=== PATIENT | female | born 1930 | race Caucasian/White ===

== ENCOUNTER 2016-05-05 02:02 | Emergency (ER) | payer MEDICARE, OTHER ==
[~2016-05-05] VITALS: Ht 170.2 cm; Wt 68.0 kg
[~2016-05-05 02:02] MED LIST: AMLO5TAB2 PO; ASPI325T32 PO; DIAZ5SOL3 PO; DIAZ5TAB3 PO; EZET10TA5 PO; HYDR118S10 PO; KCL20TCR PO; LEVO75TA6 PO; LISI10TA PO; LVT.05T PO; METO100T2 PO; METO25TA2 GT; MULT-1029 PO; POLY17PO23 PO; POTA20PI IV; SENN-75 PO; SIMV40TA4 PO; STOOL SOFTNER PO; TRAM50TA2 PO; VIT1CAPS14 PO; VITAMIN C PO; VITAMIN D PO
--- OUTSIDE RECORDS SUMMARY | 2016-05-05 02:10 | XMS REPORT | Clinical Summary ---
Author Author User, [place] Organization [facility] Physician [place] Address Unknown Phone Unavailable Allergies, Adverse Reactions, Alerts Allergy Name Reaction Description Start Date Severity Status Provider ERYTHROMYCIN room spinned Critical Active Lakshmi Monroy Conditions or Problems Problem Name Problem Code Onset Date Status Entry Date Provider Comment Standard Description Annotate KNEE PAIN 719.46 Resolved Lakshmi Monroy Pain in joint involving lower leg HYPERTENSION 401.1 Active Lakshmi Monroy Benign essential hypertension HYPERCHOLESTEROLEMIA 272.0 Active Lakshmi Monroy Pure hypercholesterolemia SINUS CONGESTION 478.1 Resolved Lakshmi Monroy Other diseases of nasal cavity and sinuses ANXIETY 300.00 Active Lakshmi Monroy Anxiety state, unspecified TRANSAMINASES, SERUM, ELEVATED 790.4 Resolved Lakshmi Monroy Nonspecific elevation of levels of transaminase or lactic acid dehydrogenase [LDH] DIZZINESS 780.4 Resolved Lakshmi Monroy Dizziness and giddiness EPIPHORA 375.20 Resolved Lakshmi Monroy Epiphora, unspecified as to cause HYPOTHYROIDISM, PRIMARY 244.9 Active Lakshmi Monroy Unspecified hypothyroidism HYPERTENSION, WHITE COAT 796.2 Active Lakshmi Monroy Elevated blood pressure reading without diagnosis of hypertension VACCINE AGAINST INFLUENZA V04.81 Resolved Lakshmi Monroy Need for prophylactic vaccination and inoculation against influenza VACCINE AGAINST PNEUMOCOCCUS + INFLUENZA V06.6 Resolved Lakshmi Monroy Need for prophylactic vaccination and inoculation against Streptococcus pneumoniae [pneumococcus] and influenza VACCINE AGAINST PNEUMOCOCCUS + INFLUENZA V06.6 Resolved Lakshmi Monroy Need for prophylactic vaccination and inoculation against Streptococcus pneumoniae [pneumococcus] and influenza SINUSITIS, SPHENOIDAL, ACUTE 461.3 Resolved Lakshmi Monroy Acute sphenoidal sinusitis UNSPECIFIED VITAMIN D DEFICIENCY 268.9 Active Lakshmi Monroy Unspecified vitamin D deficiency PREOPERATIVE EXAMINATION V72.84 Resolved Lakshmi Monroy Preoperative examination, unspecified HERPES ZOSTER 053.9 Resolved Lakshmi Monroy Herpes zoster without mention of complication DERMATITIS 692.9 Active Lakshmi Monroy Contact dermatitis and other eczema, unspecified cause WHEEZING 786.07 Resolved Lakshmi Monroy Wheezing PHARYNGITIS, ACUTE 462 Resolved Lakshmi Monroy Acute pharyngitis KNEE PAIN 719.46 Active Lakshmi Monroy Pain in joint involving lower leg EDEMA LEG 782.3 Active Lakshmi Monroy Edema COMPRESSION FRACTURE, THORACIC VERTEBRA 805.2 Active Lakshmi Monroy Closed fracture of dorsal [thoracic] vertebra without mention of spinal cord injury IBS 564.1 Active Lakshmi Monroy Irritable bowel syndrome BACK PAIN 724.5 Active Lakshmi Monroy Backache, unspecified Medication List Medication Instructions Start Date Stop Date Generic Name NDC Status Provider Patient Instruction TRIAMCINOLONE ACETONIDE 0.5 % CREA APPLY TO AFFTECTED AREAS DAILY SPARINGLY TRIAMCINOLONE ACETONIDE 83423669809 Active Lakshmi Monroy ACLOVATE 0.05 % CREA apply to affected area on ear sparingly once daily prn ALCLOMETASONE DIPROPIONATE 32571164643 No Longer Active Susan FORTUNE NASAL SPRAY (DEXAMETHASONE, GENTAMICIN, SALINE) 2 puffs each nostril TID for [address] FORTUNE NASAL SPRAY ( DEXAMETHASONE, GENTAMICIN, SALINE) No Longer Active Lakshmi Monroy LASIX 20 MG TAB 1 PO daily prn swelling FUROSEMIDE 72189388347 Active Lakshmi Monroy ULTRAM 50 MG TAB 1 PO TID prn TRAMADOL HCL 92495843213 Active Lakshmi Monroy KLOR-CON M20 20 MEQ CR-TABS 1 po daily POTASSIUM CHLORIDE HALINA CR 90418232296 Active Susan Figueroa ZETIA 10 MG TABS 1 PO daily EZETIMIBE 91853466252 No Longer Active Lakshmi Monroy NORVASC 5 MG TAB 1 PO QD AMLODIPINE BESYLATE 80719948713 Active Susan Figueroa ULTRAM 50 MG TAB 1 PO TID prn TRAMADOL HCL 02094855417 No Longer Active Lakshmi Monroy SYNTHROID 75 MCG TABS 1 PO daily LEVOTHYROXINE SODIUM 99130501413 Active Susan FORTUNE NASAL SPRAY (DEXAMETHASONE, GENTAMICIN, SALINE) 2 puffs each nostril TID for [address] FORTUNE NASAL SPRAY ( DEXAMETHASONE, GENTAMICIN, SALINE) No Longer Active Lakshmi Monroy PREDNISONE 20 MG TAB 2 pills at once for 5 days then 1 pill daily for 5 days PREDNISONE 97695272591 No Longer Active Lakshmi Monroy ATROVENT 0.06 % SOLN 2 puffs each nostril TID for 7 days IPRATROPIUM BROMIDE 04877801943 No Longer Active Lakshmi Monroy PREDNISONE 20 MG TAB 2 pills at once for 3 days then 1 pill daily for 3 days PREDNISONE 90603817850 No Longer Active Lakshmianaid Monroy PREDNISONE 20 MG TAB 2 pills at once for 2 days then 1 pill daily for 2 days PREDNISONE 54668749995 No Longer Active Lakshmi Estela Monroy AUGMENTIN 500-125 MG TAB 1 PO BID AMOXICILLIN-POT CLAVULANATE 22475352878 No Longer Active Lakshmi Estela REARDON'S NASAL SPRAY (DEXAMETHASONE, GENTAMICIN, SALINE) 2 puffs each nostril TID for [address] FORTUNE NASAL SPRAY ( DEXAMETHASONE, GENTAMICIN, SALINE) No Longer Active Lakshmi Estela Monroy LORTAB 5 5-500 MG TABS 1 to 2 PO Q6hrs prn ACETAMINOPHEN-HYDROCODONE 88268492055 No Longer Active Lakshmianaid Monroy VALTREX 1 GM TAB 1 PO BID VALACYCLOVIR HCL 19660173004 No Longer Active Lakshmianaid Monroy HYDROCHLOROTHIAZIDE 25 MG TAB 1 PO QD (on hold 11/16/10 due to hyponatremia and hypokalemia) HYDROCHLOROTHIAZIDE 32605761288 No Longer Active Lakshmianaid Monroy ARTHROTEC 50 50-200 MG-MCG TABS 1 PO daily DICLOFENAC -MISOPROSTOL 16556551946 No Longer Active Lakshmianaid Monroy PREDNISONE 20 MG TAB 2 pills at once for 2 days then 1 pill daily for 2 days PREDNISONE 24789009992 No Longer Active Lakshmi Estela Monroy AUGMENTIN 500-125 MG TAB 1 PO BID AMOXICILLIN-POT CLAVULANATE 87848194522 No Longer Active Lakshmi REARDON'Nelli NASAL SPRAY (DEXAMETHASONE, GENTAMICIN, SALINE) 2 puffs each nostril TID for [address] FORTUNE NASAL SPRAY ( DEXAMETHASONE, GENTAMICIN, SALINE) No Longer Active Lakshmi Monroy ZOCOR 40 MG TABS 1 PO daily SIMVASTATIN 32925664644 Active Susan Figueroa FISH OIL 1000 MG CAPS 1 PO QD OMEGA-3 FATTY ACIDS 17242618985 Active Susan Figueroa VITAMIN D 1000 UNIT TABS 1 PO Daily CHOLECALCIFEROL 42092634807 Active Lakshmi Monroy LOTRIMIN AF 1 % SOLN 2 drops as directed prn itching. CLOTRIMAZOLE 82390107836 Active Lakshmianaid Monroy ROBITUSSIN A-C 10-100 MG/5ML SYRUP 1 teaspoon PO Q 4-6 hr prn ROBITUSSIN A-C 10-100 MG/5ML SYRUP 18701411940 No Longer Active Lakshmi Monroy ATROVENT 0.06 % SOLN 2 puffs each nostril TID prn runny nose 2007 IPRATROPIUM BROMIDE 64622812537 No Longer Active Lakshmi Monroy ROBITUSSIN A-C 10-100 MG/5ML SYRUP 5cc PO Q 4-6 hr prn ROBITUSSIN A-C 10-100 MG/5ML SYRUP 53850662315 No Longer Active Lakshmi REARDON'Nelli NASAL SPRAY (DEXAMETHASONE, GENTAMICIN, SALINE) 2 puffs each nostril TID for [address] FORTUNE NASAL SPRAY ( DEXAMETHASONE, GENTAMICIN, SALINE) No Longer Active Lakshmi Monroy AUGMENTIN 500-125 MG TAB 1 PO BID AMOXICILLIN-POT CLAVULANATE 33786420118 No Longer Active Lakshmi Monroy TRIAMCINOLONE ACETONIDE 0.1 % OINT apply sparingly to left ear skin daily prn TRIAMCINOLONE ACETONIDE 04425739875 No Longer Active Lakshmi Monroy ZADITOR 0.025 % SOLN 1 gtt in OU BID KETOTIFEN FUMARATE 10632566068 Active Lakshmianaid Monroy LUTEIN 6 MG CAPS 1 po BID LUTEIN 58143837135 Active Lakshmianaid Monroy DIAZEPAM 5 MG TAB 1 PO QAM DIAZEPAM 99480041181 Active Susan Figueroa GAURAV 180 MG TABS 1 PO daily prn FEXOFENADINE HCL Active Susan Figueroa MECLIZINE HCL 25 MG TAB 1 PO Q6hrs prn dizziness MECLIZINE HCL 58461259523 Active Irving Galeano COQ-10 30 MG CAPS 1 po QD COENZYME Q10 50648245796 No Longer Active Lakshmianaid Palmer Porfirio OSTEO COMPLEX CAPS 1 po QD MULTIPLE VITAMINS- MINERALS 99769550927 No Longer Active Lakshmi Estela Porfirio VITAMIN C 1000 MG TABS 1 po QD prn ASCORBIC ACID 61556250550 Active Lakshmianaid Palmer Porfirio ASPIRIN 81 MG TABS 1 PO QD ASPIRIN 88893792667 Active Lakshmi Estela Porfirio VITAMIN E 400 IU CAPS 1 po QD VITAMIN E 85959058540 No Longer Active Lakshmi Estela Porfirio CALCIUM 500-100-40 CHEW 2 PO QAM CALCIUM-VITAMIN D-VITAMIN K 20258822155 Active Lakshmi Estela Porfirio CALCIUM 500 MG TABS 1 po QD CALCIUM 03358217805 No Longer Active Lakshmianaid Palmer Porfirio MULTIVITAMINS TABS 1 po QD MULTIPLE VITAMIN 17279545411 Active Lakshmianaid Martineze Porfirio METOPROLOL TARTRATE 100 MG TABS 1 po QD METOPROLOL TARTRATE 24136788592 Active Susanstefan Figueroa LISINOPRIL 10 MG TABS 1 po QD LISINOPRIL 19709892738 Active Susan Henry LESCOL 40 MG CAP 1 po QD FLUVASTATIN SODIUM 97184852455 No Longer Active Susan Figueroa Vital Signs Date Name Value Unit Range Description blood pressure, diastolic - 8462-4 80 mm[Hg] BP horner blood pressure, systolic - 8480-6 140 mm[Hg] BP sys pulse rate E&M - 8867-4 84 /min Heart rate respiratory rate E&M - 9279-1 14 /min Resp rate temperature E&M 98.6 [degF] Body temperature weight E&M - 3141-9 160 [lb_av] Weight Measured blood pressure, diastolic - 8462-4 98 mm[Hg] BP horner blood pressure, systolic - 8480-6 138 mm[Hg] BP sys pulse rate E&M - 8867-4 76 /min Heart rate respiratory rate E&M - 9279-1 14 /min Resp rate temperature E&M 97.9 [degF] Body temperature weight E&M - 3141-9 160 [lb_av] Weight Measured blood pressure, diastolic - 8462-4 82 mm[Hg] BP horner blood pressure, systolic - 8480-6 132 mm[Hg] BP sys pulse rate E&M - 8867-4 74 /min Heart rate respiratory rate E&M - 9279-1 14 /min Resp rate weight E&M - 3141-9 165 [lb_av] Weight Measured blood pressure, diastolic - 8462-4 80 mm[Hg] BP horner blood pressure, systolic - 8480-6 130 mm[Hg] BP sys pulse rate E&M - 8867-4 90 /min Heart rate respiratory rate E&M - 9279-1 14 /min Resp rate blood pressure, diastolic - 8462-4 72 mm[Hg] BP horner blood pressure, systolic - 8480-6 136 mm[Hg] BP sys respiratory rate E&M - 9279-1 74 /min Resp rate blood pressure, diastolic - 8462-4 86 mm[Hg] BP horner blood pressure, systolic - 8480-6 146 mm[Hg] BP sys pulse rate E&M - 8867-4 80 /min Heart rate respiratory rate E&M - 9279-1 14 /min Resp rate temperature E&M 98.6 [degF] Body temperature weight E&M - 3141-9 180 [lb_av] Weight Measured Diagnostic Results Date Name Value Unit Range Description Clinical Lists Update: CBC,CMP,Chol,Trig,TSH,Free Te - Chemistry Estimated Glomerular Filtration Rate (calc) 56 mL/min/1.73m2 glucose, plasma fasting 108 mg/dL albumin, serum 3.8 g/dL alkaline phosphatase, serum 97 U/L urea nitrogen, blood 8 mg/dL calcium, serum 9.3 mg/dL chloride, serum 102 mmol/L cholesterol, serum 130 mg/dL anion gap, serum 15 sodium, serum 140 mmol/L triglyceride, serum, fasting 129 mg/dL bilirubin, serum, total 0.5 mg/dL alanine aminotransferase (SGPT), serum 10 U/L aspartate aminotransferase (SGOT), serum 18 U/L protein, total, serum 6.5 g/dL potassium, serum 3.5 mmol/L thyroid stimulating hormone, serum 3.52 u[iU]/mL thyroxine, serum, free 0.90 ng/dL creatinine, serum 1.0 mg/dL carbon dioxide, venous blood 27.0 mmol/L Clinical Lists Update: CBC,CMP,Chol,Trig,TSH,Free Te - Hematology hemoglobin, blood 12.9 g/dL platelet count 259 10*3/mm3 erythrocyte (RBC) count 4.33 10*6/mm3 leukocyte count, blood 6.9 10*3/mm3 mean corpuscular volume, RBC 96 fL red blood cell distribution width 16.5 % hematocrit, blood 42 % Clinical Lists Update: CMP,FLP,TSH,FREE T4 - Chemistry Estimated Glomerular Filtration Rate (calc) 52 mL/min/1.73m2 glucose, plasma fasting 97 mg/dL cholesterol/HDL ratio, serum, percent 3.3 anion gap, serum 12 sodium, serum 139 mmol/L triglyceride, serum, fasting 130 mg/dL bilirubin, serum, total 0.7 mg/dL alanine aminotransferase (SGPT), serum 11 U/L aspartate aminotransferase (SGOT), serum 20 U/L protein, total, serum 6.6 g/dL potassium, serum 3.6 mmol/L LDL cholesterol, serum 91 mg/dL thyroid stimulating hormone, serum 1.62 u[iU]/mL HDL cholesterol, serum 50.0 mg/dL thyroxine, serum, free 0.89 ng/dL creatinine, serum 1.1 mg/dL carbon dioxide, venous blood 29.0 mmol/L cholesterol, serum 167 mg/dL chloride, serum 102 mmol/L calcium, serum 9.2 mg/dL urea nitrogen, blood 12 mg/dL alkaline phosphatase, serum 56 U/L albumin, serum 4.0 g/dL Estimated Glomerular Filtration Rate (calc) 51 mL/min/1.73m2 albumin, serum 4.1 g/dL cholesterol/HDL ratio, serum, percent 3.3 anion gap, serum 15 sodium, serum 139 mmol/L triglyceride, serum, fasting 118 mg/dL bilirubin, serum, total 0.8 mg/dL alanine aminotransferase (SGPT), serum 12 U/L aspartate aminotransferase (SGOT), serum 21 U/L protein, total, serum 7.0 g/dL potassium, serum 3.6 mmol/L LDL cholesterol, serum 98 mg/dL thyroid stimulating hormone, serum 2.84 u[iU]/mL HDL cholesterol, serum 52.0 mg/dL thyroxine, serum, free 0.99 ng/dL creatinine, serum 1.1 mg/dL carbon dioxide, venous blood 27.0 mmol/L cholesterol, serum 174 mg/dL chloride, serum 101 mmol/L calcium, serum 9.2 mg/dL urea nitrogen, blood 13 mg/dL alkaline phosphatase, serum 56 U/L glucose, plasma fasting 95 mg/dL Encounters Code Encounter Date Provider Facility CPT-43998 Ofc Vst, Est Level IV 17:40:50 CDT Lakshmi Monroy, DO, FACP CPT-61215 Ofc Vst, Est Level III 17:12:09 [facility] Lakshmi Monroy DO, FACP CPT-84239 Ofc Vst, Est Level III 12:57:14 CDT Lakshmianaid Monroy, DO, FACP CPT-14009 Ofc Vst, Est Level III 15:49:58 CDT Lakshmi Monroy, DO, FACP CPT-13387 Ofc Vst, Est Level III 14:22:31 CDT Lakshmi Monroy, DO, FACP CPT-84861 Ofc Vst, Est Level III 15:31:21 [facility] Lakshmi Monroy, DO, FACP CPT-24732 Ofc Vst, Est Level III 14:41:12 CDT Lakshmi Monroy, DO, FACP CPT-50237 Ofc Vst, Est Level III 10:08:50 [facility] Lakshmi Monroy, DO, FACP CPT-77860 Ofc Vst, Est Level III 14:48:24 [facility] Lakshmianaid Aiken Monroy, DO, FACP CPT-37274 Ofc Vst, Est Level III 13:51:41 [employer] Lakshmi Estela Aiken Monroy, DO, FACP CPT-43739 Ofc Vst, Est Level III 14:02:30 [employer] Lakshmi Estela Aiken Monroy, DO, FACP CPT-32790 Ofc Vst, Est Level III 15:29:05 CDT Lakshmi Estela Aiken Porfirio, DO, FACP CPT-20803 Ofc Vst, Est Level IV 13:51:18 CDT Lakshmi Estela Aiken Porfirio, DO, FACP CPT-51334 Ofc Vst, Est Level IV 15:07:40 CDT Lakshmi Estela Aiken Porfirio, DO, FACP CPT-63768 Ofc Vst, Est Level IV 14:34:41 CDT Lakshmianaid Aiken Porfirio, DO, FACP CPT-44864 Ofc Vst, Est Level IV 14:33:30 [facility] Lakshmi Aiken Porfirio, DO, FACP CPT-59891 Ofc Vst, Est Level IV 11:09:55 CDT Lakshmianaid Ramirezner Lakshmi Aiken Porfirio, DO, FACP CPT-77246 Ofc Vst, Est Level IV 13:44:44 [facility] Lakshmi Aiken Porfirio, DO, FACP CPT-08389 Ofc Vst, Est Level IV 14:33:25 CDT Lakshmianaid Aiken Porfirio, DO, FACP CPT-20534 Office Consult, Level IV 08:34:00 CDT Susan Henry Lakshmi Aiken Porfirio, DO, FACP CPT-23829 Ofc Vst, Est Level IV 14:51:56 CDT Lakshmi Estelacoleman Monroy, DO, FACP CPT-47262 Ofc Vst, Est Level IV 14:26:00 [employer] Lakshmianaid Palmer Porfirio Monroy, DO, FACP CPT-39725 Ofc Vst, Est Level IV 14:05:51 CDT Lakshmianaid Palmer Porfirio Monroy, DO, FACP CPT-96331 Ofc Vst, Est Level IV 10:24:07 CDT Lakshmi Estela Monroy Lakshmi Nelli Porfirio, DO, FACP CPT-04161 Ofc Vst, Est Level III 15:06:04 [employer] Lakshmi Beauchampanne Porfirio Monroy, DO, FACP CPT-36731 Ofc Vst, Est Level IV 13:53:46 [employer] Lakshmi Estela Porfirio Monroy, DO, FACP CPT-26666 Ofc Vst, Est Level IV 13:58:24 CDT Lakshmi Estela Porfirio Monroy, DO, FACP CPT-72993 Ofc Vst, Est Level IV 13:56:34 CDT Lakshmianaid Monroy [facility] [facility] [place] CPT-70496 Ofc Vst, Est Level IV 14:25:47 [facility] Lakshmi Monroy [facility] [facility] [place] CPT-95815 Ofc Vst, Est Level IV 10:19:35 CDT Lakshmi Monroy [facility] [facility] [place] CPT-63681 Ofc Vst, Est Level IV 15:24:38 CDT Lakshmianaid Monroy [facility] [facility] [place] CPT-61728 Ofc Vst, Est Level IV 15:25:43 [facility] Lakshmi Monroy [facility] [facility] [place] CPT-12375 Ofc Vst, Est Level IV 14:05:37 [facility] Lakshmi Monroy [facility] [facility] [place] CPT-40656 Ofc Vst, Est Level IV 14:20:46 CDT Lakshmi Monroy [facility] [place] CPT-43834 Ofc Vst, Est Level IV 08:27:24 CDT Lakshmi Monroy [facility] [place] CPT-87874 Ofc Vst, New Level III 16:27:18 [employer] Lakshmi Monroy [facility] [place] Procedures Code Procedure Name Date Entry Date Standard Description CPT-G0439 Medicare Annual Wellness Visit 09:55:52 CDT CPT-G8443 E-Prescribing Medication Sent 14:22:31 CDT CPT-G8445 E-Prescribing Not sent due to no medication given 15:31: 21 [facility] CPT-G8443 E-Prescribing Medication Sent 14:41:12 CDT CPT-G8445 E-Prescribing Not sent due to no medication given 16:05: 09 CDT CPT-G0439 Medicare Annual Wellness Visit 16:05:09 CDT CPT-G8443 E-Prescribing Medication Sent 10:08:50 [facility] CPT-G8443 E-Prescribing Medication Sent 14:48:24 [facility] CPT-G8446 E-Prescribing not done due to controlled substance 13:51 :41 [facility] CPT-G8445 E-Prescribing Not sent due to no medication given 14:02: 30 [facility] CPT-G0439 Medicare Annual Wellness Visit 13:36:51 CDT CPT-G0439 Medicare Annual Wellness Visit 14:31:23 [facility]E [facility] CPT-8445 E-Prescribing Not sent due to no medication given 09:54: 33 CDT CPT-G0008 Administration Influenza Vaccine 14:26:00 [facility] CPT-41174 Influenza Vaccine 14:26:00 [employer] [facility] CPT-16158 Injection, Pneumovax 13:53:46 TOE [facility] CPT-89581 Influenza Vaccine 13:53:46 TOE [facility]ER CPT-G0008 Administration Influenza Vaccine 13:53:46 TOE [facility]ER
[2016-05-05 03:12] LABS: BASOPHILS # (AUTO) 0.1 10^3/uL (0.0-0.1); BASOPHILS % (AUTO) 1 % (0-10); EOSINOPHILS # (AUTO) 0.1 10^3/uL (0.0-0.3); EOSINOPHILS % (AUTO) 2 % (0-10); LYMPHOCYTES # (AUTO) 2.2 X 10^3 (1.0-4.0); LYMPHOCYTES % (AUTO) 31 % (12-44); MEAN CORPUSCULAR HEMOGLOBIN 29 PG (25-34); MEAN CORPUSCULAR HGB CONC 33 G/DL (32-36); MEAN CORPUSCULAR VOLUME 88 FL (80-99); MEAN PLATELET VOLUME 10.7 FL (7.4-10.4); MONOCYTES # (AUTO) 0.8 X 10^3 (0.0-1.0); MONOCYTES % (AUTO) 12 % (0-12); NEUTROPHILS # (AUTO) 3.9 X 10^3 (1.8-7.8); NEUTROPHILS % (AUTO) 54 % (42-75); PLATELET COUNT 202 10^3/uL (130-400); RED BLOOD COUNT 4.83 10^6/uL (4.35-5.85); RED CELL DISTRIBUTION WIDTH 13.9 % (10.0-14.5); WHITE BLOOD COUNT 7.1 10^3/uL (4.3-11.0)
[2016-05-05 03:21] LABS: INR 0.9 (0.8-1.4); PROTHROMBIN TIME PATIENT 12.1 SEC (12.2-14.7)
--- NOTE | 2016-05-05 03:32 | ED Fall/Injury ---
General Chief Complaint: Trauma-Non Activation Stated Complaint: FALL AT HOME,RT ARM LAC & HIP PAIN,HIT HEAD Nursing Triage Note: fall from standing position while ambulating Source: patient History of Present Illness Time seen by provider: 02:10 Initial Comments PT ARRIVES VIA POV FROM HOME STATES SHE GOT OUT OF BED TO GO TO BATHROOM AND FELL OVER TO THE RIGHT, HITTING HER HEAD, RIGHT HIP AND RIGHT FOREARM AND A TABLE AND A TRASH CAN PT RECALLS FALLING AND HITTING OBJECTS, WITH NO LOSS OF CONSCIOUSNESS NO NECK OR BACK PAIN NO HEADACHE NO DIZZINESS NO PARESTHESIAS OR MOTOR DEFICITS C/O BURNING SENSATION TO RIGHT HIP HAS ABRASION TO RIGHT FOREARM HAS SMALLER ABRASION TO RIGHT EAR PT ABLE TO AMBULATE/BEAR WEIGHT PT HAS ISSUES WITH ANXIETY AND TOOK A VALIUM AT 0150 PRIOR TO COMING TO ER Location Injury Occurred: pt home in bedroom PCP: DR. THOMPSON Allergies and Home Medications Allergies Coded Allergies: erythromycin base (Verified Allergy, Unknown, 01/17/14) tramadol (Verified Adverse Reaction, Mild, N/V, Tremor, 05/05/16) Home Medications 1 TAB PO DAILY (Reported) 1 TAB PO DAILY (Reported) Amlodipine Besylate 5 Mg Tablet 5 MG PO DAILY (Reported) Aspirin 325 Mg Tablet.dr 325 MG PO 1200 (Reported) Diazepam 5 Mg Tablet 2.5-5 MG PO DAILY (Reported) TAKE 1/2 - 1 (5MG) TABLET Ezetimibe 10 Mg Tablet 10 MG PO 1800 (Reported) Hydrocodone/Acetaminophen 1 Each Tablet 1 TAB PO Q6H PRN PRN PAIN (Reported) Levothyroxine Sodium 75 Mcg Tablet 75 MCG PO DAILY (Reported) Lisinopril 10 Mg Tablet 10 MG PO DAILY (Reported) Metoprolol Tartrate 100 Mg Tablet 100 MG PO DAILY (Reported) Mu-Vits-Min Th/Lycopene/Lutein 1 Each Tablet 1 TAB PO DAILY (Reported) Polyethylene Glycol 17 Gm Pack 17 GM PO DAILY PRN PRN CONSTIPATION (Reported) Potassium Chloride 20 Meq Tab.prt.sr 20 MEQ PO DAILY (Reported) Sennosides/Docusate Sodium 1 Each Tablet 1-2 TAB PO 1800 PRN PRN CONSTIPATION ( Reported) TAKES 1-2 TABLETS Simvastatin 40 Mg Tablet 40 MG PO 1800 (Reported) Vit C/Nikita Ac/Lut/Copper/Znox 1 Each Capsule 1 TAB PO BID (Reported) Constitutional: no symptoms reported Eyes: No Symptoms Reported Ears, Nose, Mouth, Throat: see HPI Respiratory: no symptoms reportedNo short of breath Cardiovascular: no symptoms reportedNo chest pain Gastrointestinal: no symptoms reportedNo abdominal pain, No nausea, No vomiting Genitourinary: no symptoms reported Musculoskeletal: see HPI Skin: see HPI Psychiatric/Neurological: No Symptoms ReportedDenies Headache, Denies Numbness , Denies Paresthesia, Denies Pre-Existing Deficit, Denies Seizure, Denies Tingling, Denies Tremors, Denies Weakness Past Efwngfu-Qijodl-Vapqqg Hx Patient Social History Alcohol Use: Denies Use Recreational Drug Use: No Smoking Status: Never a Smoker Recent Foreign Travel: No Contact w/Someone Who Travel: No Recent Infectious Disease Expo: No Immunizations Up To Date Tetanus Booster (TDap): Less than 5yrs Date of Pneumonia Vaccine: Jan 21, 2010 Surgeries HX Surgeries: Yes (CATARACT; BILATERAL KNEE REPLACEMENTS) Surgeries: Eye Surgery, Joint Replacement, Orthopedic Respiratory Hx Respiratory Disorders: No Cardiovascular Hx Cardiac Disorders: Yes Cardiac Disorders: High Cholesterol, Hypertension Neurological Hx Neurological Disorders: No Reproductive System : No Hx Reproductive Disorders: No Sexually Transmitted Disease: No 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 Genitourinary Hx Genitourinary Disorders: Yes Genitourinary Disorders: Bladder Infection Gastrointestinal Hx Gastrointestinal Disorders: Yes Gastrointestinal Disorders: Chronic Constipation Musculoskeletal Hx Musculoskeletal Disorders: Yes (BILATERAL KNEE REPLACEMENTS) Musculoskeletal Disorders: Arthritis Endocrine Hx Endocrine Disorders: No HEENT HX ENT Disorders: Yes HEENT Disorders: Cataract, Macular Degeneration Cancer Hx Cancer: No Psychosocial Hx Psychiatric Problems: Yes Behavioral Health Disorders: Anxiety Integumentary HX Skin/Integumentary Disorder: No Blood Transfusions Hx Blood Disorders: No Adverse Reaction to a Blood Tr: No Family Medical History Family Medial History: Patient reports no known family medical history. Physical Exam Vital Signs Vital Sign - Last 12Hours Capillary Refill : Less Than 3 Seconds General Appearance: WD/WN no apparent distress HEENT: PERRL/EOMI normal ENT inspection TMs normal pharynx normal Neck: non-tender full range of motion supple normal inspection Cardiovascular: regular rate, rhythm no edema no JVD systolic murmur (FAINT) extra beats (FREQUENT ECTOPY) Respiratory: chest non-tender normal breath sounds no respiratory distress no accessory muscle use Peripheral Pulses: 2+ Dorsalis Pedis (R), 2+ Left Dors-Pedis (L), 2+ Radial Pulses (R), 2+ Radial Pulses (L) Gastrointestinal: normal bowel sounds non tender soft no organomegaly Back: normal inspection no CVA tenderness no vertebral tenderness Extremities: normal range of motion no pedal edema no calf tenderness normal capillary refill other (MILD TENDERNESS TO RIGHT HIP, WITH HEMATOMA, SKIN TEAR TO RIGHT MID FOREARM) 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 no motor/sensory deficits alert normal mood/affect oriented x 3 Skin: normal color warm/dry ecchymosis other (SKIN TEAR TO RIGHT MID FOREARM; MINOR ABRASION TO RIGHT TRAGUS AREA; HEMATOMA TO RIGHT HIP AND RIGHT FOREARM) [place] Coma Score Best Eye Response: (4) Open Spontaneously Best Verbal Response: (5) Oriented Best Motor Response: (6) Obeys Commands Indra Total: 15 Laceration Repair : Other Wound Location SKIN TEAR RIGHT FOREARM Other Closure Supply: Steri Strip 04/07", Mastisol Sterile Dressing Applied?: Yes Progress/Results/Core Measures Results/Orders Lab Results Laboratory Tests Test 05/05/16 03:00 Range/Units Activated Partial Thromboplast Time 25 24-35 SEC Alanine Aminotransferase (ALT/SGPT) 12 0-55 U/L Albumin 4.1 3.2-4.5 G/DL Alkaline Phosphatase 61 40-136 U/L Anion Gap 12 5-14 MMOL/L Aspartate Amino Transf (AST/SGOT) 19 5-34 U/L BUN/Creatinine Ratio 13 Basophils # (Auto) 0.1 0.0-0.1 10^3/uL Basophils (%) (Auto) 1 0-10 % Blood Urea Nitrogen 14 7-18 MG/DL Calcium Level 9.3 8.5-10.1 MG/DL Carbon Dioxide Level 23 21-32 MMOL/L Chloride Level 103 98-107 MMOL/L Creatinine 1.10 0.60-1.30 MG/DL Eosinophils # (Auto) 0.1 0.0-0.3 10^3/uL Eosinophils (%) (Auto) 2 0-10 % Estimat Glomerular Filtration Rate 47 Glucose Level 116 H 70-105 MG/DL Hematocrit 43 35-52 % Hemoglobin 14.1 11.5-16.0 G/DL INR Comment 0.9 0.8-1.4 Lymphocytes # (Auto) 2.2 1.0-4.0 X 10^3 Lymphocytes (%) (Auto) 31 12-44 % Mean Corpuscular Hemoglobin 29 25-34 PG Mean Corpuscular Hemoglobin Concent 33 32-36 G/DL Mean Corpuscular Volume 88 80-99 FL Mean Platelet Volume 10.7 H 7.4-10.4 FL Monocytes # (Auto) 0.8 0.0-1.0 X 10^3 Monocytes (%) (Auto) 12 0-12 % Neutrophils # (Auto) 3.9 1.8-7.8 X 10^3 Neutrophils (%) (Auto) 54 42-75 % Platelet Count 202 130-400 10^3/uL Potassium Level 3.5 L 3.6-5.0 MMOL/L Prothrombin Time 12.1 L 12.2-14.7 SEC Red Blood Count 4.83 4.35-5.85 10^6/uL Red Cell Distribution Width 13.9 10.0-14.5 % Sodium Level 138 135-145 MMOL/L Total Bilirubin 0.4 0.1-1.0 MG/DL Total Protein 7.1 6.4-8.2 G/DL White Blood Count 7.1 4.3-11.0 10^3/uL My Orders Orders-GIGI ZUNIGA DO Saline Lock/Iv-Start (05/05/16 02:18) Monitor-Rhythm Ecg Trace Only (05/05/16 02:18) Cbc With Automated Diff (05/05/16 02:18) Comprehensive Metabolic Panel (05/05/16 02:18) Protime With Inr (05/05/16 02:18) Partial Thromboplastin Time (05/05/16 02:18) Chest 1 View, Ap/Pa Only (05/05/16 02:18) Forearm, Right, 2 Views (05/05/16 02:18) Pelvis (05/05/16 02:18) Hip, Right, 2 Views (05/05/16 02:18) Ct Head/Face/Cervical Wo (05/05/16 02:18) Vital Signs/I&O Vital Sign - Last 12Hours 05/05/16 05/05/16 02:17 02:17 Temp 96.8 96.8 Pulse 95 95 Resp 22 22 B/P 197/97 197/97 Pulse Ox 96 96 O2 Delivery Room Air Room Air Blood Pressure Mean: [address] HEAD/MAXILLOFACIALS/CERVICAL SPINE--NO ACUTE PROCESS, CHRONIC DEGENERATIVE CHANGES--PER [facility] VIA FAX @ 8430 CXR--NO ACUTE PROCESS, ELEVATED RIGHT DIAPHRAGM XRAYS RIGHT FOREARM--NO ACUTE PROCESS XRAYS RIGHT HIP AND PELVIS--NO ACUTE PROCESS ALL PENDING RADIOLOGIST REVIEW Reviewed: Reviewed by Me Departure Impression Impression: Primary Impression: S/P FALL Additional Impressions: HEAD CONTUSION WITHOUT LOSS OF CONSCIOUSNESS Contusion of right hip, initial encounter Contusion of right forearm, initial encounter RIGHT FOREARM SKIN TEAR Disposition: HOME, SELF-CARE Condition: Stable Departure-Patient Inst. Referrals: ISAURO THOMPSON DO (PCP/Family) Primary Care Physician Patient Instructions: Contusion (DC), Minor Head Injury (DC), Preventing Falls in the Older Adult, Skin Abrasions (DC) Add. Discharge Instructions: ICE TO SORE AREAS AT 20 MINUTE INTERVALS LEAVE STERI STRIPS ALONE--WILL FALL OFF ON THIER OWN IN A FEW DAYS. DO NOT GET WET UNTIL STERI STRIPS FALL OFF, THEN CLEAN TWICE A DAY WITH ANTIBACTERIAL SOAP AND WATER TYLENOL OR MOTRIN , NEEDED FOR PAIN. OR YOU MAY TAKE YOUR HOME HYDROCODONE NEEDED FOR PAIN ACTIVITIES TOLERATED FOLLOW UP WITH DR JAMES IN 1 WEEK IF NO BETTER All discharge instructions reviewed with patient and/or family. Voiced understanding. GIGI ZUNIGA DO May 05, 2016 03:32
[2016-05-05 03:33] LABS: ALBUMIN 4.1 G/DL (3.2-4.5); BILIRUBIN,TOTAL 0.4 MG/DL (0.1-1.0); CALCIUM 9.3 MG/DL (8.5-10.1); CREATININE SERUM 1.1 MG/DL (0.60-1.30); POTASSIUM 3.5 MMOL/L (3.6-5.0); TOTAL PROTEIN 7.1 G/DL (6.4-8.2)
[2016-05-05 04:45] VITALS: BP 185/98
--- NOTE | 2016-05-05 06:39 | Diagnostic Imaging Report ---
INDICATION: Fall. Chest pain. FINDINGS: Portable chest shows lungs to be well-aerated and clear. There is eventration of the right hemidiaphragm. Heart is not enlarged. No evidence of pulmonary edema. No pneumothorax or pleural effusion. No bony abnormalities. IMPRESSION: No acute abnormalities demonstrated. Dictated by: Dictated on workstation # [id number]
--- NOTE | 2016-05-05 06:59 | Diagnostic Imaging Report ---
PROCEDURE: CT head, face, and cervical spine without contrast. TECHNIQUE: Multiple contiguous axial images were obtained through the head, neck, and facial bones without the use of intravenous contrast. Sagittal and coronal reformations through the cervical spine and facial bones were also performed. INDICATION: Fall. FINDINGS: CT head: There is no evidence of intracranial hemorrhage. There is generalized cortical atrophy. Periventricular white matter changes are noted. Ventricles are not dilated. There is no mass effect. No extra-axial fluid collections. Basal cisterns are clear. Mastoid air cells are well-aerated and clear. No calvarial fractures. IMPRESSION: Cortical atrophy with white matter changes consistent with chronic small vessel disease. No acute abnormalities. Facial bones: No facial bone fractures demonstrated. The paranasal sinuses are well-aerated and clear. IMPRESSION: Negative facial bones. Cervical spine: Sagittal and coronal reformatted images show mild anterolisthesis of C4 on C5 with retrolisthesis of C5 on C6 and mild anterolisthesis of C7 on T1. Facets show diffuse degenerative changes with no subluxation. No fractures demonstrated. Advanced degenerative disc disease noted most severe at C5-C6 and C6-C7. The prevertebral soft tissues are widened. IMPRESSION: Advanced degenerative cervical disc and facet disease with no acute abnormalities demonstrated. These findings are in agreement with the preliminary report. Dictated by: Dictated on workstation # [id number]
--- NOTE | 2016-05-05 07:30 | Diagnostic Imaging Report ---
INDICATION: Fall with hip pain. FINDINGS: AP pelvis shows SI joints in good alignment. There is hypertrophic bony change along the inferior one half of the SI joints bilaterally. Pubic symphysis is in good alignment. Femoral heads are in normal articulation with moderate degenerative changes noted. No fractures demonstrated. IMPRESSION: Degenerative changes of the SI joints and hips with no acute abnormality. Dictated by: Dictated on workstation # [id number]
--- NOTE | 2016-05-05 07:31 | Diagnostic Imaging Report ---
INDICATION: Right hip pain. FINDINGS: Femoral head is in normal articulation with the acetabulum. There are mild degenerative changes noted. Articulating surfaces are smooth. There are no fractures. No destructive bony lesions. IMPRESSION: Degenerative changes right hip with no acute abnormality. Dictated by: Dictated on workstation # [id number]
--- NOTE | 2016-05-05 07:34 | Diagnostic Imaging Report ---
INDICATION: Fall. FINDINGS: 2 views show no fractures or dislocation of the radius or ulna. No joint effusion. Mild degenerative changes are noted both at the elbow and the radiocarpal joint. IMPRESSION: No acute bony abnormalities. Dictated by: Dictated on workstation # [id number]
== END 2016-05-05 04:45 | disposition home or self-care (01) ==
LOC: EDUNIT# 02:02 → ER 02:04
DX: S50.811A Abrasion of right forearm, initial encounter (principal); S00.411A Abrasion of right ear, initial encounter; S70.01XA Contusion of right hip, initial encounter; M47.812 Spondylosis without myelopathy or radiculopathy, cervical region; M16.0 Bilateral primary osteoarthritis of hip; I10 Essential (primary) hypertension; Z79.82 Long term (current) use of aspirin; Z79.899 Other long term (current) drug therapy; W18.09XA Striking against other object with subsequent fall, initial encounter; Y92.013 Bedroom of single-family (private) house as the place of occurrence of the external cause; Y99.8 Other external cause status
CPT/HCPCS: 36415; 70450; 70486; 71010; 72125; 72170; 73090; 73502; 80053; 85025; 85610; 85730; 93041

== ENCOUNTER 2017-10-14 10:19 | Emergency (ER) | payer MEDICARE, OTHER ==
[~2017-10-14] VITALS: Ht 167.6 cm; Wt 74.8 kg
[2017-10-14 10:53] LABS: BASOPHILS % (AUTO) 0 % (0-10); EOSINOPHILS # (AUTO) 0.1 10^3/uL (0.0-0.3); EOSINOPHILS % (AUTO) 1 % (0-10); HEMATOCRIT 42 % (35-52); HEMOGLOBIN 14.2 G/DL (11.5-16.0); LYMPHOCYTES # (AUTO) 1.1 X 10^3 (1.0-4.0); LYMPHOCYTES % (AUTO) 11 % (12-44); MEAN CORPUSCULAR HEMOGLOBIN 30 PG (25-34); MEAN CORPUSCULAR HGB CONC 34 G/DL (32-36); MEAN CORPUSCULAR VOLUME 88 FL (80-99); MEAN PLATELET VOLUME 10.7 FL (7.4-10.4); MONOCYTES # (AUTO) 1.2 X 10^3 (0.0-1.0); MONOCYTES % (AUTO) 12 % (0-12); NEUTROPHILS # (AUTO) 7.4 X 10^3 (1.8-7.8); NEUTROPHILS % (AUTO) 76 % (42-75); PLATELET COUNT 228 10^3/uL (130-400); RED BLOOD COUNT 4.79 10^6/uL (4.35-5.85); RED CELL DISTRIBUTION WIDTH 14.2 % (10.0-14.5); WHITE BLOOD COUNT 9.8 10^3/uL (4.3-11.0)
[2017-10-14 10:54] LABS: BILIRUBIN,URINE NEGATIVE (NEGATIVE); CLARITY,URINE SLIGHTLY CLOUDY; COLOR,URINE YELLOW; GLUCOSE, URINE (UA) NEGATIVE (NEGATIVE); KETONES,URINE NEGATIVE (NEGATIVE); LEUKOCYTE ESTERASE ,URINE NEGATIVE (NEGATIVE); NITRITE,URINE NEGATIVE (NEGATIVE); PH,URINE 8 (5-9); PROTEIN,URINE 1+ (NEGATIVE); UROBILINOGEN,URINE NORMAL (NORMAL)
--- NOTE | 2017-10-14 11:09 | ED Abdominal Pain ---
General Chief Complaint: Abdominal/GI Problems Stated Complaint: ABD PAIN Nursing Triage Note: PT AMB TO ROOM 10 W/O DIFFICULTY. CO ABD PAIN/ NAUSEA THAT BEGAN YESTERDAY. Sepsis Screen: No Definite Risk Source of Information: Patient Exam Limitations: No Limitations History of Present Illness Date Seen by Provider: Oct 14, 2017 Time Seen by Provider: 10:50 Initial Comments This 87-year-old white female presents with a complaint of epigastric pain that began last night and resolved spontaneously this morning. The patient had associated nausea without vomiting. She denies ingestion of questionable food. She denies fever or chill. No one at home has been similarly affected. She denies ingestion of significant alcohol. Allergies and Home Medications Allergies Coded Allergies: erythromycin base (Verified Allergy, Unknown, 01/17/14) tramadol (Verified Adverse Reaction, Mild, N/V, Tremor, 05/05/16) Home Medications Amlodipine Besylate 5 Mg Tablet, 5 MG PO DAILY, (Reported) Aspirin 325 Mg Tablet.dr, 325 MG PO 1200, (Reported) Diazepam 5 Mg Tablet, 2.5-5 MG PO DAILY, (Reported) TAKE 1/2 - 1 (5MG) TABLET Ezetimibe 10 Mg Tablet, 10 MG PO 1800, (Reported) Hydrocodone/Acetaminophen 1 Each Tablet, 1 TAB PO Q6H PRN for PAIN, (Reported) Levothyroxine Sodium 75 Mcg Tablet, 75 MCG PO DAILY, (Reported) Lisinopril 10 Mg Tablet, 10 MG PO DAILY, (Reported) Metoprolol Tartrate 100 Mg Tablet, 100 MG PO DAILY, (Reported) Mu-Vits-Min Th/Lycopene/Lutein 1 Each Tablet, 1 TAB PO DAILY, (Reported) Polyethylene Glycol 17 Gm Pack, 17 GM PO DAILY PRN for CONSTIPATION, (Reported) Potassium Chloride 20 Meq Tab.prt.sr, 20 MEQ PO DAILY, (Reported) Sennosides/Docusate Sodium 1 Each Tablet, 1-2 TAB PO 1800 PRN for CONSTIPATION, (Reported) TAKES 1-2 TABLETS Simvastatin 40 Mg Tablet, 40 MG PO 1800, (Reported) Vit C/Nikita Ac/Lut/Copper/Znox 1 Each Capsule, 1 TAB PO BID, (Reported) [Vitamin C] , 1 TAB PO DAILY, (Reported) [Vitamin D] , 1 TAB PO DAILY, (Reported) Patient Home Medication List Home Medication List Reviewed: Yes Review of Systems Constitutional: No chills, No fever; malaise; No weakness EENTM: No Blurred Vision Respiratory: Denies Cough Cardiovascular: Denies Chest Pain Gastrointestinal: See HPI; Denies Abdomen Distended; Abdominal Pain (patient is having sharp epigastric pain that does not radiate. This lasted until this morning.), Nausea Genitourinary: Denies Burning Musculoskeletal: No back pain Skin: No change in color Psychiatric/Neurological: No Symptoms Reported Endocrine: No Symptoms Reported Hematologic/Lymphatic: No Symptoms Reported Past Ywtnifh-Yigaoi-Alikaa Hx Past Med/Social Hx: Reviewed Nursing Past Med/Soc Hx Patient Social History Alcohol Use: Denies Use Recreational Drug Use: No Smoking Status: Never a Smoker 2nd Hand Smoke Exposure: No Recent Foreign Travel: No Contact w/Someone Who Travel: No Recent Infectious Disease Expo: No Recent Hopitalizations: No Physical Abuse: No Sexual Abuse: No Immunizations Up To Date Tetanus Booster (TDap): Less than 5yrs Date of Pneumonia Vaccine: Jan 21, 2010 Seasonal Allergies Seasonal Allergies: No Past Medical History Surgeries: Yes (CATARACT; BILATERAL KNEE REPLACEMENTS) Eye Surgery, Joint Replacement, Orthopedic Respiratory: No Cardiac: Yes High Cholesterol, Hypertension Neurological: No 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 Physical Exam Vital Signs Vital Signs - First Documented 10/14/17 10:25 Temp 96.0 Pulse 85 Resp 15 B/P (MAP) 192/104 (133) Pulse Ox 96 O2 Delivery Room Air O2 Flow Rate 0 Capillary Refill : Less Than 3 Seconds Height/Weight/BMI Height: 5'6.00" Weight: 165lbs. oz. 74.676078dq; BMI Method:Stated General Appearance: WD/WN, no apparent distress HEENT: normal ENT inspection Neck: full range of motion, normal inspection Respiratory: lungs clear Cardiovascular: normal peripheral pulses, regular rate, rhythm Gastrointestinal: normal bowel sounds, non tender, soft Extremities: normal range of motion, non-tender, normal inspection Back: normal inspection Neurologic/Psychiatric: no motor/sensory deficits, alert, normal mood/affect Skin: normal color, warm/dry Progress/Results/Core Measures Results/Orders Lab Results Laboratory Tests Test 10/14/17 10:25 10/14/17 10:30 Range/Units Urine Color YELLOW Urine Clarity SLIGHTLY CLOUDY Urine pH 8 5-9 Urine Specific [place] 1.015 L 1.016-1.022 Urine Protein 1+ H NEGATIVE Urine Glucose (UA) NEGATIVE NEGATIVE Urine Ketones NEGATIVE NEGATIVE Urine Nitrite NEGATIVE NEGATIVE Urine Bilirubin NEGATIVE NEGATIVE Urine Urobilinogen NORMAL NORMAL MG/DL Urine Leukocyte Esterase NEGATIVE NEGATIVE Urine RBC (Auto) 1+ H NEGATIVE Urine RBC 0-2 /HPF Urine WBC NONE /HPF Urine Squamous Epithelial Cells 0-2 /HPF Urine Crystals NONE /LPF Urine Bacteria TRACE /HPF Urine Casts PRESENT /LPF Urine Hyaline Casts 0-2 H /LPF Urine Mucus SMALL H /LPF Urine Culture Indicated NO White Blood Count 9.8 4.3-11.0 10^3/uL Red Blood Count 4.79 4.35-5.85 10^6/uL Hemoglobin 14.2 11.5-16.0 G/DL Hematocrit 42 35-52 % Mean Corpuscular Volume 88 80-99 FL Mean Corpuscular Hemoglobin 30 25-34 PG Mean Corpuscular Hemoglobin Concent 34 32-36 G/DL Red Cell Distribution Width 14.2 10.0-14.5 % Platelet Count 228 130-400 10^3/uL Mean Platelet Volume 10.7 H 7.4-10.4 FL Neutrophils (%) (Auto) 76 H 42-75 % Lymphocytes (%) (Auto) 11 L 12-44 % Monocytes (%) (Auto) 12 0-12 % Eosinophils (%) (Auto) 1 0-10 % Basophils (%) (Auto) 0 0-10 % Neutrophils # (Auto) 7.4 1.8-7.8 X 10^3 Lymphocytes # (Auto) 1.1 1.0-4.0 X 10^3 Monocytes # (Auto) 1.2 H 0.0-1.0 X 10^3 Eosinophils # (Auto) 0.1 0.0-0.3 10^3/uL Basophils # (Auto) 0.0 0.0-0.1 10^3/uL Sodium Level 139 135-145 MMOL/L Potassium Level 4.0 3.6-5.0 MMOL/L Chloride Level 102 98-107 MMOL/L Carbon Dioxide Level 25 21-32 MMOL/L Anion Gap 12 5-14 MMOL/L Blood Urea Nitrogen 12 7-18 MG/DL Creatinine 0.98 0.60-1.30 MG/DL Estimat Glomerular Filtration Rate 54 BUN/Creatinine Ratio 12 Glucose Level 102 70-105 MG/DL Calcium Level 10.0 8.5-10.1 MG/DL Total Bilirubin 0.9 0.1-1.0 MG/DL Aspartate Amino Transf (AST/SGOT) 18 5-34 U/L Alanine Aminotransferase (ALT/SGPT) 9 0-55 U/L Alkaline Phosphatase 62 40-136 U/L Total Protein 7.7 6.4-8.2 GM/DL Albumin 4.2 3.2-4.5 GM/DL Lipase 29 8-78 U/L My Orders Orders - ANTHONY VILLALBA MD Cbc With Automated Diff (10/14/17 10:39) Comprehensive Metabolic Panel (10/14/17 10:39) Lipase (10/14/17 10:39) Ua Culture If Indicated (10/14/17 10:39) Ct Abdomen/Pelvis Wo (10/14/17 10:39) Ns Iv 1000 Ml (Sodium Chloride 0.9%) (10/14/17 12:00) Vital Signs/I&O 10/14/17 10:25 Temp 96.0 Pulse 85 Resp 15 B/P (MAP) 192/104 (133) Pulse Ox 96 O2 Delivery Room Air O2 Flow Rate 0 Blood Pressure Mean: 133 Progress Progress Note : Time: 13:11 Progress Note Patient received a liter normal saline. Her laboratory evaluation demonstrated no acute findings. CT the abdomen and pelvis however demonstrated cholelithiasis with questionable thickened gallbladder wall. I discussed findings with the patient and her . We agreed to a close follow-up on Tuesday with her physician for further evaluation and treatment. I sent a prescription for a few Vicodin and Zofran should she have subsequent nausea or pain. Asked that she return if she had any recurrence of her abdominal pain. Departure Impression Primary Impression: Cholelithiasis Qualified Codes: K80.20 - Calculus of gallbladder without cholecystitis without obstruction Disposition: HOME, SELF-CARE Condition: Improved Departure-Patient Inst. Decision time for Depature: 13:14 Referrals: ISAURO THOMPSON DO (PCP/Family) Primary Care Physician Patient Instructions: Gallstones Add. Discharge Instructions: Close follow-up with your doctor Tuesday. Zofran if nausea recurs. Vicodin if pain recurs. Return if any problems or questions. All discharge instructions reviewed with patient and/or family. Voiced understanding. ANTHONY VILLALBA MD Oct 14, 2017 11:09
[2017-10-14 11:14] LABS: HYALINE CASTS, URINE 0-2 /LPF
[2017-10-14 11:14] LABS: ALBUMIN 4.2 GM/DL (3.2-4.5); BILIRUBIN,TOTAL 0.9 MG/DL (0.1-1.0); CREATININE SERUM 0.98 MG/DL (0.60-1.30); TOTAL PROTEIN 7.7 GM/DL (6.4-8.2)
[2017-10-14 11:15] LABS: BACTERIA,URINE TRACE /HPF; RBC,URINE 0-2 /HPF; SQUAMOUS EPITHELIAL CELL,UR 0-2 /HPF
[2017-10-14] MEDS ORDERED: NS IV 1000 ML 1,000 ML IV SCH (12:00)
--- NOTE | 2017-10-14 12:00 | Diagnostic Imaging Report ---
PROCEDURE: CT abdomen and pelvis without contrast. TECHNIQUE: Multiple contiguous axial images were obtained through the abdomen and pelvis without the use of intravenous contrast. INDICATION: Mid abdominal pain. COMPARISON: No prior studies are available for comparison. FINDINGS: Imaging through the lung bases demonstrates some scarring or atelectasis in the right middle lobe and right lower lobe. No discrete liver mass is identified. Gallbladder contains multiple stones. There is questionable gallbladder wall thickening present. No definite biliary ductal dilatation is seen. There is a tiny density identified in the distal common duct near the ampulla. This is seen on image 38, series 2. Possibility of a common duct stone cannot be entirely excluded. The pancreas and spleen are unremarkable. No adrenal mass is identified. The left kidney is unremarkable. Right kidney contains a 5.4 cm cyst. The aorta is heavily calcified but nonaneurysmal. There is a tiny fat-containing umbilical hernia. Small and large bowel loops appear to be normal in caliber. No obstruction is seen. There is diverticulosis but no evidence of acute diverticulitis. The bladder and uterus are unremarkable. IMPRESSION: 1. Cholelithiasis and questionable gallbladder wall thickening. There is also a questionable tiny stone in the distal common duct, but no ductal dilatation is seen. Further evaluation with gallbladder ultrasound would be useful for better characterization. 2. Right renal cyst. 3. Uncomplicated diverticulosis. Dictated by: Dictated on workstation # [id number]
[2017-10-14 13:22] VITALS: BP 192/104
[2017-10-24] MEDS ORDERED: ACHD5005 PO (12:33)
== END 2017-10-14 13:22 | disposition home or self-care (01) ==
LOC: EDUNIT# 10:19 → ER 10:21
DX: K80.20 Calculus of gallbladder without cholecystitis without obstruction (principal); E78.00 Pure hypercholesterolemia, unspecified; I10 Essential (primary) hypertension; E03.9 Hypothyroidism, unspecified; F41.9 Anxiety disorder, unspecified; Z87.448 Personal history of other diseases of urinary system; Z88.0 Allergy status to penicillin; Z88.6 Allergy status to analgesic agent; Z79.82 Long term (current) use of aspirin; Z96.653 Presence of artificial knee joint, bilateral
CPT/HCPCS: 36415; 74176; 80053; 81000; 83690; 85025; 96360

== ENCOUNTER 2017-10-21 05:33 | Outpatient (CLI) | payer MEDICARE, OTHER ==
[~2017-10-21] VITALS: Ht 167.6 cm; Wt 74.8 kg
[2017-10-21] MEDS ORDERED: VITA400C60 PO (08:34)
[2017-10-21] MEDS ORDERED: METO100T12 PO (08:34)
[2017-10-21] MEDS ORDERED: LEVO75TA6 PO (08:34)
[2017-10-21] MEDS ORDERED: ASPI-586 PO (08:34)
[2017-10-21] MEDS ORDERED: VIT1CAPS44 PO (08:34)
[2017-10-21] MEDS ORDERED: ASCO100099 PO (08:34)
[2017-10-21] MEDS ORDERED: SIMV40TA4 PO (08:34)
[2017-10-21] MEDS ORDERED: CALC-927 PO (08:34)
[2017-10-21] MEDS ORDERED: MULT-1029 PO (08:34)
[2017-10-21] MEDS ORDERED: LISI10TA2 PO (08:34)
[2017-10-21] MEDS ORDERED: MECL-106 PO (08:34)
[2017-10-21] MEDS ORDERED: AMLO2.5T PO (08:34)
[2017-10-21] MEDS ORDERED: FEXO1TAB43 PO (08:34)
[2017-10-21] MEDS ORDERED: OMG1KC PO (08:34)
[2017-10-21] MEDS ORDERED: POTA-51 PO (08:34)
[2017-10-21] MEDS ORDERED: CHOL400C9 PO (08:34)
[2017-10-21] MEDS ORDERED: DIAZ5TAB3 PO (08:34)
[2017-10-24] MEDS ORDERED: ACHD5005 PO (12:33)
== END 2017-10-21 08:50 ==
LOC: PREOP 05:33
PROVIDERS: ATTEND Surgery
DX: Z01.818 Encounter for other preprocedural examination (principal)

== ENCOUNTER 2017-10-24 09:45 | Day surgery (SDC) | payer MEDICARE, OTHER ==
[~2017-10-24] VITALS: Ht 167.6 cm; Wt 74.8 kg
[~2017-10-24 09:45] MED LIST changes: +AMLO2.5T PO; +ASCO100099 PO; +ASPI-586 PO; +CALC-927 PO; +CHOL400C9 PO; +FEXO1TAB43 PO; +LISI10TA2 PO; +MECL-106 PO; +METO100T12 PO; +OMG1KC PO; +POTA-51 PO; +VIT1CAPS44 PO; +VITA400C60 PO
[2017-10-24 09:55] VITALS: BP 172/88
--- OUTSIDE RECORDS SUMMARY | 2017-10-24 10:22 | XMS REPORT | Clinical Summary ---
Author Author User, RADHA Organization [facility] [place] Address Unknown Phone Unavailable Allergies, Adverse Reactions, [...] TO AFFTECTED AREAS DAILY SPARINGLY TRIAMCINOLONE ACETONIDE 52588703743 Active Lakshmi Monroy ACLOVATE 0.05 % CREA apply to affected area on ear sparingly once daily prn ALCLOMETASONE DIPROPIONATE 45367548066 No Longer Active Susan FORTUNE NASAL SPRAY (DEXAMETHASONE, GENTAMICIN, SALINE) 2 puffs each nostril TID for [address] FORTUNE NASAL SPRAY ( DEXAMETHASONE, GENTAMICIN, SALINE) No Longer Active Lakshmi Monroy LASIX 20 MG TAB 1 PO daily prn swelling FUROSEMIDE 85105094091 Active Lakshmi Monroy ULTRAM 50 MG TAB 1 PO TID prn TRAMADOL HCL 95657194382 Active Lakshmi Monroy KLOR-CON M20 20 MEQ CR-TABS 1 po daily POTASSIUM CHLORIDE HALINA CR 26904568186 Active Susan Figueroa ZETIA 10 MG TABS 1 PO daily EZETIMIBE 75405618430 No Longer Active Lakshmi Monroy NORVASC 5 MG TAB 1 PO QD AMLODIPINE BESYLATE 91673880755 Active Susan Figueroa ULTRAM 50 MG TAB 1 PO TID prn TRAMADOL HCL 99570496459 No Longer Active Lakshmi Monroy SYNTHROID 75 MCG TABS 1 PO daily LEVOTHYROXINE SODIUM 23684129122 Active Susan FORTUNE NASAL SPRAY (DEXAMETHASONE, GENTAMICIN, SALINE) 2 puffs each nostril TID for [address] FORTUNE NASAL SPRAY ( DEXAMETHASONE, GENTAMICIN, SALINE) No Longer Active Lakshmi Monroy PREDNISONE 20 MG TAB 2 pills at once for 5 days then 1 pill daily for 5 days PREDNISONE 44280435092 No Longer Active Lakshmi Monroy ATROVENT 0.06 % SOLN 2 puffs each nostril TID for 7 days IPRATROPIUM BROMIDE 12085060324 No Longer Active Lakshmi Monroy PREDNISONE 20 MG TAB 2 pills at once for 3 days then 1 pill daily for 3 days PREDNISONE 16659065075 No Longer Active Lakshmi Estela Monroy PREDNISONE 20 MG TAB 2 pills at once for 2 days then 1 pill daily for 2 days PREDNISONE 50945583383 No Longer Active Lakshmi Estela Monroy AUGMENTIN 500-125 MG TAB 1 PO BID AMOXICILLIN-POT CLAVULANATE 60276939732 No Longer Active Lakshmi REARDON'S NASAL SPRAY (DEXAMETHASONE, GENTAMICIN, SALINE) 2 puffs each nostril TID for [address] FORTUNE NASAL SPRAY ( DEXAMETHASONE, GENTAMICIN, SALINE) No Longer Active Lakshmi Monroy LORTAB 5 5-500 MG TABS 1 to 2 PO Q6hrs prn ACETAMINOPHEN-HYDROCODONE 47658979505 No Longer Active Lakshmi Monroy VALTREX 1 GM TAB 1 PO BID VALACYCLOVIR HCL 47393271062 No Longer Active Lakshmi Monroy HYDROCHLOROTHIAZIDE 25 MG TAB 1 PO QD (on hold 11/16/10 due to hyponatremia and hypokalemia) HYDROCHLOROTHIAZIDE 24987066012 No Longer Active Lakshmi Monroy ARTHROTEC 50 50-200 MG-MCG TABS 1 PO daily DICLOFENAC -MISOPROSTOL 60712095366 No Longer Active Lakshmi Monroy PREDNISONE 20 MG TAB 2 pills at once for 2 days then 1 pill daily for 2 days PREDNISONE 73479923544 No Longer Active Lakshmianaid Mnoroy AUGMENTIN 500-125 MG TAB 1 PO BID AMOXICILLIN-POT CLAVULANATE 53379479775 No Longer Active Lakshmi FORTUNE NASAL SPRAY (DEXAMETHASONE, GENTAMICIN, SALINE) 2 puffs each nostril TID for [address] FORTUNE NASAL SPRAY ( DEXAMETHASONE, GENTAMICIN, SALINE) No Longer Active Lakshmi Monroy ZOCOR 40 MG TABS 1 PO daily SIMVASTATIN 01061896627 Active Susan Figueroa FISH OIL 1000 MG CAPS 1 PO QD OMEGA-3 FATTY ACIDS 84119196038 Active Susan Figueroa VITAMIN D 1000 UNIT TABS 1 PO Daily CHOLECALCIFEROL 98925704901 Active Lakshmi Monroy LOTRIMIN AF 1 % SOLN 2 drops as directed prn itching. CLOTRIMAZOLE 88336551028 Active Lakshmi Monroy ROBITUSSIN A-C 10-100 MG/5ML SYRUP 1 teaspoon PO Q 4-6 hr prn ROBITUSSIN A-C 10-100 MG/5ML SYRUP 55450698266 No Longer Active Lakshmi Monroy ATROVENT 0.06 % SOLN 2 puffs each nostril TID prn runny nose 2007 IPRATROPIUM BROMIDE 26483936646 No Longer Active Lakshmi Monroy ROBITUSSIN A-C 10-100 MG/5ML SYRUP 5cc PO Q 4-6 hr prn ROBITUSSIN A-C 10-100 MG/5ML SYRUP 07864488968 No Longer Active Lakshmi REARDON'Nelli NASAL SPRAY (DEXAMETHASONE, GENTAMICIN, SALINE) 2 puffs each nostril TID for [address] FORTUNE NASAL SPRAY ( DEXAMETHASONE, GENTAMICIN, SALINE) No Longer Active Lakshmi Monroy AUGMENTIN 500-125 MG TAB 1 PO BID AMOXICILLIN-POT CLAVULANATE 78496157244 No Longer Active Lakshmi Monroy TRIAMCINOLONE ACETONIDE 0.1 % OINT apply sparingly to left ear skin daily prn TRIAMCINOLONE ACETONIDE 13408740685 No Longer Active Lakshmi Monroy ZADITOR 0.025 % SOLN 1 gtt in OU BID KETOTIFEN FUMARATE 15160423856 Active Lakshmianaid Monroy LUTEIN 6 MG CAPS 1 po BID LUTEIN 46622275719 Active Lakshmianaid Monroy DIAZEPAM 5 MG TAB 1 PO QAM DIAZEPAM 55657897213 Active Susan Figueroa GAURAV 180 MG TABS 1 PO daily prn FEXOFENADINE HCL Active Susan Figueroa MECLIZINE HCL 25 MG TAB 1 PO Q6hrs prn dizziness MECLIZINE HCL 90984437273 Active Irving Galeano COQ-10 30 MG CAPS 1 po QD COENZYME Q10 83130994092 No Longer Active Lakshmi Estela Porfirio OSTEO COMPLEX CAPS 1 po QD MULTIPLE VITAMINS- MINERALS 09262868048 No Longer Active Lakshmi Estela Monroy VITAMIN C 1000 MG TABS 1 po QD prn ASCORBIC ACID 63200068210 Active Lakshmi Estela Porfirio ASPIRIN 81 MG TABS 1 PO QD ASPIRIN 75576111297 Active Lakshmianaid Monroy VITAMIN E 400 IU CAPS 1 po QD VITAMIN E 78064252042 No Longer Active Lakshmi Estela Monroy CALCIUM 500-100-40 CHEW 2 PO QAM CALCIUM-VITAMIN D-VITAMIN K 84333261473 Active Lakshmi Estela Monroy CALCIUM 500 MG TABS 1 po QD CALCIUM 21673071758 No Longer Active Lakshmi Estela Monroy MULTIVITAMINS TABS 1 po QD MULTIPLE VITAMIN 90858843309 Active Lakshmi Estela Monroy METOPROLOL TARTRATE 100 MG TABS 1 po QD METOPROLOL TARTRATE 06991056625 Active Susan Henry LISINOPRIL 10 MG TABS 1 po QD LISINOPRIL 89214097286 Active Susan Henry LESCOL 40 MG CAP 1 po QD FLUVASTATIN SODIUM 06892324216 No Longer Active Susan Henry Vital Signs Date Name Value Unit Range [...] mg/dL Encounters Code Encounter Date Provider Facility CPT-90216 Ofc Vst, Est Level IV 17:40:50 CDT Lakshmi Monroy, DO, FACP CPT-95611 Ofc Vst, Est Level III 17:12:09 LYE BATH OPERATOR Lakshmi Monroy DO, FACP CPT-97243 Ofc Vst, Est Level III 12:57:14 CDT Lakshmianaid Monroy, DO, FACP CPT-07617 Ofc Vst, Est Level III 15:49:58 CDT Lakshmi Monroy DO, FACP CPT-11984 Ofc Vst, Est Level III 14:22:31 CDT Lakshmi Monroy, DO, FACP CPT-30977 Ofc Vst, Est Level III 15:31:21 LYE BATH OPERATOR Lakshmi Monroy, DO, FACP CPT-94460 Ofc Vst, Est Level III 14:41:12 CDT Lakshmi Monroy, DO, FACP CPT-84210 Ofc Vst, Est Level III 10:08:50 LYE BATH OPERATOR Lakshmi Monroy, DO, FACP CPT-86543 Ofc Vst, Est Level III 14:48:24 LYE BATH OPERATOR Lakshmi Aiken Monroy, DO, FACP CPT-65397 Ofc Vst, Est Level III 13:51:41 LYE BATH OPERATOR Lakshmi Aiken Monroy, DO, FACP CPT-66145 Ofc Vst, Est Level III 14:02:30 LYE BATH OPERATOR Lakshmi Aiken Monroy, DO, FACP CPT-59027 Ofc Vst, Est Level III 15:29:05 CDT Lakshmianaid Aiken Monroy, DO, FACP CPT-52858 Ofc Vst, Est Level IV 13:51:18 CDT Lakshmi Estela Aiken Monroy, DO, FACP CPT-97369 Ofc Vst, Est Level IV 15:07:40 CDT Lakshmi Estela Aiken Porfirio, DO, FACP CPT-74867 Ofc Vst, Est Level IV 14:34:41 CDT Lakshmianaid Aiken Porfirio, DO, FACP CPT-94061 Ofc Vst, Est Level IV 14:33:30 LYE BATH OPERATOR Lakshmi Aiken Monroy, DO, FACP CPT-30147 Ofc Vst, Est Level IV 11:09:55 CDT Lakshmi Aiken Porfirio, DO, FACP CPT-20617 Ofc Vst, Est Level IV 13:44:44 LYE BATH OPERATOR Lakshmi Aiken Monroy, DO, FACP CPT-21325 Ofc Vst, Est Level IV 14:33:25 CDT Lakshmi Aiken Porfirio, DO, FACP CPT-52833 Office Consult, Level IV 08:34:00 CDT Susan Henry Lakshmi Aiken Monroy, DO, FACP CPT-08911 Ofc Vst, Est Level IV 14:51:56 CDT Lakshmi Estela Aiken Porfirio, DO, FACP CPT-16036 Ofc Vst, Est Level IV 14:26:00 LYE BATH OPERATOR Lakshmi Monroy, DO, FACP CPT-39442 Ofc Vst, Est Level IV 14:05:51 CDT Lakshmi Monroy, DO, FACP CPT-36927 Ofc Vst, Est Level IV 10:24:07 CDT Lakshmi Estela Porfirio Monroy, DO, FACP CPT-98382 Ofc Vst, Est Level III 15:06:04 LYE BATH OPERATOR Lakshmi Monroy, DO, FACP CPT-68029 Ofc Vst, Est Level IV 13:53:46 LYE BATH OPERATOR Lakshmi Monroy, DO, FACP CPT-30990 Ofc Vst, Est Level IV 13:58:24 CDT Lakshmi Estela Porfirio Monroy, DO, FACP CPT-42621 Ofc Vst, Est Level IV 13:56:34 CDT Lakshmi Monroy [facility] [place] CPT-67085 Ofc Vst, Est Level IV 14:25:47 LYE BATH OPERATOR Lakshmi Monroy [facility] [place] CPT-00421 Ofc Vst, Est Level IV 10:19:35 CDT Lakshmi Monroy [facility] [place] CPT-92016 Ofc Vst, Est Level IV 15:24:38 CDT Lakshmi Monroy [facility] [place] CPT-91132 Ofc Vst, Est Level IV 15:25:43 LYE BATH OPERATOR Lakshmi Monroy [facility] [place] CPT-63983 Ofc Vst, Est Level IV 14:05:37 LYE BATH OPERATOR Lakshmi Monroy [facility] [place] CPT-17308 Ofc Vst, Est Level IV 14:20:46 CDT Lakshmi Monroy [facility] [place] CPT-10855 Ofc Vst, Est Level IV 08:27:24 CDT Lakshmi Monroy [facility] [place] CPT-87913 Ofc Vst, New Level III 16:27:18 LYE BATH OPERATOR Lakshmi Monroy [facility] [place] Procedures Code Procedure Name Date Entry Date Standard Description CPT-G0439 Medicare Annual Wellness Visit 09:55:52 CDT CPT-G8443 E-Prescribing Medication Sent 14:22:31 CDT CPT-G8445 E-Prescribing Not sent due to no medication given 15:31: 21 LYE BATH OPERATOR CPT-G8443 E-Prescribing Medication Sent 14:41:12 CDT CPT-G8445 E-Prescribing Not sent due to no medication given 16:05: 09 CDT CPT-G0439 Medicare Annual Wellness Visit 16:05:09 CDT CPT-G8443 E-Prescribing Medication Sent 10:08:50 LYE BATH OPERATOR CPT-G8443 E-Prescribing Medication Sent 14:48:24 LYE BATH OPERATOR CPT-G8446 E-Prescribing not done due to controlled substance 13:51 :41 LYE BATH OPERATOR CPT-G8445 E-Prescribing Not sent due to no medication given 14:02: 30 LYE BATH OPERATOR CPT-G0439 Medicare Annual Wellness Visit 13:36:51 CDT CPT-G0439 Medicare Annual Wellness Visit 14:31:23 LYE BATH OPERATOR CPT-8445 E-Prescribing Not sent due to no medication given 09:54: 33 CDT CPT-G0008 Administration Influenza Vaccine 14:26:00 LYE BATH OPERATOR CPT-96054 Influenza Vaccine 14:26:00 LYE BATH OPERATOR CPT-44694 Injection, Pneumovax 13:53:46 LYE BATH OPERATOR CPT-09368 Influenza Vaccine 13:53:46 LYE BATH OPERATOR CPT-G0008 Administration Influenza Vaccine 13:53:46 LYE BATH OPERATOR
[2017-10-24] MEDS ORDERED: SEVOFLURANE (ULTANE) 15 ML INHAL SOLN ONE ×5 (10:23→12:26)
[2017-10-24] MEDS ORDERED: LIDOCAINE PF 2% 5 ML (XYLOCAINE) VIAL ONE (10:23)
[2017-10-24] MEDS ORDERED: ONDANSETRON 4 MG/2 ML (SDV) Z0FRAN ONE (10:23)
[2017-10-24] MEDS ORDERED: DEXAMETHASONE 10 MG/ML (DECADRON) 1 ML VIAL ONE (10:23)
[2017-10-24] MEDS ORDERED: proPOfol 200 MG/20 ML (DIPRIVAN) VIAL IV ONE (10:23)
--- OUTSIDE RECORDS SUMMARY | 2017-10-24 10:23 | XMS REPORT | Clinical Summary ---
Author Author User, RADHA Organization [facility] [place] Address Unknown Phone Unavailable Allergies, Adverse Reactions, [...] nasal cavity and sinuses ANXIETY 300.00 Active aLkshmi Monroy Anxiety state, unspecified TRANSAMINASES, SERUM, ELEVATED [...] TO AFFTECTED AREAS DAILY SPARINGLY TRIAMCINOLONE ACETONIDE 68429070280 Active Lakshmi Monroy ACLOVATE 0.05 % CREA apply to affected area on ear sparingly once daily prn ALCLOMETASONE DIPROPIONATE 99531773817 No Longer Active Susan FORTUNE NASAL SPRAY (DEXAMETHASONE, GENTAMICIN, SALINE) 2 puffs each nostril TID for [address] FORTUNE NASAL SPRAY ( DEXAMETHASONE, GENTAMICIN, SALINE) No Longer Active Lakshmi Monroy LASIX 20 MG TAB 1 PO daily prn swelling FUROSEMIDE 50082931369 Active Lakshmi Monroy ULTRAM 50 MG TAB 1 PO TID prn TRAMADOL HCL 69073019676 Active Lakshmi Monroy KLOR-CON M20 20 MEQ CR-TABS 1 po daily POTASSIUM CHLORIDE HALINA CR 24613072120 Active Susan Figueroa ZETIA 10 MG TABS 1 PO daily EZETIMIBE 64054922276 No Longer Active Lakshmi Monroy NORVASC 5 MG TAB 1 PO QD AMLODIPINE BESYLATE 54358299429 Active Susan Figueroa ULTRAM 50 MG TAB 1 PO TID prn TRAMADOL HCL 39859274787 No Longer Active Lakshmi Monroy SYNTHROID 75 MCG TABS 1 PO daily LEVOTHYROXINE SODIUM 21061957010 Active Susan FORTUNE NASAL SPRAY (DEXAMETHASONE, GENTAMICIN, SALINE) 2 puffs each nostril TID for [address] FORTUNE NASAL SPRAY ( DEXAMETHASONE, GENTAMICIN, SALINE) No Longer Active Lakshmi Monroy PREDNISONE 20 MG TAB 2 pills at once for 5 days then 1 pill daily for 5 days PREDNISONE 39810879298 No Longer Active Lakshmi Monroy ATROVENT 0.06 % SOLN 2 puffs each nostril TID for 7 days IPRATROPIUM BROMIDE 14004471934 No Longer Active Lakshmi Monroy PREDNISONE 20 MG TAB 2 pills at once for 3 days then 1 pill daily for 3 days PREDNISONE 83145582316 No Longer Active Lakshmi Estela Monroy PREDNISONE 20 MG TAB 2 pills at once for 2 days then 1 pill daily for 2 days PREDNISONE 18686944083 No Longer Active Lakshmi Estela Monroy AUGMENTIN 500-125 MG TAB 1 PO BID AMOXICILLIN-POT CLAVULANATE 37114879869 No Longer Active Lakshmi REARDON'S NASAL SPRAY (DEXAMETHASONE, GENTAMICIN, SALINE) 2 puffs each nostril TID for [address] FORTUNE NASAL SPRAY ( DEXAMETHASONE, GENTAMICIN, SALINE) No Longer Active Lakshmi Monroy LORTAB 5 5-500 MG TABS 1 to 2 PO Q6hrs prn ACETAMINOPHEN-HYDROCODONE 98685360739 No Longer Active Lakshmi Monroy VALTREX 1 GM TAB 1 PO BID VALACYCLOVIR HCL 80464859116 No Longer Active Lakshmi Monroy HYDROCHLOROTHIAZIDE 25 MG TAB 1 PO QD (on hold 11/16/10 due to hyponatremia and hypokalemia) HYDROCHLOROTHIAZIDE 64728356267 No Longer Active Lakshmi Monroy ARTHROTEC 50 50-200 MG-MCG TABS 1 PO daily DICLOFENAC -MISOPROSTOL 09204357129 No Longer Active Lakshmi Monroy PREDNISONE 20 MG TAB 2 pills at once for 2 days then 1 pill daily for 2 days PREDNISONE 76758063957 No Longer Active Lakshmianaid Monroy AUGMENTIN 500-125 MG TAB 1 PO BID AMOXICILLIN-POT CLAVULANATE 78204340218 No Longer Active Lakshmi FORTUNE NASAL SPRAY (DEXAMETHASONE, GENTAMICIN, SALINE) 2 puffs each nostril TID for [address] FORTUNE NASAL SPRAY ( DEXAMETHASONE, GENTAMICIN, SALINE) No Longer Active Lakshmi Monroy ZOCOR 40 MG TABS 1 PO daily SIMVASTATIN 57730592211 Active Susan Figueroa FISH OIL 1000 MG CAPS 1 PO QD OMEGA-3 FATTY ACIDS 70694241302 Active Susan Figueroa VITAMIN D 1000 UNIT TABS 1 PO Daily CHOLECALCIFEROL 85020945999 Active Lakshmi Monroy LOTRIMIN AF 1 % SOLN 2 drops as directed prn itching. CLOTRIMAZOLE 40115154802 Active Lakshmi Monroy ROBITUSSIN A-C 10-100 MG/5ML SYRUP 1 teaspoon PO Q 4-6 hr prn ROBITUSSIN A-C 10-100 MG/5ML SYRUP 12751820186 No Longer Active Lakshmi Monroy ATROVENT 0.06 % SOLN 2 puffs each nostril TID prn runny nose 2007 IPRATROPIUM BROMIDE 34634808064 No Longer Active Lakshmi Monroy ROBITUSSIN A-C 10-100 MG/5ML SYRUP 5cc PO Q 4-6 hr prn ROBITUSSIN A-C 10-100 MG/5ML SYRUP 45093353677 No Longer Active Lakshmi REARDON'Nelli NASAL SPRAY (DEXAMETHASONE, GENTAMICIN, SALINE) 2 puffs each nostril TID for [address] FORTUNE NASAL SPRAY ( DEXAMETHASONE, GENTAMICIN, SALINE) No Longer Active Lakshmi Monroy AUGMENTIN 500-125 MG TAB 1 PO BID AMOXICILLIN-POT CLAVULANATE 94457695148 No Longer Active Lakshmi Monroy TRIAMCINOLONE ACETONIDE 0.1 % OINT apply sparingly to left ear skin daily prn TRIAMCINOLONE ACETONIDE 87661346306 No Longer Active Lakshmi Monroy ZADITOR 0.025 % SOLN 1 gtt in OU BID KETOTIFEN FUMARATE 80195585267 Active Lakshmianaid Monroy LUTEIN 6 MG CAPS 1 po BID LUTEIN 20097276178 Active Lakshmianaid Monroy DIAZEPAM 5 MG TAB 1 PO QAM DIAZEPAM 49118462323 Active Susan Figueroa GAURAV 180 MG TABS 1 PO daily prn FEXOFENADINE HCL Active Susan Figueroa MECLIZINE HCL 25 MG TAB 1 PO Q6hrs prn dizziness MECLIZINE HCL 48017942694 Active Irving Galeano COQ-10 30 MG CAPS 1 po QD COENZYME Q10 83574150743 No Longer Active Lakshmi Estela Porfirio OSTEO COMPLEX CAPS 1 po QD MULTIPLE VITAMINS- MINERALS 72447842934 No Longer Active Lakshmi Estela Monroy VITAMIN C 1000 MG TABS 1 po QD prn ASCORBIC ACID 65713137703 Active Lakshmi Estela Porfirio ASPIRIN 81 MG TABS 1 PO QD ASPIRIN 71179821465 Active Lakshmianaid Monroy VITAMIN E 400 IU CAPS 1 po QD VITAMIN E 13623913417 No Longer Active Lakshmi Estela Monroy CALCIUM 500-100-40 CHEW 2 PO QAM CALCIUM-VITAMIN D-VITAMIN K 57681352307 Active Lakshmi Estela Monroy CALCIUM 500 MG TABS 1 po QD CALCIUM 18118005900 No Longer Active Lakshmi Estela Monroy MULTIVITAMINS TABS 1 po QD MULTIPLE VITAMIN 63657691552 Active Lakshmi Estela Monroy METOPROLOL TARTRATE 100 MG TABS 1 po QD METOPROLOL TARTRATE 56218871652 Active Susan Henry LISINOPRIL 10 MG TABS 1 po QD LISINOPRIL 65332662075 Active Susan Henry LESCOL 40 MG CAP 1 po QD FLUVASTATIN SODIUM 41202545214 No Longer Active Susan Henry Vital Signs [...] mg/dL Encounters Code Encounter Date Provider Facility CPT-14868 Ofc Vst, Est Level IV 17:40:50 CDT Lakshmi Monroy, DO, FACP CPT-31285 Ofc Vst, Est Level III 17:12:09 REINFORCED STEEL PLACING SUPERVISOR Lakshmi Monroy DO, FACP CPT-49738 Ofc Vst, Est Level III 12:57:14 CDT Lakshmianaid Monroy, DO, FACP CPT-72713 Ofc Vst, Est Level III 15:49:58 CDT Lakshmi Monroy DO, FACP CPT-62538 Ofc Vst, Est Level III 14:22:31 CDT Lakshmi Monroy, DO, FACP CPT-98596 Ofc Vst, Est Level III 15:31:21 REINFORCED STEEL PLACING SUPERVISOR Lakshmi Monroy, DO, FACP CPT-32978 Ofc Vst, Est Level III 14:41:12 CDT Lakshmi Monroy, DO, FACP CPT-38720 Ofc Vst, Est Level III 10:08:50 REINFORCED STEEL PLACING SUPERVISOR Lakshmi Monroy, DO, FACP CPT-45965 Ofc Vst, Est Level III 14:48:24 REINFORCED STEEL PLACING SUPERVISOR Lakshmi Aiken Monroy, DO, FACP CPT-90508 Ofc Vst, Est Level III 13:51:41 REINFORCED STEEL PLACING SUPERVISOR Lakshmi Aiken Monroy, DO, FACP CPT-91469 Ofc Vst, Est Level III 14:02:30 REINFORCED STEEL PLACING SUPERVISOR Lakshmi Aiken Monroy, DO, FACP CPT-84155 Ofc Vst, Est Level III 15:29:05 CDT Lakshmianaid Aiken Monroy, DO, FACP CPT-43895 Ofc Vst, Est Level IV 13:51:18 CDT Lakshmi Estela Aiken Monroy, DO, FACP CPT-12476 Ofc Vst, Est Level IV 15:07:40 CDT Lakshmi Estela Aiken Porfirio, DO, FACP CPT-37124 Ofc Vst, Est Level IV 14:34:41 CDT Lakshmianaid Aiken Porfirio, DO, FACP CPT-64263 Ofc Vst, Est Level IV 14:33:30 REINFORCED STEEL PLACING SUPERVISOR Lakshmi Aiken Monroy, DO, FACP CPT-35108 Ofc Vst, Est Level IV 11:09:55 CDT Lakshmi Aiken Porfirio, DO, FACP CPT-13173 Ofc Vst, Est Level IV 13:44:44 REINFORCED STEEL PLACING SUPERVISOR Lakshmi Aiken Monroy, DO, FACP CPT-22760 Ofc Vst, Est Level IV 14:33:25 CDT Lakshmi Aiken Porfirio, DO, FACP CPT-22023 Office Consult, Level IV 08:34:00 CDT Susan Henry Lakshmi Aiken Monroy, DO, FACP CPT-19791 Ofc Vst, Est Level IV 14:51:56 CDT Lakshmi Estela Aiken Porfirio, DO, FACP CPT-07904 Ofc Vst, Est Level IV 14:26:00 REINFORCED STEEL PLACING SUPERVISOR Lakshmi Monroy, DO, FACP CPT-43702 Ofc Vst, Est Level IV 14:05:51 CDT Lakshmi Monroy, DO, FACP CPT-31442 Ofc Vst, Est Level IV 10:24:07 CDT Lakshmi Estela Porfirio Monroy, DO, FACP CPT-31369 Ofc Vst, Est Level III 15:06:04 REINFORCED STEEL PLACING SUPERVISOR Lakshmi Monroy, DO, FACP CPT-43350 Ofc Vst, Est Level IV 13:53:46 REINFORCED STEEL PLACING SUPERVISOR Lakshmi Monroy, DO, FACP CPT-35399 Ofc Vst, Est Level IV 13:58:24 CDT Lakshmi Estela Porfirio Monroy, DO, FACP CPT-40260 Ofc Vst, Est Level IV 13:56:[address] [facility] [place] CPT-65113 Ofc Vst, Est Level IV 14:25:47 REINFORCED STEEL PLACING SUPERVISOR Lakshmi Monroy [facility] [place] CPT-83839 Ofc Vst, Est Level IV 10:19:[address] [facility] [place] CPT-02180 Ofc Vst, Est Level IV 15:24:[address] [facility] [place] CPT-37744 Ofc Vst, Est Level IV 15:25:43 REINFORCED STEEL PLACING SUPERVISOR Lakshmi Monroy [facility] [place] CPT-57825 Ofc Vst, Est Level IV 14:05:37 REINFORCED STEEL PLACING SUPERVISOR Lakshmi Monroy [facility] [place] CPT-20624 Ofc Vst, Est Level IV 14:20:[address] [facility] [place] CPT-60871 Ofc Vst, Est Level IV 08:27:24 CDT Lakshmi Monroy [facility] [place] CPT-15873 Ofc Vst, New Level III 16:27:18 REINFORCED STEEL PLACING SUPERVISOR Lakshmi Monroy [facility] [place] Procedures Code Procedure Name Date Entry Date Standard Description CPT-G0439 Medicare Annual Wellness Visit 09:55:52 CDT CPT-G8443 E-Prescribing Medication Sent 14:22:31 CDT CPT-G8445 E-Prescribing Not sent due to no medication given 15:31: 21 REINFORCED STEEL PLACING SUPERVISOR CPT-G8443 E-Prescribing Medication Sent 14:41:12 CDT CPT-G8445 E-Prescribing Not sent due to no medication given 16:05: 09 CDT CPT-G0439 Medicare Annual Wellness Visit 16:05:09 CDT CPT-G8443 E-Prescribing Medication Sent 10:08:50 REINFORCED STEEL PLACING SUPERVISOR CPT-G8443 E-Prescribing Medication Sent 14:48:24 REINFORCED STEEL PLACING SUPERVISOR CPT-G8446 E-Prescribing not done due to controlled substance 13:51 :41 REINFORCED STEEL PLACING SUPERVISOR CPT-G8445 E-Prescribing Not sent due to no medication given 14:02: 30 REINFORCED STEEL PLACING SUPERVISOR CPT-G0439 Medicare Annual Wellness Visit 13:36:51 CDT CPT-G0439 Medicare Annual Wellness Visit 14:31:23 REINFORCED STEEL PLACING SUPERVISOR CPT-8445 E-Prescribing Not sent due to no medication given 09:54: 33 CDT CPT-G0008 Administration Influenza Vaccine 14:26:00 REINFORCED STEEL [employer]ACING SUPERVISOR CPT-63646 Influenza Vaccine 14:26:00 REINFORCED STEEL PLACING SUPERVISOR CPT-41317 Injection, Pneumovax 13:53:46 REINFORCED STEEL PLACING SUPERVISOR CPT-01025 Influenza Vaccine 13:53:46 REINFORCED STEEL PLACING SUPERVISOR CPT-G0008 Administration Influenza Vaccine 13:53:46 REINFORCED STEEL PLACING SUPERVISOR
[2017-10-24] MEDS ORDERED: fentaNYL INJECTION 100 MCG/2 ML AMP ONE ×2 (10:24→13:09)
--- OUTSIDE RECORDS SUMMARY | 2017-10-24 10:24 | XMS REPORT | Clinical Summary ---
Author Author User, RADHA Organization [facility] [place] Address Unknown Phone Unavailable Allergies, Adverse Reactions, [...] TO AFFTECTED AREAS DAILY SPARINGLY TRIAMCINOLONE ACETONIDE [id number] Active Lakshmi Monroy ACLOVATE 0.05 % CREA apply to affected area on ear sparingly once daily prn ALCLOMETASONE DIPROPIONATE 63794817117 No Longer Active Susan FORTUNE NASAL SPRAY (DEXAMETHASONE, GENTAMICIN, SALINE) 2 puffs each nostril TID for [address] FORTUNE NASAL SPRAY ( DEXAMETHASONE, GENTAMICIN, SALINE) No Longer Active Lakshmi Monroy LASIX 20 MG TAB 1 PO daily prn swelling FUROSEMIDE 17016975695 Active Lakshmi Monroy ULTRAM 50 MG TAB 1 PO TID prn TRAMADOL HCL 71497817676 Active Lakshmi Monroy KLOR-CON M20 20 MEQ CR-TABS 1 po daily POTASSIUM CHLORIDE HALINA CR 35540319316 Active Susan Figueroa ZETIA 10 MG TABS 1 PO daily EZETIMIBE 36569310073 No Longer Active Lakshmi Monroy NORVASC 5 MG TAB 1 PO QD AMLODIPINE BESYLATE 92069929502 Active Susan Figueroa ULTRAM 50 MG TAB 1 PO TID prn TRAMADOL HCL 35085619530 No Longer Active Lakshmi Monroy SYNTHROID 75 MCG TABS 1 PO daily LEVOTHYROXINE SODIUM 66514497948 Active Susan FORTUNE NASAL SPRAY (DEXAMETHASONE, GENTAMICIN, SALINE) 2 puffs each nostril TID for [address] FORTUNE NASAL SPRAY ( DEXAMETHASONE, GENTAMICIN, SALINE) No Longer Active Lakshmi Monroy PREDNISONE 20 MG TAB 2 pills at once for 5 days then 1 pill daily for 5 days PREDNISONE 60150216269 No Longer Active Lakshmi Monroy ATROVENT 0.06 % SOLN 2 puffs each nostril TID for 7 days IPRATROPIUM BROMIDE 43094842254 No Longer Active Lakshmi Monroy PREDNISONE 20 MG TAB 2 pills at once for 3 days then 1 pill daily for 3 days PREDNISONE 04501538756 No Longer Active Lakshmi Estela Monroy PREDNISONE 20 MG TAB 2 pills at once for 2 days then 1 pill daily for 2 days PREDNISONE 82988159290 No Longer Active Lakshmi Estela Monroy AUGMENTIN 500-125 MG TAB 1 PO BID AMOXICILLIN-POT CLAVULANATE 34308387178 No Longer Active Lakshmi REARDON'S NASAL SPRAY (DEXAMETHASONE, GENTAMICIN, SALINE) 2 puffs each nostril TID for [address] FORTUNE NASAL SPRAY ( DEXAMETHASONE, GENTAMICIN, SALINE) No Longer Active Lakshmi Monroy LORTAB 5 5-500 MG TABS 1 to 2 PO Q6hrs prn ACETAMINOPHEN-HYDROCODONE 69430585821 No Longer Active Lakshmi Monroy VALTREX 1 GM TAB 1 PO BID VALACYCLOVIR HCL 14130176808 No Longer Active Lakshmi Monroy HYDROCHLOROTHIAZIDE 25 MG TAB 1 PO QD (on hold 11/16/10 due to hyponatremia and hypokalemia) HYDROCHLOROTHIAZIDE 46023473484 No Longer Active Lakshmi Monroy ARTHROTEC 50 50-200 MG-MCG TABS 1 PO daily DICLOFENAC -MISOPROSTOL 09931246466 No Longer Active Lakshmi Monroy PREDNISONE 20 MG TAB 2 pills at once for 2 days then 1 pill daily for 2 days PREDNISONE 66282964469 No Longer Active Lakshmianaid Monroy AUGMENTIN 500-125 MG TAB 1 PO BID AMOXICILLIN-POT CLAVULANATE 61418150891 No Longer Active Lakshmi FORTUNE NASAL SPRAY (DEXAMETHASONE, GENTAMICIN, SALINE) 2 puffs each nostril TID for [address] FORTUNE NASAL SPRAY ( DEXAMETHASONE, GENTAMICIN, SALINE) No Longer Active Lakshmi Monroy ZOCOR 40 MG TABS 1 PO daily SIMVASTATIN 86514897685 Active Susan Figueroa FISH OIL 1000 MG CAPS 1 PO QD OMEGA-3 FATTY ACIDS 42634882265 Active Susan Figueroa VITAMIN D 1000 UNIT TABS 1 PO Daily CHOLECALCIFEROL 73403615454 Active Lakshmi Monroy LOTRIMIN AF 1 % SOLN 2 drops as directed prn itching. CLOTRIMAZOLE 94819002454 Active Lakshmi Monroy ROBITUSSIN A-C 10-100 MG/5ML SYRUP 1 teaspoon PO Q 4-6 hr prn ROBITUSSIN A-C 10-100 MG/5ML SYRUP 26450637882 No Longer Active Lakshmi Monroy ATROVENT 0.06 % SOLN 2 puffs each nostril TID prn runny nose 2007 IPRATROPIUM BROMIDE 89650964395 No Longer Active Lakshmi Monroy ROBITUSSIN A-C 10-100 MG/5ML SYRUP 5cc PO Q 4-6 hr prn ROBITUSSIN A-C 10-100 MG/5ML SYRUP 93190725792 No Longer Active Lakshmi REARDON'Nelli NASAL SPRAY (DEXAMETHASONE, GENTAMICIN, SALINE) 2 puffs each nostril TID for [address] FORTUNE NASAL SPRAY ( DEXAMETHASONE, GENTAMICIN, SALINE) No Longer Active Lakshmi Monroy AUGMENTIN 500-125 MG TAB 1 PO BID AMOXICILLIN-POT CLAVULANATE 25205860875 No Longer Active Lakshmi Monroy TRIAMCINOLONE ACETONIDE 0.1 % OINT apply sparingly to left ear skin daily prn TRIAMCINOLONE ACETONIDE 64616115448 No Longer Active Lakshmi Monroy ZADITOR 0.025 % SOLN 1 gtt in OU BID KETOTIFEN FUMARATE 15427392132 Active Lakshmianaid Monroy LUTEIN 6 MG CAPS 1 po BID LUTEIN 28205071969 Active Lakshmianaid Monroy DIAZEPAM 5 MG TAB 1 PO QAM DIAZEPAM 25125429249 Active Susan Figueroa GAURAV 180 MG TABS 1 PO daily prn FEXOFENADINE HCL Active Susan Figueroa MECLIZINE HCL 25 MG TAB 1 PO Q6hrs prn dizziness MECLIZINE HCL 50609310709 Active Irving Galeano COQ-10 30 MG CAPS 1 po QD COENZYME Q10 30781427714 No Longer Active Lakshmi Estela Porfirio OSTEO COMPLEX CAPS 1 po QD MULTIPLE VITAMINS- MINERALS 67315385614 No Longer Active Lakshmi Estela Monroy VITAMIN C 1000 MG TABS 1 po QD prn ASCORBIC ACID 60807293951 Active Lakshmi Estela Porfirio ASPIRIN 81 MG TABS 1 PO QD ASPIRIN 94248496334 Active Lakshmianaid Monroy VITAMIN E 400 IU CAPS 1 po QD VITAMIN E 43712831118 No Longer Active Lakshmi Estela Monroy CALCIUM 500-100-40 CHEW 2 PO QAM CALCIUM-VITAMIN D-VITAMIN K 24093927267 Active Lakshmi Estela Monroy CALCIUM 500 MG TABS 1 po QD CALCIUM 10936611583 No Longer Active Lakshmi Estela Monroy MULTIVITAMINS TABS 1 po QD MULTIPLE VITAMIN 26680082617 Active Lakshmi Estela Monroy METOPROLOL TARTRATE 100 MG TABS 1 po QD METOPROLOL TARTRATE 49455884783 Active Susan Henry LISINOPRIL 10 MG TABS 1 po QD LISINOPRIL 59785085273 Active Susan Henry LESCOL 40 MG CAP 1 po QD FLUVASTATIN SODIUM 49302960626 No Longer Active Susan Henry Vital Signs [...] mg/dL Encounters Code Encounter Date Provider Facility CPT-33206 Ofc Vst, Est Level IV 17:40:50 CDT Lakshmi Monroy, DO, FACP CPT-45289 Ofc Vst, Est Level III 17:12:09 PRINT OPERATOR Lakshmi Monroy DO, FACP CPT-70362 Ofc Vst, Est Level III 12:57:14 CDT Lakshmianaid Monroy, DO, FACP CPT-21748 Ofc Vst, Est Level III 15:49:58 CDT Lakshmi Monroy DO, FACP CPT-43197 Ofc Vst, Est Level III 14:22:31 CDT Lakshmi Monroy, DO, FACP CPT-08449 Ofc Vst, Est Level III 15:31:21 PRINT OPERATOR Lakshmi Monroy, DO, FACP CPT-04123 Ofc Vst, Est Level III 14:41:12 CDT Lakshmi Monroy, DO, FACP CPT-61294 Ofc Vst, Est Level III 10:08:50 PRINT OPERATOR Lakshmi Monroy, DO, FACP CPT-02191 Ofc Vst, Est Level III 14:48:24 PRINT OPERATOR Lakshmi Aiken Monroy, DO, FACP CPT-30515 Ofc Vst, Est Level III 13:51:41 PRINT OPERATOR Lakshmi Aiken Monroy, DO, FACP CPT-07466 Ofc Vst, Est Level III 14:02:30 PRINT OPERATOR Lakshmi Aiken Monroy, DO, FACP CPT-53504 Ofc Vst, Est Level III 15:29:05 CDT Lakshmianaid Aiken Monroy, DO, FACP CPT-91579 Ofc Vst, Est Level IV 13:51:18 CDT Lakshmi Estela Aiken Monroy, DO, FACP CPT-82729 Ofc Vst, Est Level IV 15:07:40 CDT Lakshmi Estela Aiken Porfirio, DO, FACP CPT-58004 Ofc Vst, Est Level IV 14:34:41 CDT Lakshmianaid Aiken Porfirio, DO, FACP CPT-19361 Ofc Vst, Est Level IV 14:33:30 PRINT OPERATOR Lakshmi Aiken Monroy, DO, FACP CPT-91359 Ofc Vst, Est Level IV 11:09:55 CDT Lakshmi Aiken Porfirio, DO, FACP CPT-36195 Ofc Vst, Est Level IV 13:44:44 PRINT OPERATOR Lakshmi Aiken Monroy, DO, FACP CPT-54661 Ofc Vst, Est Level IV 14:33:25 CDT Lakshmi Aiken Porfirio, DO, FACP CPT-41427 Office Consult, Level IV 08:34:00 CDT Susan Henry Lakshmi Aiken Monroy, DO, FACP CPT-82635 Ofc Vst, Est Level IV 14:51:56 CDT Lakshmi Estela Aiken Porfirio, DO, FACP CPT-79438 Ofc Vst, Est Level IV 14:26:00 PRINT OPERATOR Lakshmi Monroy, DO, FACP CPT-09771 Ofc Vst, Est Level IV 14:05:51 CDT Lakshmi Monroy, DO, FACP CPT-64508 Ofc Vst, Est Level IV 10:24:07 CDT Lakshmi Estela Porfirio Monroy, DO, FACP CPT-36218 Ofc Vst, Est Level III 15:06:04 PRINT OPERATOR Lakshmi Monroy, DO, FACP CPT-87638 Ofc Vst, Est Level IV 13:53:46 PRINT OPERATOR Lakshmi Monroy, DO, FACP CPT-03050 Ofc Vst, Est Level IV 13:58:24 CDT Lakshmi Estela Porfirio Monroy, DO, FACP CPT-92958 Ofc Vst, Est Level IV 13:56:[address] [facility] [place] CPT-50710 Ofc Vst, Est Level IV 14:25:47 PRINT [address]PERATOR [address] [facility] [place] CPT-14299 Ofc Vst, Est Level IV 10:19:[address] [facility] [place] CPT-02387 Ofc Vst, Est Level IV 15:24:[address] [facility] [place] CPT-18174 Ofc Vst, Est Level IV 15:25:43 PRINT OPERATOR [address] [facility] [place] CPT-83074 Ofc Vst, Est Level IV 14:05:37 PRINT [address]PERATOR [address] [facility] [place] CPT-40745 Ofc Vst, Est Level IV 14:20:[address] [facility] [place] CPT-69734 Ofc Vst, Est Level IV 08:27:24 CDT Lakshmi Monroy [facility] [place] CPT-33042 Ofc Vst, New Level III 16:27:18 PRINT OPERATOR Lakshmi Monroy [facility] [place] Procedures Code Procedure Name Date Entry Date Standard Description CPT-G0439 Medicare Annual Wellness Visit 09:55:52 CDT CPT-G8443 E-Prescribing Medication Sent 14:22:31 CDT CPT-G8445 E-Prescribing Not sent due to no medication given 15:31: 21 PRINT OPERATOR CPT-G8443 E-Prescribing Medication Sent 14:41:12 CDT CPT-G8445 E-Prescribing Not sent due to no medication given 16:05: 09 CDT CPT-G0439 Medicare Annual Wellness Visit 16:05:09 CDT CPT-G8443 E-Prescribing Medication Sent 10:08:50 PRINT OPERATOR CPT-G8443 E-Prescribing Medication Sent 14:48:24 PRINT OPERATOR CPT-G8446 E-Prescribing not done due to controlled substance 13:51 :41 PRINT OPERATOR CPT-G8445 E-Prescribing Not sent due to no medication given 14:02: 30 PRINT OPERATOR CPT-G0439 Medicare Annual Wellness Visit 13:36:51 CDT CPT-G0439 Medicare Annual Wellness Visit 14:31:23 PRINT OPERATOR CPT-8445 E-Prescribing Not sent due to no medication given 09:54: 33 CDT CPT-G0008 Administration Influenza Vaccine 14:26:00 PRINT OPERATOR CPT-53167 Influenza Vaccine 14:26:00 PRINT OPERATOR CPT-74273 Injection, Pneumovax 13:53:46 PRINT OPERATOR CPT-16210 Influenza Vaccine 13:53:46 PRINT OPERATOR CPT-G0008 Administration Influenza Vaccine 13:53:46 PRINT OPERATOR
[2017-10-24] MEDS: LACTATED RINGERS 1,000 ML IV PRN ×2 (10:25→12:15)
--- OUTSIDE RECORDS SUMMARY | 2017-10-24 10:25 | XMS REPORT | Clinical Summary ---
Author Author User, RADHA Organization [facility] [place] Address Unknown Phone Unavailable Allergies, Adverse Reactions, [...] TO AFFTECTED AREAS DAILY SPARINGLY TRIAMCINOLONE ACETONIDE 47517951524 Active Lakshmi Monroy ACLOVATE 0.05 % CREA apply to affected area on ear sparingly once daily prn ALCLOMETASONE DIPROPIONATE 22588963755 No Longer Active Susan FORTUNE NASAL SPRAY (DEXAMETHASONE, GENTAMICIN, SALINE) 2 puffs each nostril TID for [address] FORTUNE NASAL SPRAY ( DEXAMETHASONE, GENTAMICIN, SALINE) No Longer Active Lakshmi Monroy LASIX 20 MG TAB 1 PO daily prn swelling FUROSEMIDE 24726737170 Active Lakshmi Monroy ULTRAM 50 MG TAB 1 PO TID prn TRAMADOL HCL 44905328410 Active Lakshmi Monroy KLOR-CON M20 20 MEQ CR-TABS 1 po daily POTASSIUM CHLORIDE HALINA CR 76112501684 Active Susan Figueroa ZETIA 10 MG TABS 1 PO daily EZETIMIBE 33992962191 No Longer Active Lakshmi Monroy NORVASC 5 MG TAB 1 PO QD AMLODIPINE BESYLATE 92043536305 Active Susan Figueroa ULTRAM 50 MG TAB 1 PO TID prn TRAMADOL HCL 29555724219 No Longer Active Lakshmi Monroy SYNTHROID 75 MCG TABS 1 PO daily LEVOTHYROXINE SODIUM 32658130811 Active Susan FORTUNE NASAL SPRAY (DEXAMETHASONE, GENTAMICIN, SALINE) 2 puffs each nostril TID for [address] FORTUNE NASAL SPRAY ( DEXAMETHASONE, GENTAMICIN, SALINE) No Longer Active Lakshmi Monroy PREDNISONE 20 MG TAB 2 pills at once for 5 days then 1 pill daily for 5 days PREDNISONE 36879845808 No Longer Active Lakshmi Monroy ATROVENT 0.06 % SOLN 2 puffs each nostril TID for 7 days IPRATROPIUM BROMIDE 81784790566 No Longer Active Lakshmi Monroy PREDNISONE 20 MG TAB 2 pills at once for 3 days then 1 pill daily for 3 days PREDNISONE 31479426333 No Longer Active Lakshmi Estela Monroy PREDNISONE 20 MG TAB 2 pills at once for 2 days then 1 pill daily for 2 days PREDNISONE 50385035628 No Longer Active Lakshmi Estela Monroy AUGMENTIN 500-125 MG TAB 1 PO BID AMOXICILLIN-POT CLAVULANATE 25855760359 No Longer Active Lakshmi REARDON'S NASAL SPRAY (DEXAMETHASONE, GENTAMICIN, SALINE) 2 puffs each nostril TID for [address] FORTUNE NASAL SPRAY ( DEXAMETHASONE, GENTAMICIN, SALINE) No Longer Active Lakshmi Monroy LORTAB 5 5-500 MG TABS 1 to 2 PO Q6hrs prn ACETAMINOPHEN-HYDROCODONE 04494370643 No Longer Active Lakshmi Monroy VALTREX 1 GM TAB 1 PO BID VALACYCLOVIR HCL 10142685440 No Longer Active Lakshmi Monroy HYDROCHLOROTHIAZIDE 25 MG TAB 1 PO QD (on hold 11/16/10 due to hyponatremia and hypokalemia) HYDROCHLOROTHIAZIDE 93085622840 No Longer Active Lakshmi Monroy ARTHROTEC 50 50-200 MG-MCG TABS 1 PO daily DICLOFENAC -MISOPROSTOL 77110171038 No Longer Active Lakshmi Monroy PREDNISONE 20 MG TAB 2 pills at once for 2 days then 1 pill daily for 2 days PREDNISONE 20876739151 No Longer Active Lakshmianaid Monroy AUGMENTIN 500-125 MG TAB 1 PO BID AMOXICILLIN-POT CLAVULANATE 53987657417 No Longer Active Lakshmi FORTUNE NASAL SPRAY (DEXAMETHASONE, GENTAMICIN, SALINE) 2 puffs each nostril TID for [address] FORTUNE NASAL SPRAY ( DEXAMETHASONE, GENTAMICIN, SALINE) No Longer Active Lakshmi Monroy ZOCOR 40 MG TABS 1 PO daily SIMVASTATIN 20172607205 Active Susan Fgiueroa FISH OIL 1000 MG CAPS 1 PO QD OMEGA-3 FATTY ACIDS 82749073786 Active Susan Figueroa VITAMIN D 1000 UNIT TABS 1 PO Daily CHOLECALCIFEROL 44634222639 Active Lakshmi Monroy LOTRIMIN AF 1 % SOLN 2 drops as directed prn itching. CLOTRIMAZOLE 96169300245 Active Lakshmi Monroy ROBITUSSIN A-C 10-100 MG/5ML SYRUP 1 teaspoon PO Q 4-6 hr prn ROBITUSSIN A-C 10-100 MG/5ML SYRUP 85470738738 No Longer Active Lakshmi Monroy ATROVENT 0.06 % SOLN 2 puffs each nostril TID prn runny nose 2007 IPRATROPIUM BROMIDE 53942775314 No Longer Active Lakshmi Monroy ROBITUSSIN A-C 10-100 MG/5ML SYRUP 5cc PO Q 4-6 hr prn ROBITUSSIN A-C 10-100 MG/5ML SYRUP 90255479048 No Longer Active Lakshmi REARDON'Nelli NASAL SPRAY (DEXAMETHASONE, GENTAMICIN, SALINE) 2 puffs each nostril TID for [address] FORTUNE NASAL SPRAY ( DEXAMETHASONE, GENTAMICIN, SALINE) No Longer Active Lakshmi Monroy AUGMENTIN 500-125 MG TAB 1 PO BID AMOXICILLIN-POT CLAVULANATE 04217428330 No Longer Active Lakshmi Monroy TRIAMCINOLONE ACETONIDE 0.1 % OINT apply sparingly to left ear skin daily prn TRIAMCINOLONE ACETONIDE 45813052684 No Longer Active Lakshmi Monryo ZADITOR 0.025 % SOLN 1 gtt in OU BID KETOTIFEN FUMARATE 95236192821 Active Lakshmianaid Monroy LUTEIN 6 MG CAPS 1 po BID LUTEIN 40012304999 Active Lakshmianaid Monroy DIAZEPAM 5 MG TAB 1 PO QAM DIAZEPAM 18274511000 Active Susan Figueroa GAURAV 180 MG TABS 1 PO daily prn FEXOFENADINE HCL Active Susan Figueroa MECLIZINE HCL 25 MG TAB 1 PO Q6hrs prn dizziness MECLIZINE HCL 44869278424 Active Irving Galeano COQ-10 30 MG CAPS 1 po QD COENZYME Q10 56028686681 No Longer Active Lakshmi Estela Porfirio OSTEO COMPLEX CAPS 1 po QD MULTIPLE VITAMINS- MINERALS 33664216160 No Longer Active Lakshmi Estela Monroy VITAMIN C 1000 MG TABS 1 po QD prn ASCORBIC ACID 86496845025 Active Lakshmi Estela Porfirio ASPIRIN 81 MG TABS 1 PO QD ASPIRIN 76026957148 Active Lakshmianaid Monroy VITAMIN E 400 IU CAPS 1 po QD VITAMIN E 67186827410 No Longer Active Lakshmi Estela Monroy CALCIUM 500-100-40 CHEW 2 PO QAM CALCIUM-VITAMIN D-VITAMIN K 00739939458 Active Lakshmi Estela Monroy CALCIUM 500 MG TABS 1 po QD CALCIUM 01882533156 No Longer Active Lakshmi Estela Monroy MULTIVITAMINS TABS 1 po QD MULTIPLE VITAMIN 04461550574 Active Lakshmi Estela Monroy METOPROLOL TARTRATE 100 MG TABS 1 po QD METOPROLOL TARTRATE 67234436620 Active Susan Henry LISINOPRIL 10 MG TABS 1 po QD LISINOPRIL 09986494404 Active Susan Henry LESCOL 40 MG CAP 1 po QD FLUVASTATIN SODIUM 76383316066 No Longer Active Susan Henry Vital Signs [...] mg/dL Encounters Code Encounter Date Provider Facility CPT-81082 Ofc Vst, Est Level IV 17:40:50 CDT Lakshmi Monroy, DO, FACP CPT-30518 Ofc Vst, Est Level III 17:12:09 SUPERVISOR FRAME ASSEMBLY Lakshmi Monroy DO, FACP CPT-53414 Ofc Vst, Est Level III 12:57:14 CDT Lakshmianaid Monroy, DO, FACP CPT-08207 Ofc Vst, Est Level III 15:49:58 CDT Lakshmi Monroy DO, FACP CPT-38373 Ofc Vst, Est Level III 14:22:31 CDT Lakshmi Monroy, DO, FACP CPT-23739 Ofc Vst, Est Level III 15:31:21 SUPERVISOR FRAME ASSEMBLY Lakshmi Monroy, DO, FACP CPT-55382 Ofc Vst, Est Level III 14:41:12 CDT Lakshmi Monroy, DO, FACP CPT-42437 Ofc Vst, Est Level III 10:08:50 SUPERVISOR FRAME ASSEMBLY Lakshmi Monroy, DO, FACP CPT-93979 Ofc Vst, Est Level III 14:48:24 SUPERVISOR FRAME ASSEMBLY Lakshmi Aiken Monroy, DO, FACP CPT-74333 Ofc Vst, Est Level III 13:51:41 SUPERVISOR FRAME ASSEMBLY Lakshmi Aiken Monroy, DO, FACP CPT-68432 Ofc Vst, Est Level III 14:02:30 SUPERVISOR FRAME ASSEMBLY Lakshmi Aiken Monroy, DO, FACP CPT-25487 Ofc Vst, Est Level III 15:29:05 CDT Lakshmianaid Aiken Monroy, DO, FACP CPT-15623 Ofc Vst, Est Level IV 13:51:18 CDT Lakshmi Estela Aiken Monroy, DO, FACP CPT-88288 Ofc Vst, Est Level IV 15:07:40 CDT Lakshmi Estela Aiken Porfirio, DO, FACP CPT-35520 Ofc Vst, Est Level IV 14:34:41 CDT Lakshmianaid Aiken Porfirio, DO, FACP CPT-45598 Ofc Vst, Est Level IV 14:33:30 SUPERVISOR FRAME ASSEMBLY Lakshmi Aiken Monroy, DO, FACP CPT-98156 Ofc Vst, Est Level IV 11:09:55 CDT Lakshmi Aiken Porfirio, DO, FACP CPT-39293 Ofc Vst, Est Level IV 13:44:44 SUPERVISOR FRAME ASSEMBLY Lakshmi Aiken Monroy, DO, FACP CPT-96224 Ofc Vst, Est Level IV 14:33:25 CDT Lakshmi Aiken Porfirio, DO, FACP CPT-36987 Office Consult, Level IV 08:34:00 CDT Susan Henry Lakshmi Aiken Monroy, DO, FACP CPT-00524 Ofc Vst, Est Level IV 14:51:56 CDT Lakshmi Estela Aiken Porfirio, DO, FACP CPT-89730 Ofc Vst, Est Level IV 14:26:00 SUPERVISOR FRAME ASSEMBLY Lakshmi Monroy, DO, FACP CPT-99593 Ofc Vst, Est Level IV 14:05:51 CDT Lakshmi Monroy, DO, FACP CPT-57050 Ofc Vst, Est Level IV 10:24:07 CDT Lakshmi Estela Porfirio Monroy, DO, FACP CPT-19485 Ofc Vst, Est Level III 15:06:04 SUPERVISOR FRAME ASSEMBLY Lakshmi Monroy, DO, FACP CPT-24319 Ofc Vst, Est Level IV 13:53:46 SUPERVISOR FRAME ASSEMBLY Lakshmi Monroy, DO, FACP CPT-21371 Ofc Vst, Est Level IV 13:58:24 CDT Lakshmi Estela Porfirio Monroy, DO, FACP CPT-34147 Ofc Vst, Est Level IV 13:56:34 CDT Lakshmi Monroy [facility] [place] CPT-70749 Ofc Vst, Est Level IV 14:25:47 SUPERVISOR FRAME ASSEMBLY Lakshmi Monroy [facility] [place] CPT-00234 Ofc Vst, Est Level IV 10:19:35 CDT Lakshmi Monroy [facility] [place] CPT-09406 Ofc Vst, Est Level IV 15:24:38 CDT Lakshmi Monroy [facility] [place] CPT-49726 Ofc Vst, Est Level IV 15:25:43 SUPERVISOR FRAME ASSEMBLY Lakshmi Monroy [facility] [place] CPT-54375 Ofc Vst, Est Level IV 14:05:37 SUPERVISOR FRAME ASSEMBLY Lakshmi Monroy [facility] [place] CPT-04906 Ofc Vst, Est Level IV 14:20:46 CDT Lakshmi Monroy [facility] [place] CPT-43986 Ofc Vst, Est Level IV 08:27:24 CDT Lakshmi Monroy [facility] [place] CPT-72921 Ofc Vst, New Level III 16:27:18 SUPERVISOR FRAME ASSEMBLY Lakshmi Monroy [facility] [place] Procedures Code Procedure Name Date Entry Date Standard Description CPT-G0439 Medicare Annual Wellness Visit 09:55:52 CDT CPT-G8443 E-Prescribing Medication Sent 14:22:31 CDT CPT-G8445 E-Prescribing Not sent due to no medication given 15:31: 21 SUPERVISOR FRAME ASSEMBLY CPT-G8443 E-Prescribing Medication Sent 14:41:12 CDT CPT-G8445 E-Prescribing Not sent due to no medication given 16:05: 09 CDT CPT-G0439 Medicare Annual Wellness Visit 16:05:09 CDT CPT-G8443 E-Prescribing Medication Sent 10:08:50 SUPERVISOR FRAME ASSEMBLY CPT-G8443 E-Prescribing Medication Sent 14:48:24 SUPERVISOR FRAME ASSEMBLY CPT-G8446 E-Prescribing not done due to controlled substance 13:51 :41 SUPERVISOR FRAME ASSEMBLY CPT-G8445 E-Prescribing Not sent due to no medication given 14:02: 30 SUPERVISOR FRAME ASSEMBLY CPT-G0439 Medicare Annual Wellness Visit 13:36:51 CDT CPT-G0439 Medicare Annual Wellness Visit 14:31:23 SUPERVISOR FRAME ASSEMBLY CPT-8445 E-Prescribing Not sent due to no medication given 09:54: 33 CDT CPT-G0008 Administration Influenza Vaccine 14:26:00 SUPERVISOR FRAME ASSEMBLY CPT-17584 Influenza Vaccine 14:26:00 SUPERVISOR FRAME ASSEMBLY CPT-07161 Injection, Pneumovax 13:53:46 SUPERVISOR FRAME ASSEMBLY CPT-35576 Influenza Vaccine 13:53:46 SUPERVISOR FRAME ASSEMBLY CPT-G0008 Administration Influenza Vaccine 13:53:46 SUPERVISOR FRAME ASSEMBLY
--- OUTSIDE RECORDS SUMMARY | 2017-10-24 10:26 | XMS REPORT | Clinical Summary ---
Author Author User, RADHA Organization [facility] [place] Address Unknown Phone Unavailable Allergies, Adverse Reactions, [...] TO AFFTECTED AREAS DAILY SPARINGLY TRIAMCINOLONE ACETONIDE 77887574386 Active Lakshmi Monroy ACLOVATE 0.05 % CREA apply to affected area on ear sparingly once daily prn ALCLOMETASONE DIPROPIONATE 17790239502 No Longer Active Susan FORTUNE NASAL SPRAY (DEXAMETHASONE, GENTAMICIN, SALINE) 2 puffs each nostril TID for [address] FORTUNE NASAL SPRAY ( DEXAMETHASONE, GENTAMICIN, SALINE) No Longer Active Lakshmi Monroy LASIX 20 MG TAB 1 PO daily prn swelling FUROSEMIDE 89066485256 Active Lakshmi Monroy ULTRAM 50 MG TAB 1 PO TID prn TRAMADOL HCL 49186445017 Active Lakshmi Monroy KLOR-CON M20 20 MEQ CR-TABS 1 po daily POTASSIUM CHLORIDE HALINA CR 32665154159 Active Susan Figueroa ZETIA 10 MG TABS 1 PO daily EZETIMIBE 07337660530 No Longer Active Lakshmi Monroy NORVASC 5 MG TAB 1 PO QD AMLODIPINE BESYLATE 78872885674 Active Susan Figueroa ULTRAM 50 MG TAB 1 PO TID prn TRAMADOL HCL 95142703181 No Longer Active Lakshmi Monroy SYNTHROID 75 MCG TABS 1 PO daily LEVOTHYROXINE SODIUM 20523965611 Active Susan FORTUNE NASAL SPRAY (DEXAMETHASONE, GENTAMICIN, SALINE) 2 puffs each nostril TID for [address] FORTUNE NASAL SPRAY ( DEXAMETHASONE, GENTAMICIN, SALINE) No Longer Active Lakshmi Monroy PREDNISONE 20 MG TAB 2 pills at once for 5 days then 1 pill daily for 5 days PREDNISONE 29754519116 No Longer Active Lakshmi Monroy ATROVENT 0.06 % SOLN 2 puffs each nostril TID for 7 days IPRATROPIUM BROMIDE 82164996040 No Longer Active Lakshmi Monroy PREDNISONE 20 MG TAB 2 pills at once for 3 days then 1 pill daily for 3 days PREDNISONE 33766266651 No Longer Active Lakshmi Estela Monroy PREDNISONE 20 MG TAB 2 pills at once for 2 days then 1 pill daily for 2 days PREDNISONE 25626101566 No Longer Active Lakshmi Estela Monroy AUGMENTIN 500-125 MG TAB 1 PO BID AMOXICILLIN-POT CLAVULANATE 55502580324 No Longer Active Lakshmi REARDON'S NASAL SPRAY (DEXAMETHASONE, GENTAMICIN, SALINE) 2 puffs each nostril TID for [address] FORTUNE NASAL SPRAY ( DEXAMETHASONE, GENTAMICIN, SALINE) No Longer Active Lakshmi Monroy LORTAB 5 5-500 MG TABS 1 to 2 PO Q6hrs prn ACETAMINOPHEN-HYDROCODONE 18823333470 No Longer Active Lakshmi Monroy VALTREX 1 GM TAB 1 PO BID VALACYCLOVIR HCL 06855353851 No Longer Active Lakshmi Monroy HYDROCHLOROTHIAZIDE 25 MG TAB 1 PO QD (on hold 11/16/10 due to hyponatremia and hypokalemia) HYDROCHLOROTHIAZIDE 57855913276 No Longer Active Lakshmi Monroy ARTHROTEC 50 50-200 MG-MCG TABS 1 PO daily DICLOFENAC -MISOPROSTOL 83386132220 No Longer Active Lakshmi Monroy PREDNISONE 20 MG TAB 2 pills at once for 2 days then 1 pill daily for 2 days PREDNISONE 98388655682 No Longer Active Lakshmianaid Monroy AUGMENTIN 500-125 MG TAB 1 PO BID AMOXICILLIN-POT CLAVULANATE 62596296704 No Longer Active Lakshmi FORTUNE NASAL SPRAY (DEXAMETHASONE, GENTAMICIN, SALINE) 2 puffs each nostril TID for [address] FORTUNE NASAL SPRAY ( DEXAMETHASONE, GENTAMICIN, SALINE) No Longer Active Lakshmi Monroy ZOCOR 40 MG TABS 1 PO daily SIMVASTATIN 56695483783 Active Susan Figueroa FISH OIL 1000 MG CAPS 1 PO QD OMEGA-3 FATTY ACIDS 44321159720 Active Susan Figueroa VITAMIN D 1000 UNIT TABS 1 PO Daily CHOLECALCIFEROL 27865175508 Active Lakshmi Monroy LOTRIMIN AF 1 % SOLN 2 drops as directed prn itching. CLOTRIMAZOLE 32815030322 Active Lakshmi Monroy ROBITUSSIN A-C 10-100 MG/5ML SYRUP 1 teaspoon PO Q 4-6 hr prn ROBITUSSIN A-C 10-100 MG/5ML SYRUP 72726662746 No Longer Active Lakshmi Monroy ATROVENT 0.06 % SOLN 2 puffs each nostril TID prn runny nose 2007 IPRATROPIUM BROMIDE 81795358545 No Longer Active Lakshmi Monroy ROBITUSSIN A-C 10-100 MG/5ML SYRUP 5cc PO Q 4-6 hr prn ROBITUSSIN A-C 10-100 MG/5ML SYRUP 39635079131 No Longer Active Lakshmi REARDON'Nelli NASAL SPRAY (DEXAMETHASONE, GENTAMICIN, SALINE) 2 puffs each nostril TID for [address] FORTUNE NASAL SPRAY ( DEXAMETHASONE, GENTAMICIN, SALINE) No Longer Active Lakshmi Monroy AUGMENTIN 500-125 MG TAB 1 PO BID AMOXICILLIN-POT CLAVULANATE 41881874983 No Longer Active Lakshmi Monroy TRIAMCINOLONE ACETONIDE 0.1 % OINT apply sparingly to left ear skin daily prn TRIAMCINOLONE ACETONIDE 86009343477 No Longer Active Lakshmi Monroy ZADITOR 0.025 % SOLN 1 gtt in OU BID KETOTIFEN FUMARATE 59652133557 Active Lakshmianaid Monroy LUTEIN 6 MG CAPS 1 po BID LUTEIN 05324947837 Active Lakshmianaid Monroy DIAZEPAM 5 MG TAB 1 PO QAM DIAZEPAM 97019515881 Active Susan Figueroa GAURAV 180 MG TABS 1 PO daily prn FEXOFENADINE HCL Active Susan Figueroa MECLIZINE HCL 25 MG TAB 1 PO Q6hrs prn dizziness MECLIZINE HCL 03010937371 Active Irving Galeano COQ-10 30 MG CAPS 1 po QD COENZYME Q10 56506512569 No Longer Active Lakshmi Estela Porfirio OSTEO COMPLEX CAPS 1 po QD MULTIPLE VITAMINS- MINERALS 29272505858 No Longer Active Lakshmi Estela Monroy VITAMIN C 1000 MG TABS 1 po QD prn ASCORBIC ACID 54580998645 Active Lakshmi Estela Porfirio ASPIRIN 81 MG TABS 1 PO QD ASPIRIN 63479539766 Active Lakshmianaid Monroy VITAMIN E 400 IU CAPS 1 po QD VITAMIN E 52273806463 No Longer Active Lakshmi Estela Monroy CALCIUM 500-100-40 CHEW 2 PO QAM CALCIUM-VITAMIN D-VITAMIN K 65670699648 Active Lakshmi Estela Monroy CALCIUM 500 MG TABS 1 po QD CALCIUM 78224585835 No Longer Active Lakshmi Estela Monroy MULTIVITAMINS TABS 1 po QD MULTIPLE VITAMIN 89827343924 Active Lakshmi Estela Monroy METOPROLOL TARTRATE 100 MG TABS 1 po QD METOPROLOL TARTRATE 42771383357 Active Susan Henry LISINOPRIL 10 MG TABS 1 po QD LISINOPRIL 73017765763 Active Susan Henry LESCOL 40 MG CAP 1 po QD FLUVASTATIN SODIUM 89064125518 No Longer Active Susan Henry Vital Signs [...] mg/dL Encounters Code Encounter Date Provider Facility CPT-53894 Ofc Vst, Est Level IV 17:40:50 CDT Lakshmi Monroy, DO, FACP CPT-87333 Ofc Vst, Est Level III 17:12:09 PROPERTY TECHNICIAN Lakshmi Monroy DO, FACP CPT-58804 Ofc Vst, Est Level III 12:57:14 CDT Lakshmianaid Monroy, DO, FACP CPT-87430 Ofc Vst, Est Level III 15:49:58 CDT Lakshmi Monroy DO, FACP CPT-52137 Ofc Vst, Est Level III 14:22:31 CDT Lakshmi Monroy, DO, FACP CPT-44490 Ofc Vst, Est Level III 15:31:21 PROPERTY TECHNICIAN Lakshmi Monroy, DO, FACP CPT-34031 Ofc Vst, Est Level III 14:41:12 CDT Lakshmi Monroy, DO, FACP CPT-71932 Ofc Vst, Est Level III 10:08:50 PROPERTY TECHNICIAN Lakshmi Monroy, DO, FACP CPT-34387 Ofc Vst, Est Level III 14:48:24 PROPERTY TECHNICIAN Lakshmi Aiken Monroy, DO, FACP CPT-24239 Ofc Vst, Est Level III 13:51:41 PROPERTY TECHNICIAN Lakshmi Aiken Monroy, DO, FACP CPT-94654 Ofc Vst, Est Level III 14:02:30 PROPERTY TECHNICIAN Lakshmi Aiken Monroy, DO, FACP CPT-79289 Ofc Vst, Est Level III 15:29:05 CDT Lakshmianaid Aiken Monroy, DO, FACP CPT-54269 Ofc Vst, Est Level IV 13:51:18 CDT Lakshmi Estlea Aiken Monroy, DO, FACP CPT-15200 Ofc Vst, Est Level IV 15:07:40 CDT Lakshmi Estela Aiken Porfirio, DO, FACP CPT-89792 Ofc Vst, Est Level IV 14:34:41 CDT Lakshmianaid Aiken Porfirio, DO, FACP CPT-06535 Ofc Vst, Est Level IV 14:33:30 PROPERTY TECHNICIAN Lakshmi Aiken Monroy, DO, FACP CPT-95186 Ofc Vst, Est Level IV 11:09:55 CDT Lakshmi Aiken Porfirio, DO, FACP CPT-72547 Ofc Vst, Est Level IV 13:44:44 PROPERTY TECHNICIAN Lakshmi Aiken Monroy, DO, FACP CPT-34069 Ofc Vst, Est Level IV 14:33:25 CDT Lakshmi Aiken Porfirio, DO, FACP CPT-91806 Office Consult, Level IV 08:34:00 CDT Susan Henry Lakshmi Aiken Monroy, DO, FACP CPT-72335 Ofc Vst, Est Level IV 14:51:56 CDT Lakshmi Estela Aiken Porfirio, DO, FACP CPT-13996 Ofc Vst, Est Level IV 14:26:00 PROPERTY TECHNICIAN Lakshmi Monroy, DO, FACP CPT-99554 Ofc Vst, Est Level IV 14:05:51 CDT Lakshmi Monroy, DO, FACP CPT-76456 Ofc Vst, Est Level IV 10:24:07 CDT Lakshmi Estela Porfirio Monroy, DO, FACP CPT-38683 Ofc Vst, Est Level III 15:06:04 PROPERTY TECHNICIAN Lakshmi Monroy, DO, FACP CPT-66872 Ofc Vst, Est Level IV 13:53:46 PROPERTY TECHNICIAN Lakshmi Monroy, DO, FACP CPT-24405 Ofc Vst, Est Level IV 13:58:24 CDT Lakshmi Estela Porfirio Monroy, DO, FACP CPT-96598 Ofc Vst, Est Level IV 13:56:34 CDT Lakshmi [facility] [place] CPT-56669 Ofc Vst, Est Level IV 14:25:47 PROPERTY TECHNICIAN Lakshmi Monroy [facility] [place] CPT-79296 Ofc Vst, Est Level IV 10:19:35 CDT Lakshmi Monroy [facility] [place] CPT-06936 Ofc Vst, Est Level IV 15:24:38 CDT Lakshmi Monroy [facility] [place] CPT-70985 Ofc Vst, Est Level IV 15:25:43 PROPERTY TECHNICIAN Lakshmi Monroy [facility] [place] CPT-34793 Ofc Vst, Est Level IV 14:05:37 PROPERTY TECHNICIAN Lakshmi Monroy [facility] [place] CPT-98992 Ofc Vst, Est Level IV 14:20:46 CDT Lakshmi Monroy [facility] [place] CPT-99497 Ofc Vst, Est Level IV 08:27:24 CDT Lakshmi Monroy [facility] [place] CPT-48704 Ofc Vst, New Level III 16:27:18 PROPERTY TECHNICIAN Lakshmi Monroy [facility] [place] Procedures Code Procedure Name Date Entry Date Standard Description CPT-G0439 Medicare Annual Wellness Visit 09:55:52 CDT CPT-G8443 E-Prescribing Medication Sent 14:22:31 CDT CPT-G8445 E-Prescribing Not sent due to no medication given 15:31: 21 PROPERTY TECHNICIAN CPT-G8443 E-Prescribing Medication Sent 14:41:12 CDT CPT-G8445 E-Prescribing Not sent due to no medication given 16:05: 09 CDT CPT-G0439 Medicare Annual Wellness Visit 16:05:09 CDT CPT-G8443 E-Prescribing Medication Sent 10:08:50 PROPERTY TECHNICIAN CPT-G8443 E-Prescribing Medication Sent 14:48:24 PROPERTY TECHNICIAN CPT-G8446 E-Prescribing not done due to controlled substance 13:51 :41 PROPERTY TECHNICIAN CPT-G8445 E-Prescribing Not sent due to no medication given 14:02: 30 PROPERTY TECHNICIAN CPT-G0439 Medicare Annual Wellness Visit 13:36:51 CDT CPT-G0439 Medicare Annual Wellness Visit 14:31:23 PROPERTY TECHNICIAN CPT-8445 E-Prescribing Not sent due to no medication given 09:54: 33 CDT CPT-G0008 Administration Influenza Vaccine 14:26:00 PROPERTY TECHNICIAN CPT-89578 Influenza Vaccine 14:26:00 PROPERTY TECHNICIAN CPT-28540 Injection, Pneumovax 13:53:46 PROPERTY TECHNICIAN CPT-93358 Influenza Vaccine 13:53:46 PROPERTY TECHNICIAN CPT-G0008 Administration Influenza Vaccine 13:53:46 PROPERTY TECHNICIAN
--- OUTSIDE RECORDS SUMMARY | 2017-10-24 10:26 | XMS REPORT | Clinical Summary ---
Author Author User, RADHA Organization [facility] [place] Address Unknown Phone Unavailable Allergies, Adverse Reactions, [...] TO AFFTECTED AREAS DAILY SPARINGLY TRIAMCINOLONE ACETONIDE 53497440541 Active Lakshmi Monroy ACLOVATE 0.05 % CREA apply to affected area on ear sparingly once daily prn ALCLOMETASONE DIPROPIONATE 73771485240 No Longer Active Susan FORTUNE NASAL SPRAY (DEXAMETHASONE, GENTAMICIN, SALINE) 2 puffs each nostril TID for [address] FORTUNE NASAL SPRAY ( DEXAMETHASONE, GENTAMICIN, SALINE) No Longer Active Lakshmi Monroy LASIX 20 MG TAB 1 PO daily prn swelling FUROSEMIDE 70394617973 Active Lakshmi Monroy ULTRAM 50 MG TAB 1 PO TID prn TRAMADOL HCL 65858850277 Active Lakshmi Monroy KLOR-CON M20 20 MEQ CR-TABS 1 po daily POTASSIUM CHLORIDE HALINA CR 12283643497 Active Susan Figueroa ZETIA 10 MG TABS 1 PO daily EZETIMIBE 55812164827 No Longer Active Lakshmi Monroy NORVASC 5 MG TAB 1 PO QD AMLODIPINE BESYLATE 97340791632 Active Susan Figueroa ULTRAM 50 MG TAB 1 PO TID prn TRAMADOL HCL 78666062336 No Longer Active Lakshmi Monroy SYNTHROID 75 MCG TABS 1 PO daily LEVOTHYROXINE SODIUM 31617185537 Active Susan FORTUNE NASAL SPRAY (DEXAMETHASONE, GENTAMICIN, SALINE) 2 puffs each nostril TID for [address] FORTUNE NASAL SPRAY ( DEXAMETHASONE, GENTAMICIN, SALINE) No Longer Active Lakshmi Monroy PREDNISONE 20 MG TAB 2 pills at once for 5 days then 1 pill daily for 5 days PREDNISONE 66738655691 No Longer Active Lakshmi Monroy ATROVENT 0.06 % SOLN 2 puffs each nostril TID for 7 days IPRATROPIUM BROMIDE 14861945394 No Longer Active Lakshmi Monroy PREDNISONE 20 MG TAB 2 pills at once for 3 days then 1 pill daily for 3 days PREDNISONE 50927955055 No Longer Active Lakshmi Estela Monroy PREDNISONE 20 MG TAB 2 pills at once for 2 days then 1 pill daily for 2 days PREDNISONE 30222796832 No Longer Active Lakshmi Estela Monroy AUGMENTIN 500-125 MG TAB 1 PO BID AMOXICILLIN-POT CLAVULANATE 89664415988 No Longer Active Lakshmi REARDON'S NASAL SPRAY (DEXAMETHASONE, GENTAMICIN, SALINE) 2 puffs each nostril TID for [address] FORTUNE NASAL SPRAY ( DEXAMETHASONE, GENTAMICIN, SALINE) No Longer Active Lakshmi Monroy LORTAB 5 5-500 MG TABS 1 to 2 PO Q6hrs prn ACETAMINOPHEN-HYDROCODONE 60878106674 No Longer Active Lakshmi Monroy VALTREX 1 GM TAB 1 PO BID VALACYCLOVIR HCL 35587882255 No Longer Active Lakshmi Monroy HYDROCHLOROTHIAZIDE 25 MG TAB 1 PO QD (on hold 11/16/10 due to hyponatremia and hypokalemia) HYDROCHLOROTHIAZIDE 95426784718 No Longer Active Lakshmi Monroy ARTHROTEC 50 50-200 MG-MCG TABS 1 PO daily DICLOFENAC -MISOPROSTOL 16370749742 No Longer Active Lakshmi Monroy PREDNISONE 20 MG TAB 2 pills at once for 2 days then 1 pill daily for 2 days PREDNISONE 01881232853 No Longer Active Lakshmianaid Monroy AUGMENTIN 500-125 MG TAB 1 PO BID AMOXICILLIN-POT CLAVULANATE 24151751545 No Longer Active Lakshmi FORTUNE NASAL SPRAY (DEXAMETHASONE, GENTAMICIN, SALINE) 2 puffs each nostril TID for [address] FORTUNE NASAL SPRAY ( DEXAMETHASONE, GENTAMICIN, SALINE) No Longer Active Lakshmi Monroy ZOCOR 40 MG TABS 1 PO daily SIMVASTATIN 34584492987 Active Susan Figueroa FISH OIL 1000 MG CAPS 1 PO QD OMEGA-3 FATTY ACIDS 98784456008 Active Susan Figueroa VITAMIN D 1000 UNIT TABS 1 PO Daily CHOLECALCIFEROL 34455654981 Active Lakshmi Monroy LOTRIMIN AF 1 % SOLN 2 drops as directed prn itching. CLOTRIMAZOLE 40862591310 Active Lakshmi Monroy ROBITUSSIN A-C 10-100 MG/5ML SYRUP 1 teaspoon PO Q 4-6 hr prn ROBITUSSIN A-C 10-100 MG/5ML SYRUP 67163092809 No Longer Active Lakshmi Monroy ATROVENT 0.06 % SOLN 2 puffs each nostril TID prn runny nose 2007 IPRATROPIUM BROMIDE 07679782371 No Longer Active Lakshmi Monroy ROBITUSSIN A-C 10-100 MG/5ML SYRUP 5cc PO Q 4-6 hr prn ROBITUSSIN A-C 10-100 MG/5ML SYRUP 31847173508 No Longer Active Lakshmi REARDON'Nelli NASAL SPRAY (DEXAMETHASONE, GENTAMICIN, SALINE) 2 puffs each nostril TID for [address] FORTUNE NASAL SPRAY ( DEXAMETHASONE, GENTAMICIN, SALINE) No Longer Active Laksmhi Monroy AUGMENTIN 500-125 MG TAB 1 PO BID AMOXICILLIN-POT CLAVULANATE 20960675737 No Longer Active Lakshmi Monroy TRIAMCINOLONE ACETONIDE 0.1 % OINT apply sparingly to left ear skin daily prn TRIAMCINOLONE ACETONIDE 26808916231 No Longer Active Lakshmi Monroy ZADITOR 0.025 % SOLN 1 gtt in OU BID KETOTIFEN FUMARATE 45881249116 Active Lakshmianaid Monroy LUTEIN 6 MG CAPS 1 po BID LUTEIN 05915702730 Active Lakshmianaid Monroy DIAZEPAM 5 MG TAB 1 PO QAM DIAZEPAM 02370701984 Active Susan Figueroa GAURAV 180 MG TABS 1 PO daily prn FEXOFENADINE HCL Active Susan Figueroa MECLIZINE HCL 25 MG TAB 1 PO Q6hrs prn dizziness MECLIZINE HCL 00042536307 Active Irving Galeano COQ-10 30 MG CAPS 1 po QD COENZYME Q10 38523085488 No Longer Active Lakshmi Estela Porfirio OSTEO COMPLEX CAPS 1 po QD MULTIPLE VITAMINS- MINERALS 38950977241 No Longer Active Lakshmi Estela Monroy VITAMIN C 1000 MG TABS 1 po QD prn ASCORBIC ACID 61460459467 Active Lakshmi Estela Porfirio ASPIRIN 81 MG TABS 1 PO QD ASPIRIN 06907784595 Active Lakshmianaid Monroy VITAMIN E 400 IU CAPS 1 po QD VITAMIN E 80705552659 No Longer Active Lakshmi Estela Monroy CALCIUM 500-100-40 CHEW 2 PO QAM CALCIUM-VITAMIN D-VITAMIN K 65148325756 Active Lakshmi Estela Monroy CALCIUM 500 MG TABS 1 po QD CALCIUM 15912797669 No Longer Active Lakshmi Estela Monroy MULTIVITAMINS TABS 1 po QD MULTIPLE VITAMIN 92916269967 Active Lakshmi Estela Monroy METOPROLOL TARTRATE 100 MG TABS 1 po QD METOPROLOL TARTRATE 99031624330 Active Susan Henry LISINOPRIL 10 MG TABS 1 po QD LISINOPRIL 29534986932 Active Susan Henry LESCOL 40 MG CAP 1 po QD FLUVASTATIN SODIUM 50494387624 No Longer Active Susan Henry Vital Signs [...] mg/dL Encounters Code Encounter Date Provider Facility CPT-21518 Ofc Vst, Est Level IV 17:40:50 CDT Lakshmi Monroy, DO, FACP CPT-18334 Ofc Vst, Est Level III 17:12:09 CERTIFIED PHLEBOTOMIST Lakshmi Monroy DO, FACP CPT-59617 Ofc Vst, Est Level III 12:57:14 CDT Lakshmianaid Monroy, DO, FACP CPT-95708 Ofc Vst, Est Level III 15:49:58 CDT Lakshmi Monroy DO, FACP CPT-60165 Ofc Vst, Est Level III 14:22:31 CDT Lakshmi Monroy, DO, FACP CPT-87831 Ofc Vst, Est Level III 15:31:21 CERTIFIED PHLEBOTOMIST Lakshmi Monroy, DO, FACP CPT-85520 Ofc Vst, Est Level III 14:41:12 CDT Lakshmi Monroy, DO, FACP CPT-07834 Ofc Vst, Est Level III 10:08:50 CERTIFIED PHLEBOTOMIST Lakshmi Monroy, DO, FACP CPT-96269 Ofc Vst, Est Level III 14:48:24 CERTIFIED PHLEBOTOMIST Lakshmi Aiken Monroy, DO, FACP CPT-37182 Ofc Vst, Est Level III 13:51:41 CERTIFIED PHLEBOTOMIST Lakshmi Aiken Monroy, DO, FACP CPT-77686 Ofc Vst, Est Level III 14:02:30 CERTIFIED PHLEBOTOMIST Lakshmi Aiken Monroy, DO, FACP CPT-59471 Ofc Vst, Est Level III 15:29:05 CDT Lakshmianaid Aiken Monroy, DO, FACP CPT-25414 Ofc Vst, Est Level IV 13:51:18 CDT Lakshmi Estela Aiken Monroy, DO, FACP CPT-46173 Ofc Vst, Est Level IV 15:07:40 CDT Lakshmi Estela Aiken Porfirio, DO, FACP CPT-00428 Ofc Vst, Est Level IV 14:34:41 CDT Lakshmianaid Aiken Porfirio, DO, FACP CPT-02062 Ofc Vst, Est Level IV 14:33:30 CERTIFIED PHLEBOTOMIST Lakshmi Aiken Monroy, DO, FACP CPT-01957 Ofc Vst, Est Level IV 11:09:55 CDT Lakshmi Aiken Porfirio, DO, FACP CPT-15214 Ofc Vst, Est Level IV 13:44:44 CERTIFIED PHLEBOTOMIST Lakshmi Aiken Monroy, DO, FACP CPT-51539 Ofc Vst, Est Level IV 14:33:25 CDT Lakshmi Aiken Porfirio, DO, FACP CPT-21706 Office Consult, Level IV 08:34:00 CDT Susan Henry Lakshmi Aiken Monroy, DO, FACP CPT-78942 Ofc Vst, Est Level IV 14:51:56 CDT Lakshmi Estela Aiken Porfirio, DO, FACP CPT-12428 Ofc Vst, Est Level IV 14:26:00 CERTIFIED PHLEBOTOMIST Lakshmi Monroy, DO, FACP CPT-36687 Ofc Vst, Est Level IV 14:05:51 CDT Lakshmi Monroy, DO, FACP CPT-39097 Ofc Vst, Est Level IV 10:24:07 CDT Lakshmi Estela Porfirio Monroy, DO, FACP CPT-40434 Ofc Vst, Est Level III 15:06:04 CERTIFIED PHLEBOTOMIST Lakshmi Monroy, DO, FACP CPT-62411 Ofc Vst, Est Level IV 13:53:46 CERTIFIED PHLEBOTOMIST Lakshmi Monroy, DO, FACP CPT-50288 Ofc Vst, Est Level IV 13:58:24 CDT Lakshmi Estela Porfirio Monroy, DO, FACP CPT-26928 Ofc Vst, Est Level IV 13:56:34 CDT Lakshmi Monroy [facility] [place] CPT-78783 Ofc Vst, Est Level IV 14:25:47 CERTIFIED PHLEBOTOMIST Lakshmi Monroy [facility] [place] CPT-85824 Ofc Vst, Est Level IV 10:19:35 CDT Lakshmi Monroy [facility] [place] CPT-50562 Ofc Vst, Est Level IV 15:24:38 CDT Lakshmi Monroy [facility] [place] CPT-04919 Ofc Vst, Est Level IV 15:25:43 CERTIFIED PHLEBOTOMIST Lakshmi Monroy [facility] [place] CPT-35136 Ofc Vst, Est Level IV 14:05:37 CERTIFIED PHLEBOTOMIST Lakshmi Monroy [facility] [place] CPT-84001 Ofc Vst, Est Level IV 14:20:46 CDT Lakshmi Monroy [facility] [place] CPT-47672 Ofc Vst, Est Level IV 08:27:24 CDT Lakshmi Monroy [facility] [place] CPT-54192 Ofc Vst, New Level III 16:27:18 CERTIFIED PHLEBOTOMIST Lakshmi Monroy [facility] [place] Procedures Code Procedure Name Date Entry Date Standard Description CPT-G0439 Medicare Annual Wellness Visit 09:55:52 CDT CPT-G8443 E-Prescribing Medication Sent 14:22:31 CDT CPT-G8445 E-Prescribing Not sent due to no medication given 15:31: 21 CERTIFIED PHLEBOTOMIST CPT-G8443 E-Prescribing Medication Sent 14:41:12 CDT CPT-G8445 E-Prescribing Not sent due to no medication given 16:05: 09 CDT CPT-G0439 Medicare Annual Wellness Visit 16:05:09 CDT CPT-G8443 E-Prescribing Medication Sent 10:08:50 CERTIFIED PHLEBOTOMIST CPT-G8443 E-Prescribing Medication Sent 14:48:24 CERTIFIED PHLEBOTOMIST CPT-G8446 E-Prescribing not done due to controlled substance 13:51 :41 CERTIFIED PHLEBOTOMIST CPT-G8445 E-Prescribing Not sent due to no medication given 14:02: 30 CERTIFIED PHLEBOTOMIST CPT-G0439 Medicare Annual Wellness Visit 13:36:51 CDT CPT-G0439 Medicare Annual Wellness Visit 14:31:23 CERTIFIED PHLEBOTOMIST CPT-8445 E-Prescribing Not sent due to no medication given 09:54: 33 CDT CPT-G0008 Administration Influenza Vaccine 14:26:00 CERTIFIED PHLEBOTOMIST CPT-70668 Influenza Vaccine 14:26:00 CERTIFIED PHLEBOTOMIST CPT-59098 Injection, Pneumovax 13:53:46 CERTIFIED PHLEBOTOMIST CPT-52093 Influenza Vaccine 13:53:46 CERTIFIED PHLEBOTOMIST CPT-G0008 Administration Influenza Vaccine 13:53:46 CERTIFIED PHLEBOTOMIST
[2017-10-24] MEDS ORDERED: MIDAZOLAM 2 MG/2 ML (VERSED) VIAL ONE (10:28)
[2017-10-24] MEDS ORDERED: ROCURONIUM 10 MG/ML 5 ML SYRINGE IV ONE (10:28)
--- OUTSIDE RECORDS SUMMARY | 2017-10-24 10:29 | XMS REPORT | Clinical Summary ---
Author Author abdi michaud [facility] [place] [address] Phone Unavailable Allergies, Adverse Reactions, Alerts Allergy Name Reaction Description Start Date Severity Status Provider ERYTHROMYCIN room spinned Critical Active Lakshmi Monroy Conditions or Problems Problem Name Problem Code Onset Date Status Entry Date Provider Comment Standard Description Annotate HYPERTENSION 401.1 Active Lakshmi Monroy ESSENTIAL HYPERTENSION, BENIGN HYPERCHOLESTEROLEMIA 272.0 Active Lakshmi Monroy PURE HYPERCHOLESTEROLEMIA ANXIETY 300.00 Active Lakshmi Monroy ANXIETY STATE, UNSPECIFIED HYPOTHYROIDISM, PRIMARY 244.9 Active Lakshmi Monroy UNSPECIFIED HYPOTHYROIDISM HYPERTENSION, WHITE COAT 796.2 Active Lakshmi Monroy ELEVATED BLOOD PRESSURE READING WITHOUT DIAGNOSIS OF HYPERTENSION UNSPECIFIED VITAMIN D DEFICIENCY 268.9 Active Lakshmi Monroy DERMATITIS 692.9 Active Lakshmi Monroy CONTACT DERMATITIS AND OTHER ECZEMA, DUE TO UNSPECIFIED CAUSE KNEE PAIN 719.46 Active Lakshmi Monroy PAIN IN JOINT, LOWER LEG EDEMA LEG 782.3 Active Lakshmi Monroy EDEMA COMPRESSION FRACTURE, THORACIC VERTEBRA 805.2 Active Lakshmi Monroy CLOSED FRACTURE OF DORSAL (THORACIC) VERTEBRA WITHOUT MENTION OF SPINAL CORD INJURY Medication List Medication Instructions Start Date Stop Date Generic Name NDC Status Provider Patient Instruction LISINOPRIL 10 MG TABS 1 po QD LISINOPRIL 72812529311 Active Susan Figueroa METOPROLOL TARTRATE 100 MG TABS 1 po QD METOPROLOL TARTRATE 89390709777 Active Susan Figueroa MULTIVITAMINS TABS 1 po QD MULTIPLE VITAMIN 31700807094 Active Lakshmi Monroy CALCIUM 500-100-40 CHEW 2 PO QAM CALCIUM-VITAMIN D-VITAMIN K 69060745122 Active Lakshmi Monroy ASPIRIN 81 MG TABS 1 PO QD ASPIRIN 58794909778 Active Lakshmi Monroy VITAMIN C 1000 MG TABS 1 po QD prn ASCORBIC ACID 54007203522 Active Lakshmi Monroy MECLIZINE HCL 25 MG TAB 1 PO Q6hrs prn dizziness MECLIZINE HCL 83697876026 Active Irving Galeano GAURAV 180 MG TABS 1 PO daily prn FEXOFENADINE HCL Active Susan Figueroa DIAZEPAM 5 MG TAB 1 PO QAM DIAZEPAM 96767445182 Active Susan Figueroa LUTEIN 6 MG CAPS 1 po BID LUTEIN 06918024458 Active Lakshmianaid Monroy ZADITOR 0.025 % SOLN 1 gtt in OU BID KETOTIFEN FUMARATE 27053047345 Active Lakshmi Monroy TRIAMCINOLONE ACETONIDE 0.1 % OINT apply sparingly to left ear skin daily prn TRIAMCINOLONE ACETONIDE 75897841867 Active Lakshmianaid Monroy LOTRIMIN AF 1 % SOLN 2 drops as directed prn itching. CLOTRIMAZOLE 02065673947 Active Lakshmi Monroy VITAMIN D 1000 UNIT TABS 1 PO Daily CHOLECALCIFEROL 15142272568 Active Lakshmi Monroy FISH OIL 1000 MG CAPS 1 PO QD OMEGA-3 FATTY ACIDS 45419700228 Active Susan Figueroa ZOCOR 40 MG TABS 1 PO daily SIMVASTATIN 05778116991 Active Susan Figueroa SYNTHROID 75 MCG TABS 1 PO daily LEVOTHYROXINE SODIUM 19882200814 Active Susan Figueroa NORVASC 5 MG TAB 1 PO QD AMLODIPINE BESYLATE 20885975562 Active Kai Claudio KLOR-CON M20 20 MEQ CR-TABS 1 po daily POTASSIUM CHLORIDE HALINA CR 90589970748 Active Susan Figueroa ULTRAM 50 MG TAB 1 PO TID prn TRAMADOL HCL 51305916501 Active Lakshmi Palmer Porfirio LASIX 20 MG TAB 1 PO daily prn swelling FUROSEMIDE 02320505030 Active Lakshmi Monroy Vital Signs Date Name Value Unit Range Description blood pressure, diastolic 82 mm[Hg] BP horner blood pressure, systolic 132 mm[Hg] BP sys pulse rate E&M 74 /min Heart rate respiratory rate E&M 14 /min Resp rate weight E&M 165 [lb_av] Weight Measured blood pressure, diastolic 80 mm[Hg] BP horner blood pressure, systolic 130 mm[Hg] BP sys pulse rate E&M 90 /min Heart rate respiratory rate E&M 14 /min Resp rate blood pressure, diastolic 72 mm[Hg] BP horner blood pressure, systolic 136 mm[Hg] BP sys respiratory rate E&M 74 /min Resp rate blood pressure, diastolic 86 mm[Hg] BP horner blood pressure, systolic 146 mm[Hg] BP sys pulse rate E&M 80 /min Heart rate respiratory rate E&M 14 /min Resp rate temperature E&M 98.6 [degF] Body temperature weight E&M 180 [lb_av] Weight Measured blood pressure, diastolic 90 mm[Hg] BP horner blood pressure, systolic 154 mm[Hg] BP sys pulse rate E&M 66 /min Heart rate respiratory rate E&M 14 /min Resp rate blood pressure, diastolic 85 mm[Hg] BP horner blood pressure, systolic 135 mm[Hg] BP sys pulse rate E&M 72 /min Heart rate respiratory rate E&M 14 /min Resp rate temperature E&M 98.6 [degF] Body temperature weight E&M 167 [lb_av] Weight Measured Diagnostic Results Date Name Value Unit Range Description Clinical Lists Update: CBC,CMP,FLP,TSH,Free T4 - Chemistry Estimated Glomerular Filtration Rate (calc) 48 mL/min/1.73m2 albumin, serum 4.2 g/dL cholesterol/HDL ratio, serum 2.7 anion gap, serum 14 sodium, serum 141 mmol/L triglyceride, serum, fasting 112 mg/dL bilirubin, serum, total 0.6 mg/dL alanine aminotransferase (SGPT), serum 13 U/L aspartate aminotransferase (SGOT), serum 22 U/L protein, total, serum 7.0 g/dL potassium, serum 3.7 mmol/L LDL cholesterol, serum 69 mg/dL thyroid stimulating hormone, serum 1.60 u[iU]/mL HDL cholesterol, serum 53.0 mg/dL thyroxine, serum, free 1.02 ng/dL creatinine, serum 1.1 mg/dL carbon dioxide, venous blood 29.0 mmol/L cholesterol, serum 144 mg/dL chloride, serum 102 mmol/L calcium, serum 9.0 mg/dL urea nitrogen, blood 16 mg/dL alkaline phosphatase, serum 59 U/L glucose, plasma fasting 94 mg/dL Clinical Lists Update: CBC,CMP,FLP,TSH,Free T4 - Hematology red blood cell distribution width 14.6 % mean corpuscular volume, RBC 94 fL leukocyte count, blood 6.5 10*3/mm3 erythrocyte (RBC) count 4.74 10*6/mm3 platelet count 190 10*3/mm3 hemoglobin, blood 14.0 g/dL hematocrit, blood 44 % Clinical Lists Update: CMP,FLP,TSH,Free T4 - Chemistry Estimated Glomerular Filtration Rate (calc) 51 mL/min/1.73m2 alkaline phosphatase, serum 56 U/L urea nitrogen, blood 13 mg/dL calcium, serum 9.2 mg/dL chloride, serum 101 mmol/L cholesterol, serum 174 mg/dL carbon dioxide, venous blood 27.0 mmol/L creatinine, serum 1.1 mg/dL thyroxine, serum, free 0.99 ng/dL HDL cholesterol, serum 52.0 mg/dL thyroid stimulating hormone, serum 2.84 u[iU]/mL LDL cholesterol, serum 98 mg/dL potassium, serum 3.6 mmol/L protein, total, serum 7.0 g/dL aspartate aminotransferase (SGOT), serum 21 U/L alanine aminotransferase (SGPT), serum 12 U/L bilirubin, serum, total 0.8 mg/dL triglyceride, serum, fasting 118 mg/dL albumin, serum 4.1 g/dL glucose, plasma fasting 95 mg/dL cholesterol/HDL ratio, serum 3.3 anion gap, serum 15 sodium, serum 139 mmol/L Clinical Lists Update: CMP,TSH,Free T4 - Chemistry calcium, serum 8.9 mg/dL Estimated Glomerular Filtration Rate (calc) 56 mL/min/1.73m2 creatinine, serum 1.0 mg/dL aspartate aminotransferase (SGOT), serum 21 U/L albumin, serum 4.0 g/dL alanine aminotransferase (SGPT), serum 23 U/L thyroxine, serum, free 0.98 ng/dL bilirubin, serum, total 0.5 mg/dL chloride, serum 103 mmol/L urea nitrogen, blood 13 mg/dL sodium, serum 140 mmol/L thyroid stimulating hormone, serum 1.88 u[iU]/mL anion gap, serum 12 alkaline phosphatase, serum 83 U/L carbon dioxide, venous blood 29.0 mmol/L glucose, plasma fasting 95 mg/dL potassium, serum 3.8 mmol/L protein, total, serum 6.6 g/dL
--- OUTSIDE RECORDS SUMMARY | 2017-10-24 10:29 | XMS REPORT | Clinical Summary ---
Author Author abdi michaud [facility] [place] [address] Phone Unavailable Allergies, Adverse Reactions, Alerts Allergy [...] 10 MG TABS 1 po QD LISINOPRIL 83740513108 Active Susan Figueroa METOPROLOL TARTRATE 100 MG TABS 1 po QD METOPROLOL TARTRATE 55447103906 Active Susan Figueroa MULTIVITAMINS TABS 1 po QD MULTIPLE VITAMIN 39795253922 Active Lakshmi Monroy CALCIUM 500-100-40 CHEW 2 PO QAM CALCIUM-VITAMIN D-VITAMIN K 77424763208 Active Lakshmi Monroy ASPIRIN 81 MG TABS 1 PO QD ASPIRIN 27371239942 Active Lakshmi Monroy VITAMIN C 1000 MG TABS 1 po QD prn ASCORBIC ACID 43526055062 Active Lakshmi Monroy MECLIZINE HCL 25 MG TAB 1 PO Q6hrs prn dizziness MECLIZINE HCL 64795399310 Active Irving Galeano GAURAV 180 MG TABS 1 PO daily prn FEXOFENADINE HCL Active Susan Figueroa DIAZEPAM 5 MG TAB 1 PO QAM DIAZEPAM 78506083076 Active Susan Figueroa LUTEIN 6 MG CAPS 1 po BID LUTEIN 40780103975 Active Lakshmianaid Monroy ZADITOR 0.025 % SOLN 1 gtt in OU BID KETOTIFEN FUMARATE 61583710898 Active Lakshmi Monroy TRIAMCINOLONE ACETONIDE 0.1 % OINT apply sparingly to left ear skin daily prn TRIAMCINOLONE ACETONIDE 51082906451 Active Lakshmianaid Monroy LOTRIMIN AF 1 % SOLN 2 drops as directed prn itching. CLOTRIMAZOLE 81039617778 Active Lakshmi Monroy VITAMIN D 1000 UNIT TABS 1 PO Daily CHOLECALCIFEROL 67612867992 Active Lakshmi Monroy FISH OIL 1000 MG CAPS 1 PO QD OMEGA-3 FATTY ACIDS 28874656647 Active Susan Figueroa ZOCOR 40 MG TABS 1 PO daily SIMVASTATIN 64167493906 Active Susan Figueroa SYNTHROID 75 MCG TABS 1 PO daily LEVOTHYROXINE SODIUM 87628832333 Active Susan Figueroa NORVASC 5 MG TAB 1 PO QD AMLODIPINE BESYLATE 03284498090 Active Kai Claudio KLOR-CON M20 20 MEQ CR-TABS 1 po daily POTASSIUM CHLORIDE HALINA CR 71944382242 Active Susan Figueroa ULTRAM 50 MG TAB 1 PO TID prn TRAMADOL HCL 26471706285 Active Lakshmi Palmer Porfirio LASIX 20 MG TAB 1 PO daily prn swelling FUROSEMIDE 69032807384 Active Lakshmi Monroy Vital Signs Date Name [...] Measured blood pressure, diastolic 90 mm[Hg] BP horenr blood pressure, systolic 154 mm[Hg] BP sys [...]
[2017-10-24] MEDS ORDERED: ceFAZolin 2 GM/50 ML PRE-MIX IVPB IV ONE (10:30)
[2017-10-24] MEDS ORDERED: MIDAZOLAM 2 MG/2 ML (VERSED) VIAL IV ONE (10:30)
--- OUTSIDE RECORDS SUMMARY | 2017-10-24 10:30 | XMS REPORT | Clinical Summary ---
Author Author abdi michaud [facility] [place] [address] Phone Unavailable Allergies, Adverse Reactions, Alerts Allergy [...] 10 MG TABS 1 po QD LISINOPRIL 91824193982 Active Susan Figueroa METOPROLOL TARTRATE 100 MG TABS 1 po QD METOPROLOL TARTRATE 93604512996 Active Susan Figueroa MULTIVITAMINS TABS 1 po QD MULTIPLE VITAMIN 73966611338 Active Lakshmi Monroy CALCIUM 500-100-40 CHEW 2 PO QAM CALCIUM-VITAMIN D-VITAMIN K 08208234253 Active Lakshmi Monroy ASPIRIN 81 MG TABS 1 PO QD ASPIRIN 46614409704 Active Lakshmi Monroy VITAMIN C 1000 MG TABS 1 po QD prn ASCORBIC ACID 60024017594 Active Lakshmi Monroy MECLIZINE HCL 25 MG TAB 1 PO Q6hrs prn dizziness MECLIZINE HCL 03846763362 Active Irving Galeano GAURAV 180 MG TABS 1 PO daily prn FEXOFENADINE HCL Active Susan Figueroa DIAZEPAM 5 MG TAB 1 PO QAM DIAZEPAM 75554578980 Active Susan Figueroa LUTEIN 6 MG CAPS 1 po BID LUTEIN 29218222105 Active Lakshmianaid Monroy ZADITOR 0.025 % SOLN 1 gtt in OU BID KETOTIFEN FUMARATE 41020240337 Active Lakshmi Monroy TRIAMCINOLONE ACETONIDE 0.1 % OINT apply sparingly to left ear skin daily prn TRIAMCINOLONE ACETONIDE 51942929964 Active Lakshmianaid Monroy LOTRIMIN AF 1 % SOLN 2 drops as directed prn itching. CLOTRIMAZOLE 83215641099 Active Lakshmi Monroy VITAMIN D 1000 UNIT TABS 1 PO Daily CHOLECALCIFEROL 14185242495 Active Lakshmi Monroy FISH OIL 1000 MG CAPS 1 PO QD OMEGA-3 FATTY ACIDS 32539118813 Active Susan Figueroa ZOCOR 40 MG TABS 1 PO daily SIMVASTATIN 68230922023 Active Susan Figueroa SYNTHROID 75 MCG TABS 1 PO daily LEVOTHYROXINE SODIUM 36412569057 Active Susan Figueroa NORVASC 5 MG TAB 1 PO QD AMLODIPINE BESYLATE 32092970585 Active Kai Claudio KLOR-CON M20 20 MEQ CR-TABS 1 po daily POTASSIUM CHLORIDE HALINA CR 39294716905 Active Susan Figeuroa ULTRAM 50 MG TAB 1 PO TID prn TRAMADOL HCL 75763036261 Active Lakshmi Palmer Porfirio LASIX 20 MG TAB 1 PO daily prn swelling FUROSEMIDE 60964597979 Active Lakshmi Monroy Vital Signs Date Name [...]
--- OUTSIDE RECORDS SUMMARY | 2017-10-24 10:30 | XMS REPORT | Clinical Summary ---
Author Author abdi michaud [facility] [place] [address] Phone Unavailable Allergies, Adverse Reactions, Alerts Allergy [...] 10 MG TABS 1 po QD LISINOPRIL 54466643835 Active Susan Figueroa METOPROLOL TARTRATE 100 MG TABS 1 po QD METOPROLOL TARTRATE 54439661155 Active Susan Figueroa MULTIVITAMINS TABS 1 po QD MULTIPLE VITAMIN 56528576551 Active Lakshmi Monroy CALCIUM 500-100-40 CHEW 2 PO QAM CALCIUM-VITAMIN D-VITAMIN K 28762185680 Active Lakshmi Monroy ASPIRIN 81 MG TABS 1 PO QD ASPIRIN 46679977455 Active Lakshmi Monroy VITAMIN C 1000 MG TABS 1 po QD prn ASCORBIC ACID 72660931478 Active Lakshmi Monroy MECLIZINE HCL 25 MG TAB 1 PO Q6hrs prn dizziness MECLIZINE HCL 50449575605 Active Irving Galeano GAURAV 180 MG TABS 1 PO daily prn FEXOFENADINE HCL Active Susan Figueroa DIAZEPAM 5 MG TAB 1 PO QAM DIAZEPAM 09028741127 Active Susan Figueroa LUTEIN 6 MG CAPS 1 po BID LUTEIN 64657210490 Active Lakshmianaid Monroy ZADITOR 0.025 % SOLN 1 gtt in OU BID KETOTIFEN FUMARATE 65948007634 Active Lakshmi Monroy TRIAMCINOLONE ACETONIDE 0.1 % OINT apply sparingly to left ear skin daily prn TRIAMCINOLONE ACETONIDE 53463818309 Active Lakshmianaid Monroy LOTRIMIN AF 1 % SOLN 2 drops as directed prn itching. CLOTRIMAZOLE 92177058386 Active Lakshmi Monroy VITAMIN D 1000 UNIT TABS 1 PO Daily CHOLECALCIFEROL 09662840355 Active Lakshmi Monroy FISH OIL 1000 MG CAPS 1 PO QD OMEGA-3 FATTY ACIDS 53067563240 Active Susan Figueroa ZOCOR 40 MG TABS 1 PO daily SIMVASTATIN 02095288189 Active Susan Figueroa SYNTHROID 75 MCG TABS 1 PO daily LEVOTHYROXINE SODIUM 69069778812 Active Susan Figueroa NORVASC 5 MG TAB 1 PO QD AMLODIPINE BESYLATE 38639000105 Active Kai Claudio KLOR-CON M20 20 MEQ CR-TABS 1 po daily POTASSIUM CHLORIDE HALINA CR 22414327825 Active Susan Figueroa ULTRAM 50 MG TAB 1 PO TID prn TRAMADOL HCL 53087496773 Active Lakshmi Palmer Porfirio LASIX 20 MG TAB 1 PO daily prn swelling FUROSEMIDE 68191025399 Active Lakshmi Monroy Vital Signs Date Name [...]
--- OUTSIDE RECORDS SUMMARY | 2017-10-24 10:31 | XMS REPORT | Clinical Summary ---
Author Author abdi michaud [facility] [place] [address] Phone Unavailable Allergies, Adverse Reactions, Alerts Allergy [...] 10 MG TABS 1 po QD LISINOPRIL 75614445167 Active Susan Figueroa METOPROLOL TARTRATE 100 MG TABS 1 po QD METOPROLOL TARTRATE 54334577670 Active Susan Figueroa MULTIVITAMINS TABS 1 po QD MULTIPLE VITAMIN 20815792933 Active Lakshmi Monroy CALCIUM 500-100-40 CHEW 2 PO QAM CALCIUM-VITAMIN D-VITAMIN K 08636902716 Active Lakshmi Monroy ASPIRIN 81 MG TABS 1 PO QD ASPIRIN 52915973214 Active Lakshmi Monroy VITAMIN C 1000 MG TABS 1 po QD prn ASCORBIC ACID 83659114752 Active Lakshmi Monroy MECLIZINE HCL 25 MG TAB 1 PO Q6hrs prn dizziness MECLIZINE HCL 97615462216 Active Irving Galeano GAURAV 180 MG TABS 1 PO daily prn FEXOFENADINE HCL Active Susan Figueroa DIAZEPAM 5 MG TAB 1 PO QAM DIAZEPAM 87443549250 Active Susan Figueroa LUTEIN 6 MG CAPS 1 po BID LUTEIN 64766064524 Active Lakshmianaid Monroy ZADITOR 0.025 % SOLN 1 gtt in OU BID KETOTIFEN FUMARATE 27222746987 Active Lakshmi Monroy TRIAMCINOLONE ACETONIDE 0.1 % OINT apply sparingly to left ear skin daily prn TRIAMCINOLONE ACETONIDE 10408368393 Active Lakshmianaid Monroy LOTRIMIN AF 1 % SOLN 2 drops as directed prn itching. CLOTRIMAZOLE 01813552290 Active Lakshmi Monroy VITAMIN D 1000 UNIT TABS 1 PO Daily CHOLECALCIFEROL 58482240347 Active Lakshmi Monroy FISH OIL 1000 MG CAPS 1 PO QD OMEGA-3 FATTY ACIDS 34035992983 Active Susan Figueroa ZOCOR 40 MG TABS 1 PO daily SIMVASTATIN 77758468641 Active Susan Figueroa SYNTHROID 75 MCG TABS 1 PO daily LEVOTHYROXINE SODIUM 41425448571 Active Susan Figueroa NORVASC 5 MG TAB 1 PO QD AMLODIPINE BESYLATE 36828394961 Active Kai Claudio KLOR-CON M20 20 MEQ CR-TABS 1 po daily POTASSIUM CHLORIDE HALINA CR 07369915224 Active Susan Figueroa ULTRAM 50 MG TAB 1 PO TID prn TRAMADOL HCL 03063385219 Active Lakshmi Palmer Porfirio LASIX 20 MG TAB 1 PO daily prn swelling FUROSEMIDE 46708728631 Active Lakshmi Monroy Vital Signs Date Name [...] Estimated Glomerular Filtration Rate (calc) 48 mL/min/1.73m2 glucose, plasma fasting 94 mg/dL albumin, serum 4.2 g/dL alkaline phosphatase, serum 59 U/L urea nitrogen, blood 16 mg/dL calcium, serum 9.0 mg/dL chloride, serum 102 mmol/L cholesterol, serum 144 mg/dL cholesterol/HDL ratio, serum 2.7 anion gap, serum [...] mg/dL carbon dioxide, venous blood 29.0 mmol/L Clinical Lists Update: CBC,CMP,FLP,TSH,Free T4 - Hematology leukocyte count, blood 6.5 10*3/mm3 mean corpuscular volume, RBC 94 fL red blood cell distribution width 14.6 % hemoglobin, blood 14.0 g/dL platelet count 190 10*3/mm3 erythrocyte (RBC) count 4.74 10*6/mm3 hematocrit, blood 44 % Clinical Lists Update: CMP,FLP,TSH,Free T4 - Chemistry Estimated Glomerular Filtration Rate (calc) 51 mL/min/1.73m2 glucose, plasma fasting 95 mg/dL cholesterol/HDL ratio, [...] 13 mg/dL alkaline phosphatase, serum 56 U/L albumin, serum 4.1 g/dL Clinical Lists Update: CMP,TSH,Free T4 - Chemistry Estimated Glomerular Filtration Rate (calc) 56 mL/min/1.73m2 albumin, serum 4.0 g/dL anion gap, serum 12 sodium, serum 140 mmol/L bilirubin, serum, total 0.5 mg/dL alanine aminotransferase (SGPT), serum 23 U/L aspartate aminotransferase (SGOT), serum 21 U/L protein, total, serum 6.6 g/dL potassium, serum 3.8 mmol/L thyroid stimulating hormone, serum 1.88 u[iU]/mL thyroxine, serum, free 0.98 ng/dL creatinine, serum 1.0 mg/dL carbon dioxide, venous blood 29.0 mmol/L chloride, serum 103 mmol/L calcium, serum 8.9 mg/dL urea nitrogen, blood 13 mg/dL alkaline phosphatase, serum 83 U/L glucose, plasma fasting 95 mg/dL
--- OUTSIDE RECORDS SUMMARY | 2017-10-24 10:31 | XMS REPORT | Clinical Summary ---
Author Author abdi michaud [facility] [place] [address] Phone Unavailable Allergies, Adverse Reactions, Alerts Allergy [...] 10 MG TABS 1 po QD LISINOPRIL 72492425452 Active Susan Figueroa METOPROLOL TARTRATE 100 MG TABS 1 po QD METOPROLOL TARTRATE 10906532737 Active Susan Figueroa MULTIVITAMINS TABS 1 po QD MULTIPLE VITAMIN 48568138114 Active Lakshmi Monroy CALCIUM 500-100-40 CHEW 2 PO QAM CALCIUM-VITAMIN D-VITAMIN K 28972376577 Active Lakshmi Monroy ASPIRIN 81 MG TABS 1 PO QD ASPIRIN 56029084979 Active Lakshmi Monroy VITAMIN C 1000 MG TABS 1 po QD prn ASCORBIC ACID 60004012051 Active Lakshmi Monroy MECLIZINE HCL 25 MG TAB 1 PO Q6hrs prn dizziness MECLIZINE HCL 69230809974 Active Irving Galeano GAURAV 180 MG TABS 1 PO daily prn FEXOFENADINE HCL Active Susan Figueroa DIAZEPAM 5 MG TAB 1 PO QAM DIAZEPAM 91619793770 Active Susan Figueroa LUTEIN 6 MG CAPS 1 po BID LUTEIN 15986824658 Active Lakshmianaid Monroy ZADITOR 0.025 % SOLN 1 gtt in OU BID KETOTIFEN FUMARATE 21480124384 Active Lakshmi Monroy TRIAMCINOLONE ACETONIDE 0.1 % OINT apply sparingly to left ear skin daily prn TRIAMCINOLONE ACETONIDE 45678743920 Active Lakshmianaid Monroy LOTRIMIN AF 1 % SOLN 2 drops as directed prn itching. CLOTRIMAZOLE 82388005071 Active Lakshmi Monroy VITAMIN D 1000 UNIT TABS 1 PO Daily CHOLECALCIFEROL 82887175935 Active Lakshmi Monroy FISH OIL 1000 MG CAPS 1 PO QD OMEGA-3 FATTY ACIDS 99731698088 Active Susan Figueroa ZOCOR 40 MG TABS 1 PO daily SIMVASTATIN 93558654141 Active Susan Figueroa SYNTHROID 75 MCG TABS 1 PO daily LEVOTHYROXINE SODIUM 03930324531 Active Susan Figueroa NORVASC 5 MG TAB 1 PO QD AMLODIPINE BESYLATE 02441253816 Active Kai Claudio KLOR-CON M20 20 MEQ CR-TABS 1 po daily POTASSIUM CHLORIDE HALINA CR 86056715424 Active Susan Figueroa ULTRAM 50 MG TAB 1 PO TID prn TRAMADOL HCL 59843868776 Active Lakshmi Palmer Porfirio LASIX 20 MG TAB 1 PO daily prn swelling FUROSEMIDE 32065451014 Active Lakshmi Monroy Vital Signs Date Name [...] hematocrit, blood 42 % Clinical Lists Update: CBC,CMP,FLP,TSH,Free T4 - Chemistry Estimated Glomerular Filtration Rate (calc) 48 mL/min/1.73m2 glucose, plasma fasting 94 mg/dL cholesterol/HDL ratio, serum 2.7 anion gap, [...] 16 mg/dL alkaline phosphatase, serum 59 U/L albumin, serum 4.2 g/dL Clinical Lists Update: CBC,CMP,FLP,TSH,Free T4 - Hematology platelet count 190 10*3/mm3 red blood cell distribution width 14.6 % erythrocyte (RBC) count 4.74 10*6/mm3 mean corpuscular volume, RBC 94 fL hematocrit, blood 44 % hemoglobin, blood 14.0 g/dL leukocyte count, blood 6.5 10*3/mm3 Clinical Lists Update: CMP,FLP,TSH,Free T4 - Chemistry alanine aminotransferase (SGPT), serum 12 U/L bilirubin, serum, total 0.8 mg/dL triglyceride, serum, fasting 118 mg/dL sodium, serum 139 mmol/L anion gap, serum 15 cholesterol/HDL ratio, serum 3.3 glucose, plasma fasting 95 mg/dL Estimated Glomerular Filtration Rate (calc) 51 mL/min/1.73m2 albumin, serum 4.1 g/dL alkaline phosphatase, serum 56 U/L urea nitrogen, [...] g/dL aspartate aminotransferase (SGOT), serum 21 U/L Clinical Lists Update: CMP,TSH,Free T4 - Chemistry alanine aminotransferase (SGPT), serum 23 U/L aspartate aminotransferase (SGOT), serum 21 U/L Estimated Glomerular Filtration Rate (calc) 56 mL/min/1.73m2 carbon dioxide, venous blood 29.0 mmol/L albumin, serum 4.0 g/dL creatinine, serum 1.0 mg/dL glucose, plasma fasting 95 mg/dL thyroxine, serum, free 0.98 ng/dL alkaline phosphatase, serum 83 U/L anion gap, serum 12 thyroid stimulating hormone, serum 1.88 u[iU]/mL urea nitrogen, blood 13 mg/dL sodium, serum 140 mmol/L potassium, serum 3.8 mmol/L calcium, serum 8.9 mg/dL protein, total, serum 6.6 g/dL bilirubin, serum, total 0.5 mg/dL chloride, serum 103 mmol/L
--- OUTSIDE RECORDS SUMMARY | 2017-10-24 10:32 | XMS REPORT | Clinical Summary ---
Author Author abdi michaud [facility] [place] [address] Phone Unavailable Allergies, Adverse Reactions, Alerts Allergy [...] 10 MG TABS 1 po QD LISINOPRIL 01543346553 Active Susan Figueroa METOPROLOL TARTRATE 100 MG TABS 1 po QD METOPROLOL TARTRATE 08211737444 Active Susan Figueroa MULTIVITAMINS TABS 1 po QD MULTIPLE VITAMIN 72309708858 Active Lakshmi Monroy CALCIUM 500-100-40 CHEW 2 PO QAM CALCIUM-VITAMIN D-VITAMIN K 62015096512 Active Lakshmi Monroy ASPIRIN 81 MG TABS 1 PO QD ASPIRIN 11865483033 Active Lakshmi Monroy VITAMIN C 1000 MG TABS 1 po QD prn ASCORBIC ACID 95376705886 Active Lakshmi Monroy MECLIZINE HCL 25 MG TAB 1 PO Q6hrs prn dizziness MECLIZINE HCL 77631517575 Active Irving Galeano GAURAV 180 MG TABS 1 PO daily prn FEXOFENADINE HCL Active Susan Figueroa DIAZEPAM 5 MG TAB 1 PO QAM DIAZEPAM 52459397695 Active Susan Figueroa LUTEIN 6 MG CAPS 1 po BID LUTEIN 35247051095 Active Lakshmianaid Monroy ZADITOR 0.025 % SOLN 1 gtt in OU BID KETOTIFEN FUMARATE 86899755480 Active Lakshmi Monroy TRIAMCINOLONE ACETONIDE 0.1 % OINT apply sparingly to left ear skin daily prn TRIAMCINOLONE ACETONIDE 73533482032 Active Lakshmianaid Monroy LOTRIMIN AF 1 % SOLN 2 drops as directed prn itching. CLOTRIMAZOLE 44941810813 Active Lakshmi Monroy VITAMIN D 1000 UNIT TABS 1 PO Daily CHOLECALCIFEROL 96810504383 Active Lakshmi Monroy FISH OIL 1000 MG CAPS 1 PO QD OMEGA-3 FATTY ACIDS 71453607668 Active Susan Figueroa ZOCOR 40 MG TABS 1 PO daily SIMVASTATIN 60932877285 Active Susan Figueroa SYNTHROID 75 MCG TABS 1 PO daily LEVOTHYROXINE SODIUM 52818215883 Active Susan Figueroa NORVASC 5 MG TAB 1 PO QD AMLODIPINE BESYLATE 06201150955 Active Kai Claudio KLOR-CON M20 20 MEQ CR-TABS 1 po daily POTASSIUM CHLORIDE HALINA CR 47671660103 Active Susan Figueroa ULTRAM 50 MG TAB 1 PO TID prn TRAMADOL HCL 55348415733 Active Lakshmi Palmer Porfirio LASIX 20 MG TAB 1 PO daily prn swelling FUROSEMIDE 93617977771 Active Lakshmi Monroy Vital Signs Date Name [...]
--- OUTSIDE RECORDS SUMMARY | 2017-10-24 10:32 | XMS REPORT | Clinical Summary ---
Author Author abdi michaud [facility] [place] [address] Phone Unavailable Allergies, Adverse Reactions, Alerts Allergy [...] 10 MG TABS 1 po QD LISINOPRIL 84393205483 Active Susan Figueroa METOPROLOL TARTRATE 100 MG TABS 1 po QD METOPROLOL TARTRATE 42465352092 Active Susan Figueroa MULTIVITAMINS TABS 1 po QD MULTIPLE VITAMIN 62853938670 Active Lakshmi Monroy CALCIUM 500-100-40 CHEW 2 PO QAM CALCIUM-VITAMIN D-VITAMIN K 21846020347 Active Lakshmi Monroy ASPIRIN 81 MG TABS 1 PO QD ASPIRIN 45506222646 Active Lakshmi Monroy VITAMIN C 1000 MG TABS 1 po QD prn ASCORBIC ACID 56012459517 Active Lakshmi Monroy MECLIZINE HCL 25 MG TAB 1 PO Q6hrs prn dizziness MECLIZINE HCL 57882433592 Active Irving Galeano GAURAV 180 MG TABS 1 PO daily prn FEXOFENADINE HCL Active Susan Figueroa DIAZEPAM 5 MG TAB 1 PO QAM DIAZEPAM 15440426740 Active Susan Figueroa LUTEIN 6 MG CAPS 1 po BID LUTEIN 06702921915 Active Lakshmianaid Monryo ZADITOR 0.025 % SOLN 1 gtt in OU BID KETOTIFEN FUMARATE 69871815937 Active Lakshmi Monroy TRIAMCINOLONE ACETONIDE 0.1 % OINT apply sparingly to left ear skin daily prn TRIAMCINOLONE ACETONIDE 64588862089 Active Lakshmianaid Monroy LOTRIMIN AF 1 % SOLN 2 drops as directed prn itching. CLOTRIMAZOLE 65709055989 Active Lakshmi Monroy VITAMIN D 1000 UNIT TABS 1 PO Daily CHOLECALCIFEROL 54336142242 Active Lakshmi Monroy FISH OIL 1000 MG CAPS 1 PO QD OMEGA-3 FATTY ACIDS 09179531042 Active Susan Figueroa ZOCOR 40 MG TABS 1 PO daily SIMVASTATIN 63305058034 Active Susan Figueroa SYNTHROID 75 MCG TABS 1 PO daily LEVOTHYROXINE SODIUM 21485062961 Active Susan Figueroa NORVASC 5 MG TAB 1 PO QD AMLODIPINE BESYLATE 72677133343 Active Kai Claudio KLOR-CON M20 20 MEQ CR-TABS 1 po daily POTASSIUM CHLORIDE HALINA CR 17248065390 Active Susan Figueroa ULTRAM 50 MG TAB 1 PO TID prn TRAMADOL HCL 83663284709 Active Lakshmi Palmer Porfirio LASIX 20 MG TAB 1 PO daily prn swelling FUROSEMIDE 74970488285 Active Lakshmi Monroy Vital Signs Date Name [...]
--- OUTSIDE RECORDS SUMMARY | 2017-10-24 10:33 | XMS REPORT | Clinical Summary ---
Author Author abdi michaud [facility] [place] [address] Phone Unavailable Allergies, Adverse Reactions, Alerts Allergy [...] 10 MG TABS 1 po QD LISINOPRIL 04125258278 Active Susan Figueroa METOPROLOL TARTRATE 100 MG TABS 1 po QD METOPROLOL TARTRATE 15071110414 Active Susan Figueroa MULTIVITAMINS TABS 1 po QD MULTIPLE VITAMIN 98395373650 Active Lakshmi Monroy CALCIUM 500-100-40 CHEW 2 PO QAM CALCIUM-VITAMIN D-VITAMIN K 76542493627 Active Lakshmi Monroy ASPIRIN 81 MG TABS 1 PO QD ASPIRIN 70559579321 Active Lakshmi Monroy VITAMIN C 1000 MG TABS 1 po QD prn ASCORBIC ACID 72680856048 Active Lakshmi Monroy MECLIZINE HCL 25 MG TAB 1 PO Q6hrs prn dizziness MECLIZINE HCL 46074463125 Active Irving Galeano GAURAV 180 MG TABS 1 PO daily prn FEXOFENADINE HCL Active Susan Figueroa DIAZEPAM 5 MG TAB 1 PO QAM DIAZEPAM 82963522372 Active Susan Figueroa LUTEIN 6 MG CAPS 1 po BID LUTEIN 72650338238 Active Lakshmianaid Monroy ZADITOR 0.025 % SOLN 1 gtt in OU BID KETOTIFEN FUMARATE 15931860238 Active Lakshmi Monroy TRIAMCINOLONE ACETONIDE 0.1 % OINT apply sparingly to left ear skin daily prn TRIAMCINOLONE ACETONIDE 93651463051 Active Lakshmianaid Monroy LOTRIMIN AF 1 % SOLN 2 drops as directed prn itching. CLOTRIMAZOLE 07748368545 Active Lakshmi Monroy VITAMIN D 1000 UNIT TABS 1 PO Daily CHOLECALCIFEROL 30977348798 Active Lakshmi Monroy FISH OIL 1000 MG CAPS 1 PO QD OMEGA-3 FATTY ACIDS 05575867451 Active Susan Figueroa ZOCOR 40 MG TABS 1 PO daily SIMVASTATIN 76540463578 Active Susan Figueroa SYNTHROID 75 MCG TABS 1 PO daily LEVOTHYROXINE SODIUM 34059629692 Active Susan Figueroa NORVASC 5 MG TAB 1 PO QD AMLODIPINE BESYLATE 89695398055 Active Kai Claudio KLOR-CON M20 20 MEQ CR-TABS 1 po daily POTASSIUM CHLORIDE HALINA CR 77740322344 Active Susan Figueroa ULTRAM 50 MG TAB 1 PO TID prn TRAMADOL HCL 12437932454 Active Lakshmi Palmer Porfirio LASIX 20 MG TAB 1 PO daily prn swelling FUROSEMIDE 44494266195 Active Lakshmi Monroy Vital Signs Date Name [...]
--- OUTSIDE RECORDS SUMMARY | 2017-10-24 10:33 | XMS REPORT | Clinical Summary ---
Author Author abdi michaud [facility] [place] [address] Phone Unavailable Allergies, Adverse Reactions, Alerts Allergy [...] 10 MG TABS 1 po QD LISINOPRIL 13268912843 Active Susan Figueroa METOPROLOL TARTRATE 100 MG TABS 1 po QD METOPROLOL TARTRATE 50678954013 Active Susan Figueroa MULTIVITAMINS TABS 1 po QD MULTIPLE VITAMIN 28054396052 Active Lakshmi Monroy CALCIUM 500-100-40 CHEW 2 PO QAM CALCIUM-VITAMIN D-VITAMIN K 22893963966 Active Lakshmi Monroy ASPIRIN 81 MG TABS 1 PO QD ASPIRIN 66885830420 Active Lakshmi Monroy VITAMIN C 1000 MG TABS 1 po QD prn ASCORBIC ACID 14737422300 Active Lakshmi Monroy MECLIZINE HCL 25 MG TAB 1 PO Q6hrs prn dizziness MECLIZINE HCL 50406156178 Active Irving Galeano GAURAV 180 MG TABS 1 PO daily prn FEXOFENADINE HCL Active Susan Figueroa DIAZEPAM 5 MG TAB 1 PO QAM DIAZEPAM 33148148355 Active Susan Figueroa LUTEIN 6 MG CAPS 1 po BID LUTEIN 45622669976 Active Lakshmianaid Monroy ZADITOR 0.025 % SOLN 1 gtt in OU BID KETOTIFEN FUMARATE 71509449441 Active Lakshmi Monroy TRIAMCINOLONE ACETONIDE 0.1 % OINT apply sparingly to left ear skin daily prn TRIAMCINOLONE ACETONIDE 33904330400 Active Lakshmianaid Monroy LOTRIMIN AF 1 % SOLN 2 drops as directed prn itching. CLOTRIMAZOLE 06785525719 Active Lakshmi Monroy VITAMIN D 1000 UNIT TABS 1 PO Daily CHOLECALCIFEROL 39239010804 Active Lakshmi Monroy FISH OIL 1000 MG CAPS 1 PO QD OMEGA-3 FATTY ACIDS 34075762282 Active Susan Figueroa ZOCOR 40 MG TABS 1 PO daily SIMVASTATIN 79751051100 Active Susan Figueroa SYNTHROID 75 MCG TABS 1 PO daily LEVOTHYROXINE SODIUM 64761405711 Active Susan Figueroa NORVASC 5 MG TAB 1 PO QD AMLODIPINE BESYLATE 40403900563 Active Kai Claudio KLOR-CON M20 20 MEQ CR-TABS 1 po daily POTASSIUM CHLORIDE HALINA CR 57224391976 Active Susan Figueroa ULTRAM 50 MG TAB 1 PO TID prn TRAMADOL HCL 57010652902 Active Lakshmi Palmer Porfirio LASIX 20 MG TAB 1 PO daily prn swelling FUROSEMIDE 19553416383 Active Lakshmi Monroy Vital Signs Date Name [...]
--- OUTSIDE RECORDS SUMMARY | 2017-10-24 10:33 | XMS REPORT | Clinical Summary ---
Author Author abdi michaud [facility] [place] [address] Phone Unavailable Allergies, Adverse Reactions, Alerts Allergy Name Reaction Description Start Date Severity Status Provider ERYTHROMYCIN room spinned Critical Active Lakshmi Monroy Conditions or Problems Problem Name Problem Code Onset Date Status Entry Date Provider Comment Standard Description Annotate HYPERTENSION 401.1 Active Lakshmi Monroy ESSENTIAL HYPERTENSION, BENIGN HYPERCHOLESTEROLEMIA 272.0 Active Lakshmi Monroy PURE HYPERCHOLESTEROLEMIA ANXIETY 300.00 Active Lakshmi oMnroy ANXIETY STATE, UNSPECIFIED HYPOTHYROIDISM, PRIMARY 244.9 Active [...] 10 MG TABS 1 po QD LISINOPRIL 48006200910 Active Susan Figueroa METOPROLOL TARTRATE 100 MG TABS 1 po QD METOPROLOL TARTRATE 04020698871 Active Susan Figueroa MULTIVITAMINS TABS 1 po QD MULTIPLE VITAMIN 29912137044 Active Lakshmi Monroy CALCIUM 500-100-40 CHEW 2 PO QAM CALCIUM-VITAMIN D-VITAMIN K 28151120708 Active Lakshmi Monroy ASPIRIN 81 MG TABS 1 PO QD ASPIRIN 62960909280 Active Lakshmi Monroy VITAMIN C 1000 MG TABS 1 po QD prn ASCORBIC ACID 77638332718 Active Lakshmi Monroy MECLIZINE HCL 25 MG TAB 1 PO Q6hrs prn dizziness MECLIZINE HCL 48816732243 Active Irving Galeano GAURAV 180 MG TABS 1 PO daily prn FEXOFENADINE HCL Active Susan Figueroa DIAZEPAM 5 MG TAB 1 PO QAM DIAZEPAM 23088574021 Active Susan Figueroa LUTEIN 6 MG CAPS 1 po BID LUTEIN 62645602725 Active Lakshmianaid Monroy ZADITOR 0.025 % SOLN 1 gtt in OU BID KETOTIFEN FUMARATE 13841600118 Active Lakshmi Monroy TRIAMCINOLONE ACETONIDE 0.1 % OINT apply sparingly to left ear skin daily prn TRIAMCINOLONE ACETONIDE 83436439410 Active Lakshminaaid Monroy LOTRIMIN AF 1 % SOLN 2 drops as directed prn itching. CLOTRIMAZOLE 76478917666 Active Lakshmi Monroy VITAMIN D 1000 UNIT TABS 1 PO Daily CHOLECALCIFEROL 36880959931 Active Lakshmi Monroy FISH OIL 1000 MG CAPS 1 PO QD OMEGA-3 FATTY ACIDS 00293899832 Active Susan Figueroa ZOCOR 40 MG TABS 1 PO daily SIMVASTATIN 94924024324 Active Susan Figueroa SYNTHROID 75 MCG TABS 1 PO daily LEVOTHYROXINE SODIUM 21121561425 Active Susan Figueroa NORVASC 5 MG TAB 1 PO QD AMLODIPINE BESYLATE 46963157385 Active Kai Claudio KLOR-CON M20 20 MEQ CR-TABS 1 po daily POTASSIUM CHLORIDE HALINA CR 45166541815 Active Susan Figueroa ULTRAM 50 MG TAB 1 PO TID prn TRAMADOL HCL 71887592914 Active Lakshmi Palmer Porfirio LASIX 20 MG TAB 1 PO daily prn swelling FUROSEMIDE 13211486615 Active Lakshmi Monroy Vital Signs Date Name [...]
--- OUTSIDE RECORDS SUMMARY | 2017-10-24 10:34 | XMS REPORT | Clinical Summary ---
Author Author abdi michaud [facility] [address] Phone Unavailable Allergies, Adverse Reactions, Alerts Allergy [...] ANXIETY STATE, UNSPECIFIED HYPOTHYROIDISM, PRIMARY 244.9 Active Lakshim Monroy UNSPECIFIED HYPOTHYROIDISM HYPERTENSION, WHITE COAT 796.2 [...] 10 MG TABS 1 po QD LISINOPRIL 00377098816 Active Susan Figueroa METOPROLOL TARTRATE 100 MG TABS 1 po QD METOPROLOL TARTRATE 90987577810 Active Susan Figueroa MULTIVITAMINS TABS 1 po QD MULTIPLE VITAMIN 64032357841 Active Lakshmi Monroy CALCIUM 500-100-40 CHEW 2 PO QAM CALCIUM-VITAMIN D-VITAMIN K 59081606652 Active Lakshmi Monroy ASPIRIN 81 MG TABS 1 PO QD ASPIRIN 82205998448 Active Lakshmi Monroy VITAMIN C 1000 MG TABS 1 po QD prn ASCORBIC ACID 29707574665 Active Lakshmi Monroy MECLIZINE HCL 25 MG TAB 1 PO Q6hrs prn dizziness MECLIZINE HCL 03001971330 Active Irving Galeano GAURAV 180 MG TABS 1 PO daily prn FEXOFENADINE HCL Active Susan Figueroa DIAZEPAM 5 MG TAB 1 PO QAM DIAZEPAM 25348613594 Active Susan Figueroa LUTEIN 6 MG CAPS 1 po BID LUTEIN 06918276914 Active Lakshmianaid Monroy ZADITOR 0.025 % SOLN 1 gtt in OU BID KETOTIFEN FUMARATE 97633481783 Active Lakshmi Monroy TRIAMCINOLONE ACETONIDE 0.1 % OINT apply sparingly to left ear skin daily prn TRIAMCINOLONE ACETONIDE 44911717824 Active Lakshmianaid Monroy LOTRIMIN AF 1 % SOLN 2 drops as directed prn itching. CLOTRIMAZOLE 33875351154 Active Lakshmi Monroy VITAMIN D 1000 UNIT TABS 1 PO Daily CHOLECALCIFEROL 80792491299 Active Lakshmi Monroy FISH OIL 1000 MG CAPS 1 PO QD OMEGA-3 FATTY ACIDS 05957481100 Active Susan Figueroa ZOCOR 40 MG TABS 1 PO daily SIMVASTATIN 67424529691 Active Susan Figueroa SYNTHROID 75 MCG TABS 1 PO daily LEVOTHYROXINE SODIUM 78994861674 Active Susan Figueroa NORVASC 5 MG TAB 1 PO QD AMLODIPINE BESYLATE 39574127600 Active Kai Claudio KLOR-CON M20 20 MEQ CR-TABS 1 po daily POTASSIUM CHLORIDE HALINA CR 20163668954 Active Susan Figueroa ULTRAM 50 MG TAB 1 PO TID prn TRAMADOL HCL 42714623100 Active Lakshmi Monroy LASIX 20 MG TAB 1 PO daily prn swelling FUROSEMIDE 80760950694 Active Lakshmi FORTUNE NASAL SPRAY (DEXAMETHASONE, GENTAMICIN, SALINE) 2 puffs each nostril TID for [address] FORTUNE NASAL SPRAY ( DEXAMETHASONE, GENTAMICIN, SALINE) Active Lakshmi Monroy Vital Signs Date Name Value Unit Range Description blood pressure, diastolic 98 mm[Hg] BP horner blood pressure, systolic 138 mm[Hg] BP sys pulse rate E&M 76 /min Heart rate respiratory rate E&M 14 /min Resp rate temperature E&M 97.9 [degF] Body temperature weight E&M 160 [lb_av] Weight Measured blood pressure, diastolic 82 mm[Hg] BP horner [...]
--- OUTSIDE RECORDS SUMMARY | 2017-10-24 10:34 | XMS REPORT | Clinical Summary ---
Author Author abdi michaud [facility] [place] [address] Phone Unavailable Allergies, Adverse Reactions, Alerts Allergy [...] LOWER LEG EDEMA LEG 782.3 Active Lakshmi Mornoy EDEMA COMPRESSION FRACTURE, THORACIC VERTEBRA 805.2 Active Lakshmi Monroy CLOSED FRACTURE OF DORSAL (THORACIC) VERTEBRA WITHOUT MENTION OF SPINAL CORD INJURY Medication List Medication Instructions Start Date Stop Date Generic Name NDC Status Provider Patient Instruction LISINOPRIL 10 MG TABS 1 po QD LISINOPRIL 87257761037 Active Susan Figueroa METOPROLOL TARTRATE 100 MG TABS 1 po QD METOPROLOL TARTRATE 64784380332 Active Susan Figueroa MULTIVITAMINS TABS 1 po QD MULTIPLE VITAMIN 99797013603 Active Lakshmi Monroy CALCIUM 500-100-40 CHEW 2 PO QAM CALCIUM-VITAMIN D-VITAMIN K 73196810866 Active Lakshmi Monroy ASPIRIN 81 MG TABS 1 PO QD ASPIRIN 93090920916 Active Lakshmi Monroy VITAMIN C 1000 MG TABS 1 po QD prn ASCORBIC ACID 00619793595 Active Lakshmi Monroy MECLIZINE HCL 25 MG TAB 1 PO Q6hrs prn dizziness MECLIZINE HCL 76950828965 Active Irving Galeano GAURAV 180 MG TABS 1 PO daily prn FEXOFENADINE HCL Active Susan Figueroa DIAZEPAM 5 MG TAB 1 PO QAM DIAZEPAM 34877304155 Active Susan Figueroa LUTEIN 6 MG CAPS 1 po BID LUTEIN 45490422099 Active Lakshmianaid Monroy ZADITOR 0.025 % SOLN 1 gtt in OU BID KETOTIFEN FUMARATE 20892475718 Active Lakshmi Monroy TRIAMCINOLONE ACETONIDE 0.1 % OINT apply sparingly to left ear skin daily prn TRIAMCINOLONE ACETONIDE 10774402890 Active Lakshmianaid Monroy LOTRIMIN AF 1 % SOLN 2 drops as directed prn itching. CLOTRIMAZOLE 11014762255 Active Lakshmi Monroy VITAMIN D 1000 UNIT TABS 1 PO Daily CHOLECALCIFEROL 68025142783 Active Lakshmi Monroy FISH OIL 1000 MG CAPS 1 PO QD OMEGA-3 FATTY ACIDS 81679438206 Active Susan Figueroa ZOCOR 40 MG TABS 1 PO daily SIMVASTATIN 27101878643 Active Susan Figueroa SYNTHROID 75 MCG TABS 1 PO daily LEVOTHYROXINE SODIUM 18799138192 Active Susan Figueroa NORVASC 5 MG TAB 1 PO QD AMLODIPINE BESYLATE 65283000378 Active Kai Claudio KLOR-CON M20 20 MEQ CR-TABS 1 po daily POTASSIUM CHLORIDE HALINA CR 04554121642 Active Susan Figueroa ULTRAM 50 MG TAB 1 PO TID prn TRAMADOL HCL 71546910847 Active Lakshmi Palmer Porfirio LASIX 20 MG TAB 1 PO daily prn swelling FUROSEMIDE 86121223155 Active Lakshmi Monroy Vital Signs Date Name Value Unit Range Description blood pressure, diastolic 82 mm[Hg] BP horenr blood pressure, systolic 132 mm[Hg] BP sys [...]
--- OUTSIDE RECORDS SUMMARY | 2017-10-24 10:35 | XMS REPORT | Continuity of Care Document ---
Author Author [facility] Organization [facility] Address Unknown Phone Unavailable Allergies Active Description Code Type Severity Reaction Onset Reported/Identified Relationship to Patient Clinical Status Yes Erythromycin Base [id number] Drug Allergy Unknown N/A 01/17/2014 Yes tramadol [id number] Drug Allergy Mild N/V, Tremor 05/05/2016 Medications There is no data. Problems Date Dx Coded Attending Type Code Diagnosis Diagnosed By 01/28/2013 JOSTIN MATTA MD Ot 784.7 EPISTAXIS 01/22/2014 ISAURO THOMPSON DO Ot 244.9 HYPOTHYROIDISM NOS 01/22/2014 JAY URRUTIA ISAURO Ot 272.0 PURE HYPERCHOLESTEROLEM 01/22/2014 JAY RURUTIA ISAURO Ot 276.51 DEHYDRATION 01/22/2014 JAY URRUTIA ISAURO Ot 276.8 HYPOPOTASSEMIA 01/22/2014 JAY URRUTIA ISAURO Ot 280.9 IRON DEFIC ANEMIA NOS 01/22/2014 DENISSE THOMPSON DOI Ot 300.00 ANXIETY STATE NOS 01/22/2014 JAY RURUTIA ISAURO Ot 401.9 HYPERTENSION NOS 01/22/2014 JAY URRUTIA ISAURO Ot 455.8 HEMRRHOID NOS W COMP NEC 01/22/2014 DENISSE THOMPSON DOI Ot 564.00 UNSPEC CONSTIPATION 01/22/2014 DENISSE THOMPSON DOI Ot 715.90 OSTEOARTHROS NOS-UNSPEC 01/22/2014 JAY URRUTIA ISAURO Ot 724.02 SPINAL STENOSIS, LUMBAR REG, W/OUT NEURO 01/22/2014 JAY URRUTIA ISAURO Ot 729.81 SWELLING OF LIMB 01/22/2014 JAY URRUTIA ISAURO Ot 733.00 OSTEOPOROSIS NOS 01/22/2014 JAY URRUTIA ISAURO Ot 733.13 PATHOLOGIC FRACTURE, VERTEBRAE 01/22/2014 JAY URRUTIA ISAURO Ot 738.4 ACQ SPONDYLOLISTHESIS 01/22/2014 DENISSE THOMPSON DOI Ot 782.3 EDEMA 01/22/2014 DENISSE THOMPSON DOI Ot V43.65 KNEE JOINT REPLACEMENT STATUS 05/05/2016 GGII ZUNIGA DO Ot I10 ESSENTIAL (PRIMARY) HYPERTENSION 05/05/2016 GIGI ZUNIGA DO Ot M16.0 BILATERAL PRIMARY OSTEOARTHRITIS OF HIP 05/05/2016 GIGI ZUNIGA DO Ot M47.812 SPONDYLOSIS W/O MYELOPATHY OR RADICULOPA 05/05/2016 GIGI ZUNIGA DO Ot S00.411A ABRASION OF RIGHT EAR, INITIAL ENCOUNTER 05/05/2016 GIGI ZUNIGA DO Ot S50.811A ABRASION OF RIGHT FOREARM, INITIAL ENCOU 05/05/2016 GIGI ZUNIGA DO Ot S59.911A UNSPECIFIED INJURY OF RIGHT FOREARM, INI 05/05/2016 GIGI ZUNIGA DO Ot S70.01XA CONTUSION OF RIGHT HIP, INITIAL ENCOUNTE 05/05/2016 GIGI ZUNIGA DO Ot W18.09XA STRIKING AGAINST OTH OBJECT W SUBSEQUENT 05/05/2016 GIGI ZUNIGA DO Ot Y92.013 BEDROOM OF SINGLE-FAMILY (PRIVATE) HOUSE 05/05/2016 GIGI ZUNIGA DO Ot Y99.8 OTHER EXTERNAL CAUSE STATUS 05/05/2016 GIGI ZUNIGA DO Ot Z79.82 SKILLED NURSING (CURRENT) USE OF ASPIRIN 05/05/2016 GIGI ZUNIGA DO Ot Z79.899 OTHER SKILLED NURSING (CURRENT) DRUG THERAPY 05/06/2016 GIGI ZUNIGA DO Ot I10 ESSENTIAL (PRIMARY) HYPERTENSION 05/06/2016 GIGI ZUNIGA DO Ot M16.0 BILATERAL PRIMARY OSTEOARTHRITIS OF HIP 05/06/2016 GIGI ZUNIGA DO, Ot M47.812 SPONDYLOSIS W/O MYELOPATHY OR RADICULOPA 05/06/2016 GIGI ZUNIGA DO Ot S00.411A ABRASION OF RIGHT EAR, INITIAL ENCOUNTER 05/06/2016 GIGI ZUNIGA DO Ot S50.811A ABRASION OF RIGHT FOREARM, INITIAL ENCOU 05/06/2016 GIGI ZUNIGA DO Ot S59.911A UNSPECIFIED INJURY OF RIGHT FOREARM, INI 05/06/2016 GIGI ZUNIGA DO Ot S70.01XA CONTUSION OF RIGHT HIP, INITIAL ENCOUNTE 05/06/2016 GIGI ZUNIGA DO Ot W18.09XA STRIKING AGAINST OTH OBJECT W SUBSEQUENT 05/06/2016 GIGI ZUNIGA DO Ot Y92.013 BEDROOM OF SINGLE-FAMILY (PRIVATE) HOUSE 05/06/2016 GIGI ZUNIGA DO Ot Y99.8 OTHER EXTERNAL CAUSE STATUS 05/06/2016 GIGI ZUNIGA DO Ot Z79.82 SKILLED NURSING (CURRENT) USE OF ASPIRIN 05/06/2016 NADIA URRUTIA GIGI Davidson Ot Z79.899 OTHER SKILLED NURSING (CURRENT) DRUG THERAPY 10/14/2017 ORLY CALDERA, ANTHONY Aiken Ot E03.9 HYPOTHYROIDISM, UNSPECIFIED 10/14/2017 ORLY CALDERA, ANTHONY Aiken Ot E78.00 PURE HYPERCHOLESTEROLEMIA, UNSPECIFIED 10/14/2017 ANTHONY VILLALBA MD Ot F41.9 ANXIETY DISORDER, UNSPECIFIED 10/14/2017 ANTHONY VILLALBA MD Ot I10 ESSENTIAL (PRIMARY) HYPERTENSION 10/14/2017 ANTHONY VILLALBA MD Ot K80.20 CALCULUS OF GALLBLADDER W/O CHOLECYSTITI 10/14/2017 ANTHONY VILLALBA MD Ot R10.13 EPIGASTRIC PAIN 10/14/2017 ANTHONY VILLALBA MD Ot Z79.82 SKILLED NURSING (CURRENT) USE OF ASPIRIN 10/14/2017 ORLY CALDERA, ANTHONY Aiken Ot Z87.448 PERSONAL HISTORY OF OTHER DISEASES OF UR 10/14/2017 ORLY CALDERA, ANTHONY Aiken Ot Z88.0 ALLERGY STATUS TO PENICILLIN 10/14/2017 ORLY CALDERA, ANTHONY Aiken Ot Z88.6 ALLERGY STATUS TO ANALGESIC AGENT STATUS 10/14/2017 ORLY CALDERA, ANTHONY Aiken Ot Z96.653 PRESENCE OF ARTIFICIAL KNEE JOINT, BILAT 10/14/2017 Ot 786.07 WHEEZING 10/14/2017 THOMPSON DO, ISAURO Ot 729.5 PAIN IN LIMB 10/17/2017 ANTHONY VILLALBA MD Ot E03.9 HYPOTHYROIDISM, UNSPECIFIED 10/17/2017 ANTHONY VILLALBA MD Ot E78.00 PURE HYPERCHOLESTEROLEMIA, UNSPECIFIED 10/17/2017 ANTHONY VILLALBA MD Ot F41.9 ANXIETY DISORDER, UNSPECIFIED 10/17/2017 ANTHONY VILLALBA MD Ot I10 ESSENTIAL (PRIMARY) HYPERTENSION 10/17/2017 ANTHONY VILLALBA MD Ot K80.20 CALCULUS OF GALLBLADDER W/O CHOLECYSTITI 10/17/2017 ANTHONY VILLALBA MD Ot R10.13 EPIGASTRIC PAIN 10/17/2017 ANTHONY VILLALBA MD Ot 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 10/17/2017 ANTHONY VILLALBA MD Ot Z87.448 PERSONAL HISTORY OF OTHER DISEASES OF UR 10/17/2017 ANTHONY VILLALBA MD Ot Z88.0 ALLERGY STATUS TO PENICILLIN 10/17/2017 ANTHONY VILLALBA MD Ot Z88.6 ALLERGY STATUS TO ANALGESIC AGENT STATUS 10/17/2017 ANTHONY VILLALBA MD Ot Z96.653 PRESENCE OF ARTIFICIAL KNEE JOINT, BILAT Procedures Code Description Performed By Performed On 03.91 ANESTH INJECT-SPIN CANAL 01/21/2014 03.92 SPINAL CANAL INJECT NEC 01/21/2014 77.49 BONE BIOPSY NEC 01/21/2014 81.66 PERCUTANEOUS VERTEBRAL AUGMENTATION 01/21/2014 99.23 INJECT STEROID 01/21/2014 Results Test Result Range Complete blood count (CBC) with automated white blood cell (WBC) differential - 05/05/16 03:00 Blood leukocytes automated count (number/volume) 7.1 10*3/uL 4.3-11.0 Blood erythrocytes automated count (number/volume) 4.83 10*6/uL 4.35-5.85 Venous blood hemoglobin measurement (mass/volume) 14.1 g/dL 11.5-16.0 Blood hematocrit (volume fraction) 43 % 35-52 Automated erythrocyte mean corpuscular volume 88 [foz_us] 80-99 Automated erythrocyte mean corpuscular hemoglobin (mass per erythrocyte) 29 pg 25-34 Automated erythrocyte mean corpuscular hemoglobin concentration measurement ( mass/volume) 33 g/dL 32-36 Automated erythrocyte distribution width ratio 13.9 % 10.0-14.5 Automated blood platelet count (count/volume) 202 10*3/uL 130-400 Automated blood platelet mean volume measurement 10.7 [foz_us] 7.4-10.4 Automated blood neutrophils/100 leukocytes 54 % 42-75 Automated blood lymphocytes/100 leukocytes 31 % 12-44 Blood monocytes/100 leukocytes 12 % 0-12 Automated blood eosinophils/100 leukocytes 2 % 0-10 Automated blood basophils/100 leukocytes 1 % 0-10 Blood neutrophils automated count (number/volume) 3.9 10*3 1.8-7.8 Blood lymphocytes automated count (number/volume) 2.2 10*3 1.0-4.0 Blood monocytes automated count (number/volume) 0.8 10*3 0.0-1.0 Automated eosinophil count 0.1 10*3/uL 0.0-0.3 Automated blood basophil count (count/volume) 0.1 10*3/uL 0.0-0.1 PT panel in platelet poor plasma by coagulation assay - 05/05/16 03:00 Prothrombin time (PT) in platelet poor plasma by coagulation assay 12.1 s 12.2-14.7 INR in platelet poor plasma or blood by coagulation assay 0.9 0.8-1.4 Activated partial thromboplastin time (aPTT) in platelet poor plasma bycoagulation assay - 05/05/16 03:00 Activated partial thromboplastin time (aPTT) in platelet poor plasma bycoagulation assay 25 s 24-35 Comprehensive metabolic panel - 05/05/16 03:00 Serum or plasma sodium measurement (moles/volume) 138 mmol/L 135-145 Serum or plasma potassium measurement (moles/volume) 3.5 mmol/L 3.6-5.0 Serum or plasma chloride measurement (moles/volume) 103 mmol/L 98-107 Carbon dioxide 23 mmol/L 21-32 Serum or plasma anion gap determination (moles/volume) 12 mmol/L 5-14 Serum or plasma urea nitrogen measurement (mass/volume) 14 mg/dL 7-18 Serum or plasma creatinine measurement (mass/volume) 1.10 mg/dL 0.60-1.30 Serum or plasma urea nitrogen/creatinine mass ratio 13 NRG Serum or plasma creatinine measurement with calculation of estimated glomerular filtration rate 47 NRG Serum or plasma glucose measurement (mass/volume) 116 mg/dL 70-105 Serum or plasma calcium measurement (mass/volume) 9.3 mg/dL 8.5-10.1 Serum or plasma total bilirubin measurement (mass/volume) 0.4 mg/dL 0.1-1.0 Serum or plasma alkaline phosphatase measurement (enzymatic activity/volume) 61 U/L 40-136 Serum or plasma aspartate aminotransferase measurement (enzymatic activity/ volume) 19 U/L 5-34 Serum or plasma alanine aminotransferase measurement (enzymatic activity/volume ) 12 U/L 0-55 Serum or plasma protein measurement (mass/volume) 7.1 g/dL 6.4-8.2 Serum or plasma albumin measurement (mass/volume) 4.1 g/dL 3.2-4.5 Complete urinalysis with reflex to culture - 10/14/17 10:25 Urine color determination YELLOW NRG Urine clarity determination SLIGHTLY CLOUDY NRG Urine pH measurement by test strip 8 5-9 Specific gravity of urine by test strip 1.015 1.016- 1.022 Urine protein assay by test strip, semi-quantitative 1+ NEGATIVE Urine glucose detection by automated test strip NEGATIVE NEGATIVE Erythrocytes detection in urine sediment by light microscopy 1+ NEGATIVE Urine ketones detection by automated test strip NEGATIVE NEGATIVE Urine nitrite detection by test strip NEGATIVE NEGATIVE Urine total bilirubin detection by test strip NEGATIVE NEGATIVE Urine urobilinogen measurement by automated test strip (mass/volume) NORMAL NORMAL Urine leukocyte esterase detection by dipstick NEGATIVE NEGATIVE Automated urine sediment erythrocyte count by microscopy (number/high power field) [HPF] NRG Automated urine sediment leukocyte count by microscopy (number/high power field ) NONE NRG Bacteria detection in urine sediment by light microscopy TRACE NRG Squamous epithelial cells detection in urine sediment by light microscopy 0-2 NRG Crystals detection in urine sediment by light microscopy NONE NRG Casts detection in urine sediment by light microscopy PRESENT NRG Mucus detection in urine sediment by light microscopy SMALL NRG Complete urinalysis with reflex to culture NO NRG Hyaline casts detection in urine sediment by light microscopy 0-2 NRG Complete blood count (CBC) with automated white blood cell (WBC) differential - 10/14/17 10:30 Blood leukocytes automated count (number/volume) 9.8 10*3/uL 4.3-11.0 Blood erythrocytes automated count (number/volume) 4.79 10*6/uL 4.35-5.85 Venous blood hemoglobin measurement (mass/volume) 14.2 g/dL 11.5-16.0 Blood hematocrit (volume fraction) 42 % 35-52 Automated erythrocyte mean corpuscular volume 88 [foz_us] 80-99 Automated erythrocyte mean corpuscular hemoglobin (mass per erythrocyte) 30 pg 25-34 Automated erythrocyte mean corpuscular hemoglobin concentration measurement ( mass/volume) 34 g/dL 32-36 Automated erythrocyte distribution width ratio 14.2 % 10.0-14.5 Automated blood platelet count (count/volume) 228 10*3/uL 130-400 Automated blood platelet mean volume measurement 10.7 [foz_us] 7.4-10.4 Automated blood neutrophils/100 leukocytes 76 % 42-75 Automated blood lymphocytes/100 leukocytes 11 % 12-44 Blood monocytes/100 leukocytes 12 % 0-12 Automated blood eosinophils/100 leukocytes 1 % 0-10 Automated blood basophils/100 leukocytes 0 % 0-10 Blood neutrophils automated count (number/volume) 7.4 10*3 1.8-7.8 Blood lymphocytes automated count (number/volume) 1.1 10*3 1.0-4.0 Blood monocytes automated count (number/volume) 1.2 10*3 0.0-1.0 Automated eosinophil count 0.1 10*3/uL 0.0-0.3 Automated blood basophil count (count/volume) 0.0 10*3/uL 0.0-0.1 Comprehensive metabolic panel - 10/14/17 10:30 Serum or plasma sodium measurement (moles/volume) 139 mmol/L 135-145 Serum or plasma potassium measurement (moles/volume) 4.0 mmol/L 3.6-5.0 Serum or plasma chloride measurement (moles/volume) 102 mmol/L 98-107 Carbon dioxide 25 mmol/L 21-32 Serum or plasma anion gap determination (moles/volume) 12 mmol/L 5-14 Serum or plasma urea nitrogen measurement (mass/volume) 12 mg/dL 7-18 Serum or plasma creatinine measurement (mass/volume) 0.98 mg/dL 0.60-1.30 Serum or plasma urea nitrogen/creatinine mass ratio 12 NRG Serum or plasma creatinine measurement with calculation of estimated glomerular filtration rate 54 NRG Serum or plasma glucose measurement (mass/volume) 102 mg/dL 70-105 Serum or plasma calcium measurement (mass/volume) 10.0 mg/dL 8.5-10.1 Serum or plasma total bilirubin measurement (mass/volume) 0.9 mg/dL 0.1-1.0 Serum or plasma alkaline phosphatase measurement (enzymatic activity/volume) 62 U/L 40-136 Serum or plasma aspartate aminotransferase measurement (enzymatic activity/ volume) 18 U/L 5-34 Serum or plasma alanine aminotransferase measurement (enzymatic activity/volume ) 9 U/L 0-55 Serum or plasma protein measurement (mass/volume) 7.7 g/dL 6.4-8.2 Serum or plasma albumin measurement (mass/volume) 4.2 g/dL 3.2-4.5 Lipase - 10/14/17 10:30 Lipase 29 U/L 8-78 Encounters ACCT No. Visit Date/Time Discharge Status Pt. Type Provider Facility Loc./Unit Complaint [id number] 10/14/2017 10:21:00 10/14/2017 13:22:00 DIS Emergency ORLY CALDERA, ANTHONY Aiken [facility] ER ABD PAIN [id number] 05/05/2016 02:04:00 05/05/2016 04:45:00 DIS Emergency GIGI ZUNIGA DO [facility] ER FALL AT HOME,RT ARM LAC HIP PAIN,HIT HEAD [id number] 01/18/2014 11:45:00 01/22/2014 10:50:00 DIS Inpatient ISAURO THOMPSON DO [facility] SURGICAL DEHYDRATION,ANEMIA, SEVERE BACK PAIN [id number] 12/19/2013 11:06:00 12/19/2013 23:59:59 CLS Outpatient ISAURO THOMPSON DO [facility] RAD RT LEG PAIN [id number] 01/28/2013 01:54:00 01/28/2013 02:54:00 DIS Emergency JOSTIN MATTA MD [facility] ER NOSE BLEED [id number] 05/02/2012 13:40:00 Document Registration
--- OUTSIDE RECORDS SUMMARY | 2017-10-24 10:35 | XMS REPORT | Clinical Summary ---
Author Author abdi michaud [facility] [place] [address] Phone Unavailable Allergies, Adverse Reactions, Alerts Allergy [...] 10 MG TABS 1 po QD LISINOPRIL 59349108963 Active Susan Figueroa METOPROLOL TARTRATE 100 MG TABS 1 po QD METOPROLOL TARTRATE 25270022725 Active Susan Figueroa MULTIVITAMINS TABS 1 po QD MULTIPLE VITAMIN 05616865196 Active Lakshmi Monroy CALCIUM 500-100-40 CHEW 2 PO QAM CALCIUM-VITAMIN D-VITAMIN K 31361823547 Active Lakshmi Monroy ASPIRIN 81 MG TABS 1 PO QD ASPIRIN 36276349313 Active Lakshmi Monroy VITAMIN C 1000 MG TABS 1 po QD prn ASCORBIC ACID 14377920651 Active Lakshmi Monroy MECLIZINE HCL 25 MG TAB 1 PO Q6hrs prn dizziness MECLIZINE HCL 07616820777 Active Irving Galeano GAURAV 180 MG TABS 1 PO daily prn FEXOFENADINE HCL Active Susan Figueroa DIAZEPAM 5 MG TAB 1 PO QAM DIAZEPAM 12845031265 Active Susan Figueroa LUTEIN 6 MG CAPS 1 po BID LUTEIN 39216991454 Active Lakshmianaid Monroy ZADITOR 0.025 % SOLN 1 gtt in OU BID KETOTIFEN FUMARATE 78356885930 Active Lakshmi Monroy TRIAMCINOLONE ACETONIDE 0.1 % OINT apply sparingly to left ear skin daily prn TRIAMCINOLONE ACETONIDE 41662830421 Active Lakshmianaid Monroy LOTRIMIN AF 1 % SOLN 2 drops as directed prn itching. CLOTRIMAZOLE 18252631719 Active Lakshmi Monroy VITAMIN D 1000 UNIT TABS 1 PO Daily CHOLECALCIFEROL 64506403586 Active Lakshmi Monroy FISH OIL 1000 MG CAPS 1 PO QD OMEGA-3 FATTY ACIDS 41642512529 Active Susan Figueroa ZOCOR 40 MG TABS 1 PO daily SIMVASTATIN 69347908496 Active Susan Figueroa SYNTHROID 75 MCG TABS 1 PO daily LEVOTHYROXINE SODIUM 34323694831 Active Susan Figueroa NORVASC 5 MG TAB 1 PO QD AMLODIPINE BESYLATE 60875885701 Active Kai Claudio KLOR-CON M20 20 MEQ CR-TABS 1 po daily POTASSIUM CHLORIDE HALINA CR 31043633958 Active Susan Figueroa ULTRAM 50 MG TAB 1 PO TID prn TRAMADOL HCL 52363446317 Active Lakshmi Palmer Porfirio LASIX 20 MG TAB 1 PO daily prn swelling FUROSEMIDE 65723654879 Active Lakshmi Monroy Vital Signs Date Name [...]
[2017-10-24] MEDS ORDERED: LIDOCAINE/EPI 1%-1:200,000 (XYLOCAINE) 10 ML VIAL ONE (10:47)
--- NOTE | 2017-10-24 11:28 | Progress Note-Pre Operative ---
Pre-Operative Progress Note H&P Reviewed The H&P was reviewed, patient examined and no changes noted. Time Seen by Provider: 11:25 Date H&P Reviewed: Oct 24, 2017 Time H&P Reviewed: 11:28 Pre-Operative Diagnosis: Estefani/Estefani ELVIA DIA DO Oct 24, 2017 11:28
--- NOTE | 2017-10-24 12:32 | Progress Note-Post Operative ---
Post-Operative Progess Note Surgeon (s)/Sap Developer (s) Surgeon ELVIA DIA DO Sap Developer: Jose Pre-Operative Diagnosis Estefani/Estefani Post-Operative Diagnosis Estefani/Estefani with Choledochalithiasis Procedure & Operative Findings Date of Procedure 10/24/17 Procedure Performed/Findings Lap Estefani with IOC Anesthesia Type GET Estimated Blood Loss Estimated blood loss (mL): scant Specimens/Packing Specimens Removed GB and contents ELVIA DIA DO Oct 24, 2017 12:31
[2017-10-24] MEDS ORDERED: ACHD5005 PO (12:33)
--- NOTE | 2017-10-24 12:35 | Discharge Inst-Surgical ---
Discharge Inst-Surgical Depart Medication/Instructions New, Converted or Re-Newed RX: RX Given to Pt/Family Patient Instructions Follow up Appt: Make appointment for 2 weeks. Instructions: No lifting greater than 10 pounds. No strenuous activity. May shower in 24 hours, no tub bath or soaking. Use incentive spirometer at home as directed. No Smoking Skin/Wound Care: May remove bandages in am. You need to leave the Dermabond on over incision it will fall off on its own. Symptoms to Report: Appetite Changes, Extremity Discoloration, Numbness/Tingling, Swelling Increased , Bleeding Excessive, Eyesight Changes, Pain Increased, Urine Color Change, Constipation(Persistent), Fever over 101 degree F, Pain/Pressure in chest, Urinating Difficulty, Cough Up/Vomit Blood, Heart Beat Irreg/Pounding, Pain/ Pressure in jaw, Vaginal Bleeding Increase, Cramps in feet or legs, Lightheadedness, Pain/Pressure in shoulder, Diarrhea(Persistent), Memory Changes Suddenly, Questions/Concerns, Weight gain consecutive days, Dizziness/ Fainting, Nausea/Vomiting, Shortness of Breath, Weight gain over 2 pounds. If eyes or skin turn yellow notify physician. If questions or concerns contact your physician Or seek help at emergency department. Activity Activity as Tolerated: Yes Driving Instructions: No Driving/Refer to Diet Discharge Diet: Avoid Fatty Foods, Low Fat/Low Cholesterol Diet After 24 Hours: Clear Liquid if Nauseous If Any Problems/Questions/Issu: Contact Your Physician, Go to Emergency Room Skin/Wound Care Infection Signs and Symptoms: Increased Redness, Foul Odor of Wound, Increased Drainage, Skin Itchy or Has a Rash, Increased Swelling, Temperature Above 101 F Wound Care Comment: Heating pad to neck or shoulder tonight for pain Bathing Instructions: Shower Stitches/Mirza/Dermabond Dis: Dermabond Ice Pack: Ice On and Off Site (as needed for pain) ELVIA DIA DO Oct 24, 2017 12:35
[2017-10-24] MEDS ORDERED: GLYCOPYRROLATE 0.2 MG/ML (ROBINUL) 2 ML VIAL ONE (12:44)
[2017-10-24] MEDS ORDERED: NEOSTIGMINE 1 MG/ML 5 ML SYRINGE ONE (12:44)
[2017-10-24] MEDS ORDERED: ONDANSETRON 4 MG/2 ML (SDV) Z0FRAN IVP PRN (13:00)
--- NOTE | 2017-10-24 13:05 | Diagnostic Imaging Report ---
INDICATION: Gallbladder disease. FINDINGS: Two fluoroscopic images are submitted from an intraoperative cholangiogram. The common bile duct appears to be normal in caliber. There is free flow of contrast in the duodenum. IMPRESSION: Limited intraoperative cholangiogram as described. Please correlate with the formal operative report. Dictated by: Dictated on workstation # [id number]
[2017-10-24] MEDS: fentaNYL INJECTION 100 MCG/2 ML AMP IVP PRN ×4 (13:10→13:25)
[2017-10-24 13:55] VITALS: BP 174/92
--- NOTE | 2017-10-24 14:30 | Anesthesia-General Post-Op ---
General Patient Condition Mental Status/LOC: Same as Preop Cardiovascular: Satisfactory Nausea/Vomiting: Absent Respiratory: Satisfactory Pain: Controlled Complications: Absent Post Op Complications Complications None Follow Up Care/Instructions Patient Instructions None needed. Anesthesia/Patient Condition Patient Condition Patient is doing well, no complaints, stable vital signs, no apparent adverse anesthesia problems. No complications reported per nursing. EDITH SHANNON CRNA Oct 24, 2017 14:30
[2017-10-24] MEDS ORDERED: HYDROcodone/APAP 5 MG/325 MG (LORTAB) TAB ONE (14:34)
[2017-10-24 14:40] VITALS: BP 163/86
[2017-10-24] MEDS ORDERED: HYDROcodone/APAP 5 MG/325 MG (LORTAB) TAB PO PRN (14:45)
[2017-10-24 15:15] VITALS: BP 170/80
[2017-10-24 17:00] VITALS: BP 161/74
[2017-10-24 18:45] VITALS: BP 161/74
--- NOTE | 2017-10-24 23:14 | OPERATIVE REPORT ---
DATE OF SERVICE: 10/24/2017 PREOPERATIVE DIAGNOSES: Cholecystitis with cholelithiasis, suspected possible choledocholithiasis. POSTOPERATIVE DIAGNOSES: 1. Cholelithiasis with cholecystitis. 2. Choledocholithiasis without obstruction. PROCEDURE: Laparoscopic cholecystectomy with intraoperative cholangiogram. SURGEON: David Rangel DO DENTAL LABORATORY TECHNOLOGY TEACHER: Juan Garcia DO ANESTHESIA: General endotracheal tube. SPECIMEN: Gallbladder and contents. BLOOD LOSS: Scant. FLUIDS: Per anesthesia. POSTOPERATIVE CONDITION: Stable. INDICATION FOR PROCEDURE: The patient is an 87-year-old female who has been having some mild to moderate abdominal pain and had a CT, which showed stones in the gallbladder as well as possible stones in the common bile duct needed to get this gallbladder removed and check to see if she did have stones with a cholangiogram. FINDINGS: The patient had some adhesions of the gallbladder is usually indicative of previous gallbladder attacks. As well, she had cholangiogram done, which did show stones down in the distal portion of the common bile duct, but not obstructing. PROCEDURE NOTE: After informed consent was obtained, the patient was brought to the operating room, placed on the operating table in supine position. She was sterilely prepped and draped in normal fashion. Local lidocaine was used to infiltrate the skin above the umbilicus. Made an incision with #11 blade, carried down through the skin into the subcutaneous tissue, then deepened down to subcutaneous tissue with Bovie electrocautery down to the fascia. Fascia incised with Bovie electrocautery, then bluntly entered the abdomen, swept the finger around, placed 0 Vicryl [id number] suture, then placed 11 mm trocar port under direct visualization. Created pneumoperitoneum and then placed 3 more ports in normal fashion using local lidocaine, 11 blade for stab incision and VersaStep system, all done under direct visualization, 1 subxiphoid and 2 in the right upper quadrant. The patient then placed in reverse Trendelenburg and rotated left, able to visualize the gallbladder, grasped at the fundus and taken in superior direction. There were some adhesions. These were carefully taken down, then grasped down the Ivan's pouch and pulled in the inferolateral direction. Cystic duct looked very large. As well she had a large cystic artery coming around and twisting around the gallbladder. Started dissecting out the cystic duct and cystic artery, encountered a small accessory branch of the cystic artery, clipped this, once distally, one proximally and cut it and then able to get around the cystic artery and the cystic duct. Clipped the cystic duct once distally and then clipped the cystic artery, once distally, one proximally and cut the cystic duct residential through Metzenbaum scissors and immediately saw some small black stones. The duct was very large. Placed a cholangiogram catheter in the duct and then shot a cholangiogram. Good spillage of dye down the cystic duct into the common duct and then down to the small intestine, down the common bile duct and the small intestine as well as going up into common hepatic and right and left hepatics; however, down the distal portion of the common bile duct just before entering the small intestine there were some small stones that could be seen. Cholangiogram catheter was removed because the cystic duct was so large, elected to use an Endoloop. Got the Endoloop around the cystic duct and then tightened it down and then cut the Endoloop. Cut the cystic artery with Metzenbaum scissors and then removed the gallbladder from bed of liver with L-hook cautery, which was completely removed, placed a bag in the abdomen, placed the gallbladder in the bag and then removed this through the supraumbilical incision. Placed the port back in. Copiously irrigated with normal saline, suctioned this out, looked around, no bleeding, no other obvious pathology and then placed the patient supine, removed all ports under direct visualization, allowed pneumoperitoneum to escape as well as suctioned out. Closed the supraumbilical incision, closed the fascia with 0 Vicryl suture previously placed. Copiously irrigated all incisions with normal saline, closing the 3 small 5 mm incisions with single interrupted 4-0 undyed Monocryl subcuticular stitch, closed supraumbilical incision with 3 interrupted 4-0 undyed Monocryl subcuticular stitches. Area was cleaned and dried. Dermabond placed as well as bandage. The patient then transferred to recovery room in stable condition. Sponge, instrument and needle counts correct at the end of the case. Dr. Garcia assisted on this case helping to make incisions, grasping anatomy, helping to identify anatomy and then closing the incisions. Job ID: [id number] DocumentID: [id number] Dictated Date: 10/24/2017 15:48:59 Belt Brander Date: 10/24/2017 23:13:58 Dictated By: DAVID RANGEL DO
== END 2017-10-24 18:45 | disposition home or self-care (01) ==
LOC: SDC 09:45
PROVIDERS: ATTEND Surgery
DX: K80.10 Calculus of gallbladder with chronic cholecystitis without obstruction (principal); K80.50 Calculus of bile duct without cholangitis or cholecystitis without obstruction; I10 Essential (primary) hypertension; E78.5 Hyperlipidemia, unspecified; F41.9 Anxiety disorder, unspecified; E03.9 Hypothyroidism, unspecified; Z87.442 Personal history of urinary calculi; Z96.653 Presence of artificial knee joint, bilateral; Z79.899 Other long term (current) drug therapy
CPT/HCPCS: 87081; 94664

== ENCOUNTER → 2017-11-15 | Outpatient (CLI) | payer MEDICARE, OTHER ==
[~2017-11-15] MED LIST changes: +ACHD5005 PO
--- NOTE | 2017-11-15 10:08 | Diagnostic Imaging Report ---
CLINICAL INDICATION: Patient with cough since gallbladder surgery end october. EXAM: Chest x-ray PA and lateral views. COMPARISON: Chest x-ray dated 05/05/2016. FINDINGS: There is increased discoid-like opacity in the right lung base region suspected to represent atelectasis versus scarring. There is otherwise no lung infiltrate. There is a meniscus appearance involving the right lung base region which may represent minimal right pleural effusion or pleural thickening. There is stable elevation of the right hemidiaphragm. Remainder of the lungs are clear. Pulmonary vasculature and cardiac silhouette is within normal limits. Again seen osteopenia with compression fracture deformities involving the lower thoracic region with kyphosis seen. There is kyphoplasty of a lower thoracic vertebra again noted. IMPRESSION: 1: There is increased atelectasis involving the right lung base region. There is also suspected minimal right pleural effusion. Superimposed mild infiltrate involving the right lung base can't be completely excluded. 2: The remainder of this exam shows no significant interval change compared to the prior study of comparison. Dictated by: Dictated on workstation # [id number]
== END ==
LOC: RAD 09:30
PROVIDERS: ATTEND Internal Medicine
DX: J98.11 Atelectasis (principal); Z98.890 Other specified postprocedural states
CPT/HCPCS: 71046